=== PATIENT | female | born 1955 | race Caucasian/White ===

== ENCOUNTER 2019-10-07 15:41 | Observation (INO) | payer BC ==
[2019-10-07] MEDS ORDERED: BABY ASPIRIN 81 MG CHEW PO ONE ×2 (16:27→16:33)
[2019-10-07] MEDS ORDERED: BABY ASPIRIN 81 MG CHEW ONE (16:33)
--- NOTE | 2019-10-07 16:36 | ERPHSYRPT ---
- History of Present Illness Time Seen by Provider: 10/07/19 16:00 Source: patient Exam Limitations: no limitations Patient Subjective Stated Complaint: abnormal labs Triage Nursing Assessment: pt to ED sent over from PCP for abnormal labs. pt states she does not know what labs were off. pt states she had EKG, cxr, and labs drawn today. was ordered EKG and cxr for heart palp x 2 weeks ordered by PCP. pt states feels anxious. denies CP or SOB. denies pain today. also denies cardiac hx. heart sounds clear, lung sounds clear and equal bilaterally. Physician History: 63 years old female with history of hypertension presented in the ER with chief complaint of more than a month off and on palpitation especially at nighttime. She has cut down her caffeine but still having palpitations and during that time she feels very anxious. She also report 2 weeks ago she had some burning sensation in the right anterior chest while she was cutting her grass in the yard. She does not have any chest pain or palpitation at present. She was seen at primary care office with chest x-ray and EKG done and was called to return to ER because of abnormal EKG. She denies any history of coronary artery disease but does have a strong family history of CAD. Denies tobacco abuse, cough fever or shortness of breath. Denies any [id number]-flmcnio cough and cold medications intake. Denies any drug or alcohol use. Timing/Duration: week(s), intermittent, improved Severity: moderate Modifying Factors: Improves With: nothing Associated Symptoms: chest pain Allergies/Adverse Reactions: adhesive tape Allergy (Verified 10/07/19 16:04) Rash Home Medications: Aspirin EC 81 mg [Ecotrin 81 mg] 81 mg PO DAILY 10/07/19 [History] Levothyroxine Sodium [Euthyrox] 50 mcg PO DAILY 10/07/19 [History] clonazePAM [Clonazepam] 0.25 - 0.5 mg PO BIDPRN PRN 10/07/19 [History] lisinopriL [Lisinopril] 5 mg PO DAILY 10/07/19 [History] Travel Risk - International Travel Have you traveled outside of the country in past 3 weeks: No - Coronavirus Screening Are you exhibiting any of the following symptoms?: No Close contact with a COVID-19 positive Pt in past 14-21 Days: No - Review of Systems Constitutional: No Symptoms Eyes: No Symptoms Ears, Nose, & Throat: No Symptoms Respiratory: No Symptoms Cardiac: Chest Pain, Palpitations Abdominal/Gastrointestinal: No Symptoms Genitourinary Symptoms: No Symptoms Musculoskeletal: No Symptoms Psychological: Anxiety Endocrine: No Symptoms Hematologic/Lymphatic: No Symptoms Immunological/Allergic: No Symptoms - Past Medical History Pertinent Past Medical History: Yes Cardiac History: Hypertension Endocrine Medical History: Hypothyroidism - Past Surgical History Past Surgical History: Yes Female Surgical History: Hysterectomy, Tubal Ligation Other Surgical History: cyst removed from neck, heel supr, bladder extension, carpal tunnel - Social History Smoking Status: Never smoker Exposure to second hand smoke: No Drug Use: none Patient Lives Alone: No - Female History Hx Now: No - Nursing Vital Signs Nursing Vital Signs: Initial Vital Signs Temperature 99.0 F 10/07/19 15:54 Pulse Rate 83 10/07/19 15:54 Respiratory Rate 18 10/07/19 15:54 Blood Pressure 158/81 10/07/19 15:54 O2 Sat by Pulse Oximetry 95 10/07/19 15:54 Pain Scale Pain Intensity 0 - Physical Exam General Appearance: no apparent distress, alert Eye Exam: PERRL/EOMI, eyes nml inspection Ears, Nose, Throat Exam: normal ENT inspection, TMs normal, pharynx normal Neck Exam: normal inspection, non-tender, supple, full range of motion Respiratory Exam: normal breath sounds, lungs clear Cardiovascular Exam: regular rate/rhythm, normal heart sounds Gastrointestinal/Abdomen Exam: soft, normal bowel sounds, No tenderness Back Exam: normal inspection, normal range of motion, No CVA tenderness Neurologic Exam: alert, oriented x 3, cooperative, maintenance apprentice II-XII nml as tested Skin Exam: normal color SpO2 Interpretation: normal SpO2: 95 O2 Delivery: Room Air - Course Nursing assessment & vital signs reviewed: Yes EKG Interpreted by Me: RATE, Sinus Rhythm (76), NORMAL AXIS, NORMAL INTERVALS (Mild ST depression in V2 V3/V4) Ordered Tests: Active Orders 24 hr Category Date Time Status Bedrest with BRP/BSC ROUTINE Activity 10/07/19 18:15 Active Up With Assistance ROUTINE Activity 10/07/19 18:15 Active Mail Delivery Supervisor STAT Care 10/07/19 16:27 Completed Code Status Order ROUTINE Care 10/07/19 18:15 Active EKG-ER Only STAT Care 10/07/19 16:27 Completed IV Care Q6H Care 10/07/19 18:15 Active IV Insertion STAT Care 10/07/19 16:[address] in Observation ROUTINE Care 10/07/19 18:15 Active Weight,Daily 0600 Care 10/07/19 18:15 Active Heart-Healthy Diet Diet 10/07/19 Breakfast Active CBC W DIFF AM.LAB Lab 10/08/19 04:00 Ordered CBC W DIFF Stat Lab 10/07/19 16:30 Completed CMP AM.LAB Lab 10/08/19 04:00 Ordered CMP Stat Lab 10/07/19 16:30 Completed D-DIMER QUANTITATIVE Stat Lab 10/07/19 16:30 Completed NT PRO BNP Stat Lab 10/07/19 16:30 Completed TROPONIN Q3H Lab 10/07/19 16:30 Completed TROPONIN Q3H Lab 10/07/19 19:30 Ordered TROPONIN Q3H Lab 10/07/19 22:30 Ordered TROPONIN Q3H Lab 10/08/19 01:30 Ordered TROPONIN Q3H Lab 10/08/19 04:30 Ordered Transfer Order Routine Transfer 10/07/19 Completed Medication Summary Generic Name Dose Route Start Last Admin Trade Name Freq PRN Reason Stop Dose Admin Acetaminophen 650 mg 10/07/19 18:15 Tylenol 325 Mg PO 11/06/19 18:14 Q4H PRN PRN PAIN AND/OR FEVER Famotidine 20 mg 10/07/19 22:00 Pepcid 20 Mg Vial IV 11/06/19 21:59 Q12HT BLANCA Ondansetron HCl 4 mg 10/07/19 18:15 Zofran 4 Mg/2 Ml Vial IV 11/06/19 18:14 Q6H PRN PRN NAUSEA/VOMITING Discontinued Medications Generic Name Dose Route Start Last Admin Trade Name Freq PRN Reason Stop Dose Admin Aspirin 324 mg 10/07/19 16:27 10/07/19 16:33 Baby Aspirin 81 Mg Chew PO 10/07/19 16:28 Not Given STAT ONE Aspirin 243 mg 10/07/19 16:33 10/07/19 16:34 Baby Aspirin 81 Mg Chew PO 10/07/19 16:34 243 mg STAT ONE Administration Aspirin Confirm 10/07/19 16:33 Baby Aspirin 81 Mg Chew Administered 10/07/19 16:34 Dose 243 mg .ROUTE .STK-MED ONE Lab/Rad Data: Laboratory Result Diagrams 10/07/19 16:30 10/07/19 16:30 Laboratory Results 10/07/19 10/07/19 10/07/19 Range/Units 16:30 16:30 16:30 WBC (4.0-10.5) K/mm3 RBC (4.1-5.4) M/mm3 Hgb (12.0-16.0) gm/dl Hct (35-47) % MCV (78-100) fl MCH (26-32) pg MCHC (32-36) g/dl RDW (11.5-14.0) % Plt Count (150-450) K/mm3 MPV (7.5-11.0) fl Gran % (36.0-66.0) % Eos # (Auto) (0-0.5) Absolute Lymphs (auto) (1.0-4.6) Absolute Monos (auto) (0.0-1.3) Lymphocytes % (24.0-44.0) % Monocytes % (0.0-12.0) % Eosinophils % (0.00-5.0) % Basophils % (0.0-0.4) % Absolute Granulocytes (1.4-6.9) Basophils # (0-0.4) D-Dimer 264 (215-500) ng/mL Sodium 137 (137-145) mmol/L Potassium 3.8 (3.5-5.1) mmol/L Chloride 104 (98-107) mmol/L Carbon Dioxide 25 (22-30) mmol/L Anion Gap 12.8 (5-15) MEQ/L BUN 16 (7-17) mg/dL Creatinine 0.50 L (0.52-1.04) mg/dL Estimated GFR > 60.0 ML/MIN Glucose 107 H (74-106) mg/dL Calcium 10.6 H (8.4-10.2) mg/dL Total Bilirubin 0.80 (0.2-1.3) mg/dL AST 31 (14-36) U/L ALT 31 (0-35) U/L Alkaline Phosphatase 77 (38-126) U/L Troponin I < 0.012 (0.000-0.034) ng/mL NT-Pro-B Natriuret Pep 67.1 (0-900) pg/mL Serum Total Protein 7.8 (6.3-8.2) g/dL Albumin 4.8 (3.5-5.0) g/dL 10/07/19 Range/Units 16:30 WBC 4.9 (4.0-10.5) K/mm3 RBC 4.44 (4.1-5.4) M/mm3 Hgb 14.3 (12.0-16.0) gm/dl Hct 42.3 (35-47) % MCV 95.3 (78-100) fl MCH 32.2 H (26-32) pg MCHC 33.8 (32-36) g/dl RDW 13.4 (11.5-14.0) % Plt Count 226 (150-450) K/mm3 MPV 10.4 (7.5-11.0) fl Gran % 59.1 (36.0-66.0) % Eos # (Auto) 0.10 (0-0.5) Absolute Lymphs (auto) 1.46 (1.0-4.6) Absolute Monos (auto) 0.40 (0.0-1.3) Lymphocytes % 30.0 (24.0-44.0) % Monocytes % 8.2 (0.0-12.0) % Eosinophils % 2.1 (0.00-5.0) % Basophils % 0.6 (0.0-0.4) % Absolute Granulocytes 2.87 (1.4-6.9) Basophils # 0.03 (0-0.4) D-Dimer (215-500) ng/mL Sodium (137-145) mmol/L Potassium (3.5-5.1) mmol/L Chloride (98-107) mmol/L Carbon Dioxide (22-30) mmol/L Anion Gap (5-15) MEQ/L BUN (7-17) mg/dL Creatinine (0.52-1.04) mg/dL Estimated GFR ML/MIN Glucose (74-106) mg/dL Calcium (8.4-10.2) mg/dL Total Bilirubin (0.2-1.3) mg/dL AST (14-36) U/L ALT (0-35) U/L Alkaline Phosphatase (38-126) U/L Troponin I (0.000-0.034) ng/mL NT-Pro-B Natriuret Pep (0-900) pg/mL Serum Total Protein (6.3-8.2) g/dL Albumin (3.5-5.0) g/dL - Progress Progress: unchanged, re-examined Progress Note: 10/07/19 63 years old is evaluated for intermittent palpitations and occasional chest pain with abnormal EKG at primary care office. Patient denies any chest pain or palpitation today. She has a EKG showing some T wave inversion in inferior leads and minimal ST depression in anterior leads. Initial troponins are negative. Negative D-dimers. Chest x-ray negative for any acute findings. She is given aspirin. Patient remained asymptomatic. Discussed with her primary care doctor Marissa, recommended observation admission. Discussed with Dr. Salcedo and patient is being admitted. Discussed with : Jim Will see patient in: hospital (observation) Counseled pt/family regarding: lab results, diagnosis, rad results - Departure Departure Disposition: Observation Clinical Impression: Chest pain, rule out acute myocardial infarction, Intermittent palpitations Condition: Stable Critical Care Time: No
[2019-10-07 16:56] LABS: Absolute Neutrophil Ct (ANC) 2.87 (1.4-6.9); BASOPHIL % 0.6 % (0.0-0.4); Basophil (Absolute #) 0.03 (0-0.4); Eosinophil % 2.1 % (0.00-5.0); Hematocrit 42.3 % (35-47); Hemoglobin 14.3 gm/dl (12.0-16.0); Lymphocyte (Absolute #) 1.46 (1.0-4.6); Mean Cell Volume 95.3 fl (78-100); Mean Corpuscular Hemoglobin 32.2 pg (26-32); Mean Corpuscular Hgb Concent. 33.8 g/dl (32-36); Mean Platelet Volume 10.4 fl (7.5-11.0); Monocytes % 8.2 % (0.0-12.0); Neutrophil % 59.1 % (36.0-66.0); Platelet Count 226 K/mm3 (150-450); Red Blood Count 4.44 M/mm3 (4.1-5.4); Red Cell Distribution Width 13.4 % (11.5-14.0); White Blood Count 4.9 K/mm3 (4.0-10.5)
[2019-10-07 17:13] LABS: ALBUMIN 4.8 g/dL (3.5-5.0); ALKALINE PHOSPHATASE 77 U/L (38-126); ANION GAP 12.8 MEQ/L (5-15); BLOOD UREA NITROGEN 16 mg/dL (7-17); CHLORIDE 104 mmol/L (98-107); Calcium 10.6 mg/dL (8.4-10.2); Carbon Dioxide 25 mmol/L (22-30); Glucose 107 mg/dL (74-106); NT PRO BNP 67.1 pg/mL (0-900); Potassium 3.8 mmol/L (3.5-5.1); SGOT/AST 31 U/L (14-36); SGPT/ALT 31 U/L (0-35); SODIUM 137 mmol/L (137-145); Total Protein 7.8 g/dL (6.3-8.2)
[2019-10-07] MEDS ORDERED: Zofran 4 MG/2 ML VIAL IV PRN (18:15)
[2019-10-07] MEDS ORDERED: TYLENOL 325 MG PO PRN (18:15)
[2019-10-07 18:40] LABS: Appearance SLIGHTLY CLOUDY (CLEAR); Bilirubin NEGATIVE (NEGATIVE); Blood NEGATIVE Ery/ul (0-5); Glucose NEGATIVE (NEGATIVE); Ketones TRACE (NEGATIVE); Leukocyte Esterase MODERATE (NEGATIVE); Mucus SLIGHT /HPF (NEGATIVE); Nitrite NEGATIVE (NEGATIVE); Protein,Urine Dip NEGATIVE (Negative); Specific Gravity 1.011 (1.005-1.025); Urobilinogen NEGATIVE mg/dL (0-1)
[2019-10-07] MEDS ORDERED: Klonopin 0.5 MG PO PRN (19:58)
[2019-10-07] MEDS: Pepcid 20 MG VIAL IV SCH (22:23)
[2019-10-08 05:11] LABS: Absolute Neutrophil Ct (ANC) 2.71 (1.4-6.9); BASOPHIL % 0.4 % (0.0-0.4); Basophil (Absolute #) 0.02 (0-0.4); Eosinophil % 2.4 % (0.00-5.0); Eosinophil (Absolute #) 0.11 (0-0.5); Hematocrit 43.6 % (35-47); Hemoglobin 14.3 gm/dl (12.0-16.0); Lymphocytes % 30.2 % (24.0-44.0); Mean Cell Volume 96.7 fl (78-100); Mean Corpuscular Hemoglobin 31.7 pg (26-32); Mean Corpuscular Hgb Concent. 32.8 g/dl (32-36); Mean Platelet Volume 10.3 fl (7.5-11.0); Monocytes % 8.6 % (0.0-12.0); Neutrophil % 58.4 % (36.0-66.0); Platelet Count 199 K/mm3 (150-450); Red Blood Count 4.51 M/mm3 (4.1-5.4); Red Cell Distribution Width 13.5 % (11.5-14.0); White Blood Count 4.6 K/mm3 (4.0-10.5)
[2019-10-08 05:26] LABS: ALBUMIN 4.4 g/dL (3.5-5.0); ALKALINE PHOSPHATASE 70 U/L (38-126); ANION GAP 11.6 MEQ/L (5-15); BLOOD UREA NITROGEN 12 mg/dL (7-17); CHLORIDE 104 mmol/L (98-107); Calcium 9.6 mg/dL (8.4-10.2); Carbon Dioxide 25 mmol/L (22-30); Creatinine 1 0.49 mg/dL (0.52-1.04); Glucose 123 mg/dL (74-106); Potassium 3.8 mmol/L (3.5-5.1); SGOT/AST 32 U/L (14-36); SGPT/ALT 33 U/L (0-35); SODIUM 137 mmol/L (137-145); Total Protein 7.4 g/dL (6.3-8.2)
[2019-10-08] MEDS: Pepcid 20 MG VIAL IV SCH (09:10)
[2019-10-08] MEDS ORDERED: Zestril 5 MG PO SCH (10:00)
[2019-10-08] MEDS ORDERED: ECOTRIN 81 MG PO SCH (10:00)
[2019-10-08] MEDS ORDERED: SYNTHROID 50 MCG PO SCH (10:00)
[2019-10-08 11:24] VITALS: BP 112/75; PULSE 65; O2SAT 96
--- NOTE | 2019-10-08 12:52 | PCM.SSS ---
History of Present Illness - Chief Complaint Chief Complaint: c/o chest pain for 1-2 days History of Present Illness: is a 63 year old female with history of hypertension presented in the ER with chief complaint of more than a month off and on palpitation especially at nighttime. She has cut down her caffeine but still having palpitations and during that time she feels very anxious. She also report 2 weeks ago she had some burning sensation in the right anterior chest while she was cutting her grass in the yard. She does not have any chest pain or palpitation at present. She was seen at primary care office with chest x-ray and EKG done and was called to return to ER because of abnormal EKG. She denies any history of coronary artery disease but does have a strong family history of CAD. Denies tobacco abuse, cough fever or shortness of breath. Denies any [id number] cough and cold medications intake. Denies any drug or alcohol use. Timing/Duration: week(s), intermittent, improved - Review of Systems Constitutional: No Fever, No Chills Eyes: No Symptoms Ears, Nose, & Throat: No Symptoms Respiratory: No Cough, No Short Of Breath Cardiac: Chest Pain, No Edema, No Syncope Abdominal/Gastrointestinal: No Abdominal Pain, No Nausea, No Vomiting, No Diarrhea Genitourinary Symptoms: No Dysuria Musculoskeletal: No Back Pain, No Neck Pain Skin: No Rash Neurological: No Dizziness, No Focal Weakness, No Sensory Changes Psychological: No Symptoms Endocrine: No Symptoms Hematologic/Lymphatic: No Symptoms Immunological/Allergic: No Symptoms Medications & Allergies Home Medications: Home Medication List Aspirin EC 81 mg [Ecotrin 81 mg] 81 mg PO DAILY 10/07/19 [History Confirmed 10/07/19] Levothyroxine Sodium [Euthyrox] 50 mcg PO DAILY 10/07/19 [History Confirmed 10/07/19] clonazePAM [Clonazepam] 0.25 - 0.5 mg PO BIDPRN PRN 10/07/19 [History Confirmed 10/07/19] lisinopriL [Lisinopril] 5 mg PO DAILY 10/07/19 [History Confirmed 10/07/19] Allergies/Adverse Reactions: Allergies Allergy/AdvReac Type Severity Reaction Status Date / Time adhesive tape Allergy Rash Verified 10/07/19 16:04 - Past Medical History Past Medical History: Yes ENT History: Cataracts Cardiac History: Hypertension Respiratory History: Bronchitis, Pneumonia Endocrine Medical History: Hypothyroidism Musculoskelatal History: Fractures GI Medical History: No Pertinent History History: No Pertinent History Pyscho-Social History: Anxiety Reproductive Disorders: No Pertinent History - Female History Are you now?: No - Past Surgical History Past Surgical History: Yes Neuro Surgical History: No Pertinent History Cardiac History: No Pertinent History Respiratory Surgery: No Pertinent History GI Surgical History: No Pertinent History Genitourinary Surgical Hx: No Pertinent History Musculskeletal Surgical Hx: No Pertinent History Female Surgical History: Hysterectomy, Tubal Ligation Other Surgical History: cyst removed from neck, heel supr, bladder extension, carpal tunnel - Social History Smoking Status: Never smoker Exposure to second hand smoke: No Alcohol: None Drug Use: none - Physical Exam Vital Signs: Vital Signs - 24 hr Temp Pulse Resp BP Pulse Ox 10/08/19 11:22 99.0 F 65 15 112/75 96 10/08/19 07:19 97.8 F 59 L 18 137/77 95 10/08/19 04:00 98.3 F 64 17 133/78 94 L 10/07/19 23:52 97.7 F 57 L 15 108/62 94 L 10/07/19 20:00 98.1 F 64 16 145/76 96 10/07/19 18:45 98.1 F 64 16 145/76 96 10/07/19 18:43 95 10/07/19 17:22 69 15 140/81 96 10/07/19 16:44 70 15 124/85 94 L 10/07/19 15:54 99.0 F 83 18 158/81 95 General Appearance: no apparent distress, alert Neurologic Exam: alert, oriented x 3, cooperative, normal mood/affect, nml cerebellar function, nml station & gait, sensation nml, No motor deficits Eye Exam: PERRL/EOMI, eyes nml inspection Ears, Nose, Throat Exam: normal ENT inspection, TMs normal, pharynx normal, moist mucous membranes Neck Exam: normal inspection, non-tender, supple, full range of motion Respiratory Exam: normal breath sounds, lungs clear, No respiratory distress Cardiovascular Exam: regular rate/rhythm, normal heart sounds, normal peripheral pulses Gastrointestinal/Abdomen Exam: soft, normal bowel sounds, No tenderness, No mass Back Exam: normal inspection, normal range of motion, No CVA tenderness, No vertebral tenderness Extremity Exam: normal inspection, normal range of motion, pelvis stable Skin Exam: normal color, warm, dry, No rash Lymphatic Exam: No adenopathy Results - Labs Lab/Micro Results: Lab Results-Last 24 Hours 10/07/19 10/07/19 10/07/19 Range/Units 16:30 16:30 16:30 WBC 4.9 (4.0-10.5) K/mm3 RBC 4.44 (4.1-5.4) M/mm3 Hgb 14.3 (12.0-16.0) gm/dl Hct 42.3 (35-47) % MCV 95.3 (78-100) fl MCH 32.2 H (26-32) pg MCHC 33.8 (32-36) g/dl RDW 13.4 (11.5-14.0) % Plt Count 226 (150-450) K/mm3 MPV 10.4 (7.5-11.0) fl Gran % 59.1 (36.0-66.0) % Eos # (Auto) 0.10 (0-0.5) Absolute Lymphs (auto) 1.46 (1.0-4.6) Absolute Monos (auto) 0.40 (0.0-1.3) Lymphocytes % 30.0 (24.0-44.0) % Monocytes % 8.2 (0.0-12.0) % Eosinophils % 2.1 (0.00-5.0) % Basophils % 0.6 (0.0-0.4) % Absolute Granulocytes 2.87 (1.4-6.9) Basophils # 0.03 (0-0.4) D-Dimer 264 (215-500) ng/mL Sodium 137 (137-145) mmol/L Potassium 3.8 (3.5-5.1) mmol/L Chloride 104 (98-107) mmol/L Carbon Dioxide 25 (22-30) mmol/L Anion Gap 12.8 (5-15) MEQ/L BUN 16 (7-17) mg/dL Creatinine 0.50 L (0.52-1.04) mg/dL Estimated GFR > 60.0 ML/MIN Glucose 107 H (74-106) mg/dL Calcium 10.6 H (8.4-10.2) mg/dL Total Bilirubin 0.80 (0.2-1.3) mg/dL AST 31 (14-36) U/L ALT 31 (0-35) U/L Alkaline Phosphatase 77 (38-126) U/L Troponin I (0.000-0.034) ng/mL NT-Pro-B Natriuret Pep 67.1 (0-900) pg/mL Serum Total Protein 7.8 (6.3-8.2) g/dL Albumin 4.8 (3.5-5.0) g/dL Urine Color (YELLOW) Urine Appearance (CLEAR) Urine pH (5-6) Ur Specific Rowdy (1.005-1.025) Urine Protein (Negative) Urine Ketones (NEGATIVE) Urine Blood (0-5) Diogo/ul Urine Nitrite (NEGATIVE) Urine Bilirubin (NEGATIVE) Urine Urobilinogen (0-1) mg/dL Ur Leukocyte Esterase (NEGATIVE) Urine WBC (Auto) (0-5) /HPF Urine RBC (Auto) (0-2) /HPF U Epithel Cells (Auto) (FEW) /HPF Urine Bacteria (Auto) (NEGATIVE) /HPF Urine Mucus (Auto) (NEGATIVE) /HPF Urine Culture Reflexed (NO) Urine Glucose (NEGATIVE) mg/dL 10/07/19 10/07/19 10/07/19 Range/Units 16:30 18:09 19:25 WBC (4.0-10.5) K/mm3 RBC (4.1-5.4) M/mm3 Hgb (12.0-16.0) gm/dl Hct (35-47) % MCV (78-100) fl MCH (26-32) pg MCHC (32-36) g/dl RDW (11.5-14.0) % Plt Count (150-450) K/mm3 MPV (7.5-11.0) fl Gran % (36.0-66.0) % Eos # (Auto) (0-0.5) Absolute Lymphs (auto) (1.0-4.6) Absolute Monos (auto) (0.0-1.3) Lymphocytes % (24.0-44.0) % Monocytes % (0.0-12.0) % Eosinophils % (0.00-5.0) % Basophils % (0.0-0.4) % Absolute Granulocytes (1.4-6.9) Basophils # (0-0.4) D-Dimer (215-500) ng/mL Sodium (137-145) mmol/L Potassium (3.5-5.1) mmol/L Chloride (98-107) mmol/L Carbon Dioxide (22-30) mmol/L Anion Gap (5-15) MEQ/L BUN (7-17) mg/dL Creatinine (0.52-1.04) mg/dL Estimated GFR ML/MIN Glucose (74-106) mg/dL Calcium (8.4-10.2) mg/dL Total Bilirubin (0.2-1.3) mg/dL AST (14-36) U/L ALT (0-35) U/L Alkaline Phosphatase (38-126) U/L Troponin I < 0.012 < 0.012 (0.000-0.034) ng/mL NT-Pro-B Natriuret Pep (0-900) pg/mL Serum Total Protein (6.3-8.2) g/dL Albumin (3.5-5.0) g/dL Urine Color YELLOW (YELLOW) Urine Appearance SLIGHTLY CLOUDY (CLEAR) Urine pH 6.0 (5-6) Ur Specific Rowdy 1.011 (1.005-1.025) Urine Protein NEGATIVE (Negative) Urine Ketones TRACE (NEGATIVE) Urine Blood NEGATIVE (0-5) Diogo/ul Urine Nitrite NEGATIVE (NEGATIVE) Urine Bilirubin NEGATIVE (NEGATIVE) Urine Urobilinogen NEGATIVE (0-1) mg/dL Ur Leukocyte Esterase MODERATE (NEGATIVE) Urine WBC (Auto) 6-10 (0-5) /HPF Urine RBC (Auto) NONE (0-2) /HPF U Epithel Cells (Auto) NONE (FEW) /HPF Urine Bacteria (Auto) NONE (NEGATIVE) /HPF Urine Mucus (Auto) SLIGHT (NEGATIVE) /HPF Urine Culture Reflexed NO (NO) Urine Glucose NEGATIVE (NEGATIVE) mg/dL 10/07/19 10/08/19 10/08/19 Range/Units 23:00 01:30 04:38 WBC (4.0-10.5) K/mm3 RBC (4.1-5.4) M/mm3 Hgb (12.0-16.0) gm/dl Hct (35-47) % MCV (78-100) fl MCH (26-32) pg MCHC (32-36) g/dl RDW (11.5-14.0) % Plt Count (150-450) K/mm3 MPV (7.5-11.0) fl Gran % (36.0-66.0) % Eos # (Auto) (0-0.5) Absolute Lymphs (auto) (1.0-4.6) Absolute Monos (auto) (0.0-1.3) Lymphocytes % (24.0-44.0) % Monocytes % (0.0-12.0) % Eosinophils % (0.00-5.0) % Basophils % (0.0-0.4) % Absolute Granulocytes (1.4-6.9) Basophils # (0-0.4) D-Dimer (215-500) ng/mL Sodium (137-145) mmol/L Potassium (3.5-5.1) mmol/L Chloride (98-107) mmol/L Carbon Dioxide (22-30) mmol/L Anion Gap (5-15) MEQ/L BUN (7-17) mg/dL Creatinine (0.52-1.04) mg/dL Estimated GFR ML/MIN Glucose (74-106) mg/dL Calcium (8.4-10.2) mg/dL Total Bilirubin (0.2-1.3) mg/dL AST (14-36) U/L ALT (0-35) U/L Alkaline Phosphatase (38-126) U/L Troponin I < 0.012 < 0.012 < 0.012 (0.000-0.034) ng/mL NT-Pro-B Natriuret Pep (0-900) pg/mL Serum Total Protein (6.3-8.2) g/dL Albumin (3.5-5.0) g/dL Urine Color (YELLOW) Urine Appearance (CLEAR) Urine pH (5-6) Ur Specific Rowdy (1.005-1.025) Urine Protein (Negative) Urine Ketones (NEGATIVE) Urine Blood (0-5) Diogo/ul Urine Nitrite (NEGATIVE) Urine Bilirubin (NEGATIVE) Urine Urobilinogen (0-1) mg/dL Ur Leukocyte Esterase (NEGATIVE) Urine WBC (Auto) (0-5) /HPF Urine RBC (Auto) (0-2) /HPF U Epithel Cells (Auto) (FEW) /HPF Urine Bacteria (Auto) (NEGATIVE) /HPF Urine Mucus (Auto) (NEGATIVE) /HPF Urine Culture Reflexed (NO) Urine Glucose (NEGATIVE) mg/dL 10/08/19 10/08/19 Range/Units 04:38 04:38 WBC 4.6 (4.0-10.5) K/mm3 RBC 4.51 (4.1-5.4) M/mm3 Hgb 14.3 (12.0-16.0) gm/dl Hct 43.6 (35-47) % MCV 96.7 (78-100) fl MCH 31.7 (26-32) pg MCHC 32.8 (32-36) g/dl RDW 13.5 (11.5-14.0) % Plt Count 199 (150-450) K/mm3 MPV 10.3 (7.5-11.0) fl Gran % 58.4 (36.0-66.0) % Eos # (Auto) 0.11 (0-0.5) Absolute Lymphs (auto) 1.40 (1.0-4.6) Absolute Monos (auto) 0.40 (0.0-1.3) Lymphocytes % 30.2 (24.0-44.0) % Monocytes % 8.6 (0.0-12.0) % Eosinophils % 2.4 (0.00-5.0) % Basophils % 0.4 (0.0-0.4) % Absolute Granulocytes 2.71 (1.4-6.9) Basophils # 0.02 (0-0.4) D-Dimer (215-500) ng/mL Sodium 137 (137-145) mmol/L Potassium 3.8 (3.5-5.1) mmol/L Chloride 104 (98-107) mmol/L Carbon Dioxide 25 (22-30) mmol/L Anion Gap 11.6 (5-15) MEQ/L BUN 12 (7-17) mg/dL Creatinine 0.49 L (0.52-1.04) mg/dL Estimated GFR > 60.0 ML/MIN Glucose 123 H (74-106) mg/dL Calcium 9.6 (8.4-10.2) mg/dL Total Bilirubin 0.90 (0.2-1.3) mg/dL AST 32 (14-36) U/L ALT 33 (0-35) U/L Alkaline Phosphatase 70 (38-126) U/L Troponin I (0.000-0.034) ng/mL NT-Pro-B Natriuret Pep (0-900) pg/mL Serum Total Protein 7.4 (6.3-8.2) g/dL Albumin 4.4 (3.5-5.0) g/dL Urine Color (YELLOW) Urine Appearance (CLEAR) Urine pH (5-6) Ur Specific Rowdy (1.005-1.025) Urine Protein (Negative) Urine Ketones (NEGATIVE) Urine Blood (0-5) Diogo/ul Urine Nitrite (NEGATIVE) Urine Bilirubin (NEGATIVE) Urine Urobilinogen (0-1) mg/dL Ur Leukocyte Esterase (NEGATIVE) Urine WBC (Auto) (0-5) /HPF Urine RBC (Auto) (0-2) /HPF U Epithel Cells (Auto) (FEW) /HPF Urine Bacteria (Auto) (NEGATIVE) /HPF Urine Mucus (Auto) (NEGATIVE) /HPF Urine Culture Reflexed (NO) Urine Glucose (NEGATIVE) mg/dL Assessment/Plan (1) Chest pain, rule out acute myocardial infarction Current Visit: Yes Status: Resolved Assessment & Plan: Chief Complaint Diagnosis C/P r/o [place] Allergies Allergy/AdvReac Type Severity Reaction Status Date / Time adhesive tape Allergy Rash Verified 10/07/19 16:04 Vital Signs (Last 24 hours) Temp Pulse Resp BP Pulse Ox 10/08/19 11:22 99.0 F 65 15 112/75 96 10/08/19 07:19 97.8 F 59 L 18 137/77 95 10/08/19 04:00 98.3 F 64 17 133/78 94 L 10/07/19 23:52 97.7 F 57 L 15 108/62 94 L 10/07/19 20:00 98.1 F 64 16 145/76 96 10/07/19 18:45 98.1 F 64 16 145/76 96 10/07/19 18:43 95 10/07/19 17:22 69 15 140/81 96 10/07/19 16:44 70 15 124/85 94 L 10/07/19 15:54 99.0 F 83 18 158/81 95 Home Medications Medication Instructions Recorded Confirmed Last Taken Type Aspirin EC 81 mg [Ecotrin 81 81 mg PO DAILY 10/07/19 10/07/19 10/07/19 History mg] Levothyroxine Sodium [Euthyrox] 50 mcg PO DAILY 10/07/19 10/07/19 10/07/19 History clonazePAM [Clonazepam] 0.25 - 0.5 mg PO BIDPRN PRN 10/07/19 10/07/19 Unknown History lisinopriL [Lisinopril] 5 mg PO DAILY 10/07/19 10/07/19 10/07/19 History Current Medications Generic Name Dose Route Start Last Admin Trade Name Prism Digital PRN Reason Stop Dose Admin Acetaminophen 650 mg 10/07/19 18:15 Tylenol 325 Mg PO 11/06/19 18:14 Q4H PRN PRN PAIN AND/OR FEVER Aspirin 81 mg 10/08/19 10:00 10/08/19 09:10 Ecotrin 81 Mg PO 11/07/19 09:59 81 mg DAILY BLANCA Administration Clonazepam 0.25 - 0.5 mg 10/07/19 19:58 10/07/19 22:22 Klonopin 0.5 Mg PO 11/06/19 19:57 0.5 mg BIDPRN PRN Administration ANXIETY Famotidine 20 mg 10/07/19 22:00 10/08/19 09:10 Pepcid 20 Mg Vial IV 11/06/19 21:59 20 mg Q12HT BLANCA Administration Levothyroxine Sodium 50 mcg 10/08/19 10:00 10/08/19 09:10 Synthroid 50 Mcg PO 11/07/19 09:59 50 mcg DAILY@0600 BLANCA Administration Lisinopril 5 mg 10/08/19 10:00 10/08/19 09:11 Zestril 5 Mg PO 11/07/19 09:59 5 mg DAILY BLANCA Administration Ondansetron HCl 4 mg 10/07/19 18:15 Zofran 4 Mg/2 Ml Vial IV 11/06/19 18:14 Q6H PRN PRN NAUSEA/VOMITING Discontinued Medications Generic Name Dose Route Start Last Admin Trade Name FreEximia PRN Reason Stop Dose Admin Aspirin 324 mg 10/07/19 16:27 10/07/19 16:33 Baby Aspirin 81 Mg Chew PO 10/07/19 16:28 Not Given STAT ONE Aspirin 243 mg 10/07/19 16:33 10/07/19 16:34 Baby Aspirin 81 Mg Chew PO 10/07/19 16:34 243 mg STAT ONE Administration Aspirin Confirm 10/07/19 16:33 Baby Aspirin 81 Mg Chew Administered 10/07/19 16:34 Dose 243 mg .ROUTE .STK-MED ONE Intake & Output (Last 24 hours) 10/06/19 10/07/19 10/08/19 10/09/19 11:59 11:59 11:59 11:59 Intake Total 600 Balance 600 Weight 81.7 kg Laboratory Results (Last 24 hours) 10/08/19 10/08/19 10/08/19 04:38 04:38 04:38 WBC 4.6 RBC 4.51 Hgb 14.3 Hct 43.6 MCV 96.7 MCH 31.7 MCHC 32.8 RDW 13.5 Plt Count 199 MPV 10.3 Gran % 58.4 Eos # (Auto) 0.11 Absolute Lymphs (auto) 1.40 Absolute Monos (auto) 0.40 Lymphocytes % 30.2 Monocytes % 8.6 Eosinophils % 2.4 Basophils % 0.4 Absolute Granulocytes 2.71 Basophils # 0.02 D-Dimer Sodium 137 Potassium 3.8 Chloride 104 Carbon Dioxide 25 Anion Gap 11.6 BUN 12 Creatinine 0.49 L Estimated GFR > 60.0 Glucose 123 H Calcium 9.6 Total Bilirubin 0.90 AST 32 ALT 33 Alkaline Phosphatase 70 Troponin I < 0.012 NT-Pro-B Natriuret Pep Serum Total Protein 7.4 Albumin 4.4 Urine Color Urine Appearance Urine pH Ur Specific Rowdy Urine Protein Urine Ketones Urine Blood Urine Nitrite Urine Bilirubin Urine Urobilinogen Ur Leukocyte Esterase Urine WBC (Auto) Urine RBC (Auto) U Epithel Cells (Auto) Urine Bacteria (Auto) Urine Mucus (Auto) Urine Culture Reflexed Urine Glucose 10/08/19 10/07/19 10/07/19 01:30 23:00 19:25 WBC RBC Hgb Hct MCV MCH MCHC RDW Plt Count MPV Gran % Eos # (Auto) Absolute Lymphs (auto) Absolute Monos (auto) Lymphocytes % Monocytes % Eosinophils % Basophils % Absolute Granulocytes Basophils # D-Dimer Sodium Potassium Chloride Carbon Dioxide Anion Gap BUN Creatinine Estimated GFR Glucose Calcium Total Bilirubin AST ALT Alkaline Phosphatase Troponin I < 0.012 < 0.012 < 0.012 NT-Pro-B Natriuret Pep Serum Total Protein Albumin Urine Color Urine Appearance Urine pH Ur Specific Rowdy Urine Protein Urine Ketones Urine Blood Urine Nitrite Urine Bilirubin Urine Urobilinogen Ur Leukocyte Esterase Urine WBC (Auto) Urine RBC (Auto) U Epithel Cells (Auto) Urine Bacteria (Auto) Urine Mucus (Auto) Urine Culture Reflexed Urine Glucose 10/07/19 10/07/19 10/07/19 18:09 16:30 16:30 WBC RBC Hgb Hct MCV MCH MCHC RDW Plt Count MPV Gran % Eos # (Auto) Absolute Lymphs (auto) Absolute Monos (auto) Lymphocytes % Monocytes % Eosinophils % Basophils % Absolute Granulocytes Basophils # D-Dimer 264 Sodium Potassium Chloride Carbon Dioxide Anion Gap BUN Creatinine Estimated GFR Glucose Calcium Total Bilirubin AST ALT Alkaline Phosphatase Troponin I < 0.012 NT-Pro-B Natriuret Pep Serum Total Protein Albumin Urine Color YELLOW Urine Appearance SLIGHTLY CLOUDY Urine pH 6.0 Ur Specific Rowdy 1.011 Urine Protein NEGATIVE Urine Ketones TRACE Urine Blood NEGATIVE Urine Nitrite NEGATIVE Urine Bilirubin NEGATIVE Urine Urobilinogen NEGATIVE Ur Leukocyte Esterase MODERATE Urine WBC (Auto) 6-10 Urine RBC (Auto) NONE U Epithel Cells (Auto) NONE Urine Bacteria (Auto) NONE Urine Mucus (Auto) SLIGHT Urine Culture Reflexed NO Urine Glucose NEGATIVE 10/07/19 10/07/19 16:30 16:30 WBC 4.9 RBC 4.44 Hgb 14.3 Hct 42.3 MCV 95.3 MCH 32.2 H MCHC 33.8 RDW 13.4 Plt Count 226 MPV 10.4 Gran % 59.1 Eos # (Auto) 0.10 Absolute Lymphs (auto) 1.46 Absolute Monos (auto) 0.40 Lymphocytes % 30.0 Monocytes % 8.2 Eosinophils % 2.1 Basophils % 0.6 Absolute Granulocytes 2.87 Basophils # 0.03 D-Dimer Sodium 137 Potassium 3.8 Chloride 104 Carbon Dioxide 25 Anion Gap 12.8 BUN 16 Creatinine 0.50 L Estimated GFR > 60.0 Glucose 107 H Calcium 10.6 H Total Bilirubin 0.80 AST 31 ALT 31 Alkaline Phosphatase 77 Troponin I NT-Pro-B Natriuret Pep 67.1 Serum Total Protein 7.8 Albumin 4.8 Urine Color Urine Appearance Urine pH Ur Specific Rowdy Urine Protein Urine Ketones Urine Blood Urine Nitrite Urine Bilirubin Urine Urobilinogen Ur Leukocyte Esterase Urine WBC (Auto) Urine RBC (Auto) U Epithel Cells (Auto) Urine Bacteria (Auto) Urine Mucus (Auto) Urine Culture Reflexed Urine Glucose Orders (Last 24 hours) Category Date Time Status Bedrest with BRP/BSC ROUTINE Activity 10/07/19 18:15 Active Up With Assistance ROUTINE Activity 10/07/19 18:15 Active Trim And Burr Operator STAT Care 10/07/19 16:27 Completed Code Status Order ROUTINE Care 10/07/19 18:15 Active EKG-ER Only STAT Care 10/07/19 16:27 Completed IV Care Q6H Care 10/07/19 18:15 Active IV Insertion STAT Care 10/07/19 16:[address] in Observation ROUTINE Care 10/07/19 18:15 Active Weight,Daily 0600 Care 10/07/19 18:15 Active Nutritional Admission Screen ONCE Diet 10/07/19 19:27 Active CBC W DIFF AM.LAB Lab 10/08/19 04:38 Completed CBC W DIFF Stat Lab 10/07/19 16:30 Completed CMP AM.LAB Lab 10/08/19 04:38 Completed CMP Stat Lab 10/07/19 16:30 Completed D-DIMER QUANTITATIVE Stat Lab 10/07/19 16:30 Completed NT PRO BNP Stat Lab 10/07/19 16:30 Completed TROPONIN Q3H Lab 10/07/19 16:30 Completed TROPONIN Q3H Lab 10/07/19 19:25 Completed TROPONIN Q3H Lab 10/07/19 23:00 Completed TROPONIN Q3H Lab 10/08/19 01:30 Completed TROPONIN Q3H Lab 10/08/19 04:38 Completed UA W/RFX UR CULTURE Stat Lab 10/07/19 18:09 Completed Acetaminophen 325 mg [Tylenol 325 mg] Med 10/07/19 18:15 Active 650 mg PO Q4H PRN PRN Aspirin 81 gm Chew [Baby Aspirin 81 mg Chew] Med 10/07/19 16:33 Discontinued 243 mg .ROUTE .STK-MED ONE Aspirin 81 gm Chew [Baby Aspirin 81 mg Chew] Med 10/07/19 16:33 Discontinued 243 mg PO STAT ONE Aspirin 81 gm Chew [Baby Aspirin 81 mg Chew] Med 10/07/19 16:27 Discontinued 324 mg PO STAT ONE Aspirin EC 81 mg [Ecotrin 81 mg] Med 10/08/19 10:00 Active 81 mg PO DAILY Clonazepam 0.5 mg [Klonopin 0.5 MG] Med 10/07/19 19:58 Active 0.25 - 0.5 mg PO BIDPRN PRN Famotidine 20 mg Vial [Pepcid 20 MG VIAL] Med 10/07/19 22:00 Active 20 mg IV Q12HT Levothyroxine Sodium 50 Mcg [Synthroid 50 Mcg] Med 10/08/19 10:00 Active 50 mcg PO DAILY@0600 Lisinopril 5 mg [Zestril 5 MG] Med 10/08/19 10:00 Active 5 mg PO DAILY Ondansetron HCl 4 mg/2 ml [Zofran 4 MG/2 ML VIAL] Med 10/07/19 18:15 Active 4 mg IV Q6H PRN PRN Code(s): R07.9 - CHEST PAIN, UNSPECIFIED (2) Intermittent palpitations Current Visit: Yes Status: Resolved Code(s): R00.2 - PALPITATIONS Hospital Summary - Hospital Course Hospital Course: Last Vital Signs Temp 99.0 F 10/08/19 11:22 Pulse 65 10/08/19 11:22 Resp 15 10/08/19 11:22 BP 112/75 10/08/19 11:22 Pulse Ox 96 10/08/19 11:22 Allergies adhesive tape Allergy (Verified 10/07/19 16:04) Rash Active Medications Acetaminophen (Tylenol 325 Mg) 650 mg PO Q4H PRN PRN PRN Reason: PAIN AND/OR FEVER Stop: 11/06/19 18:14 Aspirin (Ecotrin 81 Mg) 81 mg PO DAILY [facility]ANCA Stop: 11/07/19 09:59 Last Admin: 10/08/19 09:10 Dose: 81 mg Documented by: Clonazepam (Klonopin 0.5 Mg) 0.25 - 0.5 mg PO BIDPRN PRN PRN Reason: ANXIETY Stop: 11/06/19 19:57 Last Admin: 10/07/19 22:22 Dose: 0.5 mg Documented by: Famotidine (Pepcid 20 Mg Vial) 20 mg IV Q12HT [facility] Stop: 11/06/19 21:59 Last Admin: 10/08/19 09:10 Dose: 20 mg Documented by: Levothyroxine Sodium (Synthroid 50 Mcg) 50 mcg PO DAILY@0600 [facility] Stop: 11/07/19 09:59 Last Admin: 10/08/19 09:10 Dose: 50 mcg Documented by: Lisinopril (Zestril 5 Mg) 5 mg PO DAILY [facility] Stop: 11/07/19 09:59 Last Admin: 10/08/19 09:11 Dose: 5 mg Documented by: Ondansetron HCl (Zofran 4 Mg/2 Ml Vial) 4 mg IV Q6H PRN PRN PRN Reason: NAUSEA/VOMITING Stop: 11/06/19 18:14 Intake & Output 10/08/19 10/09/19 11:59 11:59 Intake Total 600 Balance 600 Weight 81.7 kg Orders 10/07/19 19:27 Nutritional Admission Screen ONCE 10/07/19 19:58 Clonazepam 0.5 mg [Klonopin 0.5 MG] 0.25 - 0.5 mg PO BIDPRN PRN 10/08/19 10:00 Aspirin EC 81 mg [Ecotrin 81 mg] 81 mg PO DAILY Levothyroxine Sodium 50 Mcg [Synthroid 50 Mcg] 50 mcg PO DAILY@0600 Lisinopril 5 mg [Zestril 5 MG] 5 mg PO DAILY Lab Tests 10/07/19 10/07/19 10/07/19 16:30 16:30 16:30 WBC 4.9 RBC 4.44 Hgb 14.3 Hct 42.3 MCV 95.3 MCH 32.2 H MCHC 33.8 RDW 13.4 Plt Count 226 MPV 10.4 Gran % 59.1 Eos # (Auto) 0.10 Absolute Lymphs (auto) 1.46 Absolute Monos (auto) 0.40 Lymphocytes % 30.0 Monocytes % 8.2 Eosinophils % 2.1 Basophils % 0.6 Absolute Granulocytes 2.87 Basophils # 0.03 D-Dimer 264 Sodium 137 Potassium 3.8 Chloride 104 Carbon Dioxide 25 Anion Gap 12.8 BUN 16 Creatinine 0.50 L Estimated GFR > 60.0 Glucose 107 H Calcium 10.6 H Total Bilirubin 0.80 AST 31 ALT 31 Alkaline Phosphatase 77 Troponin I NT-Pro-B Natriuret Pep 67.1 Serum Total Protein 7.8 Albumin 4.8 Urine Color Urine Appearance Urine pH Ur Specific Rowdy Urine Protein Urine Ketones Urine Blood Urine Nitrite Urine Bilirubin Urine Urobilinogen Ur Leukocyte Esterase Urine WBC (Auto) Urine RBC (Auto) U Epithel Cells (Auto) Urine Bacteria (Auto) Urine Mucus (Auto) Urine Culture Reflexed Urine Glucose 10/07/19 10/07/19 10/07/19 16:30 18:09 19:25 WBC RBC Hgb Hct MCV MCH MCHC RDW Plt Count MPV Gran % Eos # (Auto) Absolute Lymphs (auto) Absolute Monos (auto) Lymphocytes % Monocytes % Eosinophils % Basophils % Absolute Granulocytes Basophils # D-Dimer Sodium Potassium Chloride Carbon Dioxide Anion Gap BUN Creatinine Estimated GFR Glucose Calcium Total Bilirubin AST ALT Alkaline Phosphatase Troponin I < 0.012 < 0.012 NT-Pro-B Natriuret Pep Serum Total Protein Albumin Urine Color YELLOW Urine Appearance SLIGHTLY CLOUDY Urine pH 6.0 Ur Specific Rowdy 1.011 Urine Protein NEGATIVE Urine Ketones TRACE Urine Blood NEGATIVE Urine Nitrite NEGATIVE Urine Bilirubin NEGATIVE Urine Urobilinogen NEGATIVE Ur Leukocyte Esterase MODERATE Urine WBC (Auto) 6-10 Urine RBC (Auto) NONE U Epithel Cells (Auto) NONE Urine Bacteria (Auto) NONE Urine Mucus (Auto) SLIGHT Urine Culture Reflexed NO Urine Glucose NEGATIVE 10/07/19 10/08/19 10/08/19 23:00 01:30 04:38 WBC RBC Hgb Hct MCV MCH MCHC RDW Plt Count MPV Gran % Eos # (Auto) Absolute Lymphs (auto) Absolute Monos (auto) Lymphocytes % Monocytes % Eosinophils % Basophils % Absolute Granulocytes Basophils # D-Dimer Sodium Potassium Chloride Carbon Dioxide Anion Gap BUN Creatinine Estimated GFR Glucose Calcium Total Bilirubin AST ALT Alkaline Phosphatase Troponin I < 0.012 < 0.012 < 0.012 NT-Pro-B Natriuret Pep Serum Total Protein Albumin Urine Color Urine Appearance Urine pH Ur Specific Rowdy Urine Protein Urine Ketones Urine Blood Urine Nitrite Urine Bilirubin Urine Urobilinogen Ur Leukocyte Esterase Urine WBC (Auto) Urine RBC (Auto) U Epithel Cells (Auto) Urine Bacteria (Auto) Urine Mucus (Auto) Urine Culture Reflexed Urine Glucose 10/08/19 10/08/19 04:38 04:38 WBC 4.6 RBC 4.51 Hgb 14.3 Hct 43.6 MCV 96.7 MCH 31.7 MCHC 32.8 RDW 13.5 Plt Count 199 MPV 10.3 Gran % 58.4 Eos # (Auto) 0.11 Absolute Lymphs (auto) 1.40 Absolute Monos (auto) 0.40 Lymphocytes % 30.2 Monocytes % 8.6 Eosinophils % 2.4 Basophils % 0.4 Absolute Granulocytes 2.71 Basophils # 0.02 D-Dimer Sodium 137 Potassium 3.8 Chloride 104 Carbon Dioxide 25 Anion Gap 11.6 BUN 12 Creatinine 0.49 L Estimated GFR > 60.0 Glucose 123 H Calcium 9.6 Total Bilirubin 0.90 AST 32 ALT 33 Alkaline Phosphatase 70 Troponin I NT-Pro-B Natriuret Pep Serum Total Protein 7.4 Albumin 4.4 Urine Color Urine Appearance Urine pH Ur Specific Rowdy Urine Protein Urine Ketones Urine Blood Urine Nitrite Urine Bilirubin Urine Urobilinogen Ur Leukocyte Esterase Urine WBC (Auto) Urine RBC (Auto) U Epithel Cells (Auto) Urine Bacteria (Auto) Urine Mucus (Auto) Urine Culture Reflexed Urine Glucose - Vitals & Intake/Output Vital Signs: Vital Signs Temperature 99.0 F 10/08/19 11:22 Pulse Rate 65 10/08/19 11:22 Respiratory Rate 15 10/08/19 11:22 Blood Pressure 112/75 10/08/19 11:22 O2 Sat by Pulse Oximetry 96 10/08/19 11:22 Intake & Output: Intake & Output 10/06/19 10/07/19 10/08/19 10/09/19 11:59 11:59 11:59 11:59 Intake Total 600 Balance 600 Weight 81.7 kg - Lab Result Diagrams: 10/08/19 04:38 10/08/19 04:38 Lab Results-Last 24 Hrs: Lab Results-Last 24 Hours 10/07/19 10/07/19 10/07/19 Range/Units 16:30 16:30 16:30 WBC 4.9 (4.0-10.5) K/mm3 RBC 4.44 (4.1-5.4) M/mm3 Hgb 14.3 (12.0-16.0) gm/dl Hct 42.3 (35-47) % MCV 95.3 (78-100) fl MCH 32.2 H (26-32) pg MCHC 33.8 (32-36) g/dl RDW 13.4 (11.5-14.0) % Plt Count 226 (150-450) K/mm3 MPV 10.4 (7.5-11.0) fl Gran % 59.1 (36.0-66.0) % Eos # (Auto) 0.10 (0-0.5) Absolute Lymphs (auto) 1.46 (1.0-4.6) Absolute Monos (auto) 0.40 (0.0-1.3) Lymphocytes % 30.0 (24.0-44.0) % Monocytes % 8.2 (0.0-12.0) % Eosinophils % 2.1 (0.00-5.0) % Basophils % 0.6 (0.0-0.4) % Absolute Granulocytes 2.87 (1.4-6.9) Basophils # 0.03 (0-0.4) D-Dimer 264 (215-500) ng/mL Sodium 137 (137-145) mmol/L Potassium 3.8 (3.5-5.1) mmol/L Chloride 104 (98-107) mmol/L Carbon Dioxide 25 (22-30) mmol/L Anion Gap 12.8 (5-15) MEQ/L BUN 16 (7-17) mg/dL Creatinine 0.50 L (0.52-1.04) mg/dL Estimated GFR > 60.0 ML/MIN Glucose 107 H (74-106) mg/dL Calcium 10.6 H (8.4-10.2) mg/dL Total Bilirubin 0.80 (0.2-1.3) mg/dL AST 31 (14-36) U/L ALT 31 (0-35) U/L Alkaline Phosphatase 77 (38-126) U/L Troponin I (0.000-0.034) ng/mL NT-Pro-B Natriuret Pep 67.1 (0-900) pg/mL Serum Total Protein 7.8 (6.3-8.2) g/dL Albumin 4.8 (3.5-5.0) g/dL Urine Color (YELLOW) Urine Appearance (CLEAR) Urine pH (5-6) Ur Specific Rowdy (1.005-1.025) Urine Protein (Negative) Urine Ketones (NEGATIVE) Urine Blood (0-5) Diogo/ul Urine Nitrite (NEGATIVE) Urine Bilirubin (NEGATIVE) Urine Urobilinogen (0-1) mg/dL Ur Leukocyte Esterase (NEGATIVE) Urine WBC (Auto) (0-5) /HPF Urine RBC (Auto) (0-2) /HPF U Epithel Cells (Auto) (FEW) /HPF Urine Bacteria (Auto) (NEGATIVE) /HPF Urine Mucus (Auto) (NEGATIVE) /HPF Urine Culture Reflexed (NO) Urine Glucose (NEGATIVE) mg/dL 10/07/19 10/07/19 10/07/19 Range/Units 16:30 18:09 19:25 WBC (4.0-10.5) K/mm3 RBC (4.1-5.4) M/mm3 Hgb (12.0-16.0) gm/dl Hct (35-47) % MCV (78-100) fl MCH (26-32) pg MCHC (32-36) g/dl RDW (11.5-14.0) % Plt Count (150-450) K/mm3 MPV (7.5-11.0) fl Gran % (36.0-66.0) % Eos # (Auto) (0-0.5) Absolute Lymphs (auto) (1.0-4.6) Absolute Monos (auto) (0.0-1.3) Lymphocytes % (24.0-44.0) % Monocytes % (0.0-12.0) % Eosinophils % (0.00-5.0) % Basophils % (0.0-0.4) % Absolute Granulocytes (1.4-6.9) Basophils # (0-0.4) D-Dimer (215-500) ng/mL Sodium (137-145) mmol/L Potassium (3.5-5.1) mmol/L Chloride (98-107) mmol/L Carbon Dioxide (22-30) mmol/L Anion Gap (5-15) MEQ/L BUN (7-17) mg/dL Creatinine (0.52-1.04) mg/dL Estimated GFR ML/MIN Glucose (74-106) mg/dL Calcium (8.4-10.2) mg/dL Total Bilirubin (0.2-1.3) mg/dL AST (14-36) U/L ALT (0-35) U/L Alkaline Phosphatase (38-126) U/L Troponin I < 0.012 < 0.012 (0.000-0.034) ng/mL NT-Pro-B Natriuret Pep (0-900) pg/mL Serum Total Protein (6.3-8.2) g/dL Albumin (3.5-5.0) g/dL Urine Color YELLOW (YELLOW) Urine Appearance SLIGHTLY CLOUDY (CLEAR) Urine pH 6.0 (5-6) Ur Specific Rowdy 1.011 (1.005-1.025) Urine Protein NEGATIVE (Negative) Urine Ketones TRACE (NEGATIVE) Urine Blood NEGATIVE (0-5) Diogo/ul Urine Nitrite NEGATIVE (NEGATIVE) Urine Bilirubin NEGATIVE (NEGATIVE) Urine Urobilinogen NEGATIVE (0-1) mg/dL Ur Leukocyte Esterase MODERATE (NEGATIVE) Urine WBC (Auto) 6-10 (0-5) /HPF Urine RBC (Auto) NONE (0-2) /HPF U Epithel Cells (Auto) NONE (FEW) /HPF Urine Bacteria (Auto) NONE (NEGATIVE) /HPF Urine Mucus (Auto) SLIGHT (NEGATIVE) /HPF Urine Culture Reflexed NO (NO) Urine Glucose NEGATIVE (NEGATIVE) mg/dL 10/07/19 10/08/19 10/08/19 Range/Units 23:00 01:30 04:38 WBC (4.0-10.5) K/mm3 RBC (4.1-5.4) M/mm3 Hgb (12.0-16.0) gm/dl Hct (35-47) % MCV (78-100) fl MCH (26-32) pg MCHC (32-36) g/dl RDW (11.5-14.0) % Plt Count (150-450) K/mm3 MPV (7.5-11.0) fl Gran % (36.0-66.0) % Eos # (Auto) (0-0.5) Absolute Lymphs (auto) (1.0-4.6) Absolute Monos (auto) (0.0-1.3) Lymphocytes % (24.0-44.0) % Monocytes % (0.0-12.0) % Eosinophils % (0.00-5.0) % Basophils % (0.0-0.4) % Absolute Granulocytes (1.4-6.9) Basophils # (0-0.4) D-Dimer (215-500) ng/mL Sodium (137-145) mmol/L Potassium (3.5-5.1) mmol/L Chloride (98-107) mmol/L Carbon Dioxide (22-30) mmol/L Anion Gap (5-15) MEQ/L BUN (7-17) mg/dL Creatinine (0.52-1.04) mg/dL Estimated GFR ML/MIN Glucose (74-106) mg/dL Calcium (8.4-10.2) mg/dL Total Bilirubin (0.2-1.3) mg/dL AST (14-36) U/L ALT (0-35) U/L Alkaline Phosphatase (38-126) U/L Troponin I < 0.012 < 0.012 < 0.012 (0.000-0.034) ng/mL NT-Pro-B Natriuret Pep (0-900) pg/mL Serum Total Protein (6.3-8.2) g/dL Albumin (3.5-5.0) g/dL Urine Color (YELLOW) Urine Appearance (CLEAR) Urine pH (5-6) Ur Specific [place]dy (1.005-1.025) Urine Protein (Negative) Urine Ketones (NEGATIVE) Urine Blood (0-5) Diogo/ul Urine Nitrite (NEGATIVE) Urine Bilirubin (NEGATIVE) Urine Urobilinogen (0-1) mg/dL Ur Leukocyte Esterase (NEGATIVE) Urine WBC (Auto) (0-5) /HPF Urine RBC (Auto) (0-2) /HPF U Epithel Cells (Auto) (FEW) /HPF Urine Bacteria (Auto) (NEGATIVE) /HPF Urine Mucus (Auto) (NEGATIVE) /HPF Urine Culture Reflexed (NO) Urine Glucose (NEGATIVE) mg/dL 10/08/19 10/08/19 Range/Units 04:38 04:38 WBC 4.6 (4.0-10.5) K/mm3 RBC 4.51 (4.1-5.4) M/mm3 Hgb 14.3 (12.0-16.0) gm/dl Hct 43.6 (35-47) % MCV 96.7 (78-100) fl MCH 31.7 (26-32) pg MCHC 32.8 (32-36) g/dl RDW 13.5 (11.5-14.0) % Plt Count 199 (150-450) K/mm3 MPV 10.3 (7.5-11.0) fl Gran % 58.4 (36.0-66.0) % Eos # (Auto) 0.11 (0-0.5) Absolute Lymphs (auto) 1.40 (1.0-4.6) Absolute Monos (auto) 0.40 (0.0-1.3) Lymphocytes % 30.2 (24.0-44.0) % Monocytes % 8.6 (0.0-12.0) % Eosinophils % 2.4 (0.00-5.0) % Basophils % 0.4 (0.0-0.4) % Absolute Granulocytes 2.71 (1.4-6.9) Basophils # 0.02 (0-0.4) D-Dimer (215-500) ng/mL Sodium 137 (137-145) mmol/L Potassium 3.8 (3.5-5.1) mmol/L Chloride 104 (98-107) mmol/L Carbon Dioxide 25 (22-30) mmol/L Anion Gap 11.6 (5-15) MEQ/L BUN 12 (7-17) mg/dL Creatinine 0.49 L (0.52-1.04) mg/dL Estimated GFR > 60.0 ML/MIN Glucose 123 H (74-106) mg/dL Calcium 9.6 (8.4-10.2) mg/dL Total Bilirubin 0.90 (0.2-1.3) mg/dL AST 32 (14-36) U/L ALT 33 (0-35) U/L Alkaline Phosphatase 70 (38-126) U/L Troponin I (0.000-0.034) ng/mL NT-Pro-B Natriuret Pep (0-900) pg/mL Serum Total Protein 7.4 (6.3-8.2) g/dL Albumin 4.4 (3.5-5.0) g/dL Urine Color (YELLOW) Urine Appearance (CLEAR) Urine pH (5-6) Ur Specific Rowdy (1.005-1.025) Urine Protein (Negative) Urine Ketones (NEGATIVE) Urine Blood (0-5) Diogo/ul Urine Nitrite (NEGATIVE) Urine Bilirubin (NEGATIVE) Urine Urobilinogen (0-1) mg/dL Ur Leukocyte Esterase (NEGATIVE) Urine WBC (Auto) (0-5) /HPF Urine RBC (Auto) (0-2) /HPF U Epithel Cells (Auto) (FEW) /HPF Urine Bacteria (Auto) (NEGATIVE) /HPF Urine Mucus (Auto) (NEGATIVE) /HPF Urine Culture Reflexed (NO) Urine Glucose (NEGATIVE) mg/dL - Discharge Discharge Date: 10/08/19 Disposition: Home, Self-Care Condition: Stable Prescriptions: Continue lisinopriL [Lisinopril] 5 mg PO DAILY clonazePAM [Clonazepam] 0.25 - 0.5 mg PO BIDPRN PRN PRN Reason: Anxiety Levothyroxine Sodium [Euthyrox] 50 mcg PO DAILY Aspirin EC 81 mg [Ecotrin 81 mg] 81 mg PO DAILY Follow up with: ZAYNAB SANCHEZ [Primary Care Provider] - 1 Week
== END 2019-10-08 13:22 | disposition home or self-care (01) ==
LOC: ED 15:41 → MED SURG 18:08 → UNDOADMOB 18:08 → UNDODISOB 10-08 13:22
PROVIDERS: ADMIT General Practice; ATTEND General Practice
DX: R07.9 Chest pain, unspecified (principal); I10 Essential (primary) hypertension; R00.2 Palpitations; E03.9 Hypothyroidism, unspecified; Z82.49 Family history of ischemic heart disease and other diseases of the circulatory system; Z79.899 Other long term (current) drug therapy
CPT/HCPCS: 36000; 36415; 71046; 80053; 81001; 83880; 84484; 85025; 85379; 93005; 93041; 93268; 99285; G0378; A9270-GY

== ENCOUNTER 2020-03-15 17:01 | Emergency (ER) | payer BC, SELFPAY ==
[2020-03-15] MEDS ORDERED: Norco 10/325 MG Tablet PO ONE (17:37)
[2020-03-15] MEDS ORDERED: Norco 10/325 MG Tablet ONE (17:44)
--- NOTE | 2020-03-15 18:05 | ERPHSYRPT ---
- History of Present Illness Time Seen by Provider: 03/15/20 17:17 Patient Subjective Stated Complaint: Pt was outside with the dogs and a 125 lb rottweiler ran into her left hip causing her left knee to buckle and injure it and then she fell on the ground on her right side, pt had already pulled a muscle in her right thigh 2 days prior and was unable to stand up, pt crawled through the yard and up the deck and into the house to call for help, pt is sore on inderjit hips and the left knee, pt also had a triple bypass done 3 months ago and is scared that she may have injured something in her chest although she didn't feel anything at the time Triage Nursing Assessment: Pt brought to the ER by her friend, hypertensive, rates pain as 5/10 as long as she isn't moving, left knee swollen and warm to touch, pulses normal, no other visible markings or bruising, denies hitting head, denies losing consiousness Physician History: 64 years old female presented in the ER with a chief complaint of left knee pain and swelling sudden onset prior to arrival. Patient reports 125 pounds dog ran into her left knee causing it buckle and leading to fall on the right hip. She heard a popping sound while going down in the left knee. She was unable to get up and put any weight on it. She is complaining of severe sharp shooting pain with minimal movements and palpation of left knee and associated swelling which is gradually worsening since it started. She also report having some soreness in the right eye for the last few days and after this fall she is having a little more but does not have any difficulty movements of both hips and right knee. No injury anywhere else. Method of Injury: direct blow Occurred: just prior to arrival Quality: sharpness Severity of Pain-Max: severe Severity of Pain-Current: severe Lower Extremities Pain: hip: right, knee: left Modifying Factors: Improves With: rest. Worsens With: immobilization, movement Associated Symptoms: popping sensation Allergies/Adverse Reactions: adhesive tape Allergy (Verified 03/15/20 17:37) Rash Home Medications: Levothyroxine Sodium [Euthyrox] 50 mcg PO DAILY 10/07/19 [History] clonazePAM [Clonazepam] 0.5 mg PO BIDPRN PRN 10/07/19 [History] Atorvastatin Calcium [Lipitor 40Mg] 40 mg PO DAILY 03/15/20 [History] Clopidogrel Bisulfate 75 mg [PLAVIX 75 MG Tablet] 75 mg PO DAILY 03/15/20 [History] Furosemide 20 mg [Lasix 20 mg] 20 mg PO BID 03/15/20 [History] Metformin HCl 500 mg [Glucophage 500 MG] 500 mg PO BIDWM 03/15/20 [History] Metoprolol Tartrate 25 mg [Lopressor 25MG Tab] 25 mg PO BID 03/15/20 [History] Potassium Chloride 10 Meq Tab* [Klor Con 10 MEQ] 10 meq PO BID 03/15/20 [History] Travel Risk - International Travel Have you traveled outside of the country in past 3 weeks: No - Coronavirus Screening Are you exhibiting any of the following symptoms?: No Close contact with a COVID-19 positive Pt in past 14-21 Days: No - Review of Systems Constitutional: No Symptoms Eyes: No Symptoms Ears, Nose, & Throat: No Symptoms Respiratory: No Symptoms Cardiac: No Symptoms Abdominal/Gastrointestinal: No Symptoms Genitourinary Symptoms: No Symptoms Musculoskeletal: Fall, Injury, Joint Redness, Joint Pain, Joint Swelling, Myalgias Skin: No Symptoms Neurological: No Symptoms Psychological: No Symptoms Endocrine: No Symptoms Hematologic/Lymphatic: No Symptoms - Past Medical History Pertinent Past Medical History: Yes ENT History: Cataracts Cardiac History: Coronary Artery Disease, Hypertension Respiratory History: Bronchitis, Pneumonia Endocrine Medical History: Hypothyroidism Musculoskeletal History: Fractures GI Medical History: No Pertinent History History: No Pertinent History Psycho-Social History: Anxiety Female Reproductive Disorders: No Pertinent History - Past Surgical History Past Surgical History: Yes Neuro Surgical History: No Pertinent History Cardiac: CABG Respiratory: No Pertinent History Gastrointestinal: No Pertinent History Genitourinary: No Pertinent History Musculoskeletal: No Pertinent History Female Surgical History: Hysterectomy, Tubal Ligation Other Surgical History: cyst removed from neck, heel supr, bladder extension, carpal tunnel - Social History Smoking Status: Never smoker Exposure to second hand smoke: Yes Drug Use: none Patient Lives Alone: No - Female History Hx Now: No - Nursing Vital Signs Nursing Vital Signs: Initial Vital Signs Temperature 96.6 F 03/15/20 17:19 Pulse Rate 93 H 12/29/20 17:19 Blood Pressure 152/77 12/29/20 17:19 O2 Sat by Pulse Oximetry 96 03/15/20 17:19 Pain Scale Pain Intensity 5 - Physical Exam General Appearance: mild distress, alert Eyes, Ears, Nose, Throat Exam: normal ENT inspection, pharynx normal Neck Exam: normal inspection, non-tender, supple, full range of motion Cardiovascular/Respiratory Exam: chest non-tender, normal breath sounds, regular rate/rhythm Gastrointestinal/Abdominal Exam: non-tender, soft Back Exam: normal inspection, normal range of motion Hips Exam: bilateral: non-tender, normal inspection, normal range of motion, no evidence of injury Legs Exam: right leg: soft tissue tenderness (Right eye), left leg: non-tender, bilateral leg: normal inspection, normal range of motion Knees Exam: right knee: non-tender, normal inspection, normal range of motion, no evidence of injury, left knee: bone tenderness, joint effusion, pain, soft tissue tenderness, swelling (Positive ballottement above knee) Ankle Exam: bilateral ankle: non-tender, normal inspection, normal range of motion, no evidence of injury Foot Exam: bilateral foot: non-tender, normal inspection, normal range of motion Neuro/Tendon Exam: normal sensation Mental Status Exam: alert, oriented x 3 Skin Exam: normal color SpO2 Interpretation: normal SpO2: 96 O2 Delivery: Room Air Ordered Tests: Medication Summary Discontinued Medications Generic Name Dose Route Start Last Admin Trade Name Chad PRN Reason Stop Dose Admin Hydrocodone Bitart/Acetaminophen 1 tab 03/15/20 17:37 03/15/20 17:45 [place] 10/325 Mg Tablet PO 03/15/20 17:38 1 tab STAT ONE Administration Hydrocodone Bitart/Acetaminophen Confirm 03/15/20 17:44 [place] 10/325 Mg Tablet Administered 03/15/20 17:45 Dose 1 tab .ROUTE .STK-MED ONE - Progress Progress: improved, pain not gone completely, re-examined Progress Note: 03/15/20 18:38 She is offered parenteral pain medication which she refused. Given oral [place], on reevaluation her pain is better. I have obtained x-rays left knee which did not show obvious fracture dislocation reviewed by me, official report is pending. Patient does have some effusion. Placed in knee immobilizer, pain medication and outpatient Ortho follow-up. Does not have any tenderness in both hips or left knee. Do not think needs any other imaging. Discussed signs symptoms of worsening needing return to ER which she seems understanding. Counseled pt/family regarding: diagnosis, need for follow-up, rad results - Departure Departure Disposition: Home Clinical Impression: Left knee sprain Qualifiers: Encounter type: initial encounter Involved ligament of knee: unspecified ligament Qualified Code(s): S83.92XA - Sprain of unspecified site of left knee, initial encounter Condition: Stable Critical Care Time: No Referrals: ZAYNAB SANCHEZ [Primary Care Provider] - Follow Up with PCP/3 days DELORES TAMAYO NP [NON-STAFF PHY W/O PRIVILEGES] - (Tomorrow for reevaluation) Instructions: Contusion (DC) Additional Instructions: No weightbearing until evaluated by orthopedic and follow their instructions. Take pain medications as needed. Return to ER for worsening pain/swelling etc. Use crutches for ambulation Prescriptions: Hydrocodone/Acetaminophen [[place] 7.5-325 Tablet] 1 each PO Q4-6HPRN PRN 3 Days #12 tablet MDD 4 PRN Reason: Pain
[2020-03-15 18:45] VITALS: BP 145/75; PULSE 84
--- NOTE | 2020-03-16 08:48 | XRAY ---
Indication: Pain and swelling following fall. Comparison: None 4 view left knee demonstrates nondepressed lateral tibial plateau fracture with hemarthrosis. Elsewhere minimal medial joint space narrowing, mild lateral patella tilting, scattered vascular calcifications, and medial vascular clips. Comment: Interpreting ER clinician does not report fracture. Telephone report given to Dr. Mejia in the ER at 0841 hrs. on March 16, 2020.
[2020-03-17 16:40] VITALS: O2SAT 96
== END 2020-03-15 18:58 | disposition home or self-care (01) ==
LOC: ED 17:01
DX: M25.562 Pain in left knee (principal); S83.92XA Sprain of unspecified site of left knee, initial encounter; I10 Essential (primary) hypertension; Z79.899 Other long term (current) drug therapy; W18.31XA Fall on same level due to stepping on an object, initial encounter
CPT/HCPCS: 73564; 99284; L1830; A9270-GY

== ENCOUNTER 2021-03-20 02:30 | Emergency (ER) | payer MEDICARE, OTHER ==
--- NOTE | 2021-03-20 03:25 | ERPHSYRPT ---
- History of Present Illness Time Seen by Provider: 03/20/21 02:50 Source: patient Exam Limitations: no limitations Patient Subjective Stated Complaint: "My blood pressure is running high." Triage Nursing Assessment: Patient that she felt her blood pressure was high. Denied having any headache, dizziness, visual/auditory disturbances. reported an isolated episode of dyspnea that self resolved. Denied chest pain yet reported left shoulder pain last roughly 2 - 3 min. Pain was described as a discomfort and non-radiating. She denied any palpitations. Reported that she "feels" her BP increasing by feeling more anxious. Has Hx of HTN, triple bypass, DM type II. Pupils 3mm bilateral. Neck supple without JVD, bruits/thrills. Symmetrical chest expanion. heart tones S1/S2 RRR without extra sounds. lungs vesicular with adequate airflow and not adventitious sounds. Peripheral pulses +3 bilateral. No noted dependent edema. Pt has a well healed surgical scar over the sternum. Physician History: The patient is a 65-year-old female with a past medical significant for hypertension, anxiety and reported angina presents with a chief complaint of hypertension. Of note, the patient states that she has felt like her blood pressure has been going up since [place] . She reportedly fell asleep in a recliner and woke up and felt that her blood pressure was "high" and got a reading of 160 systolic. She then continued to check her blood pressure repeatedly every 10 minutes and she reported that her readings became higher and higher to the point where was 170 systolic over 100 diastolic. She stated that she took an extra metoprolol for her blood pressure tonight before falling asleep in her recliner. She states she was normally on metoprolol twice a day with 1 pill in the morning and 2 at night and this recently was cut down to 1 pill in the morning and 1 at night. She then decided to take a nitroglycerin because she figured it would make her vessels "dilated" although she did not have chest pain or any shortness of breath at that time. She also took 2 baby aspirin's. She did not decided to come to the emergency department to be evaluated and upon being triaged she often mentioned pain in her left shoulder that lasted briefly before it resolved spontaneously. She does have a history of anxiety and takes Klonopin as needed. She states that when she takes Klonopin this will usually lower her blood pressu re but she did not take any tonight. Her manager financial systems manages her blood pressure and she has a follow-up appointment on April 06, 2021. Allergies/Adverse Reactions: adhesive tape Allergy (Verified 03/20/21 02:42) Rash Home Medications: Levothyroxine Sodium [Euthyrox] 50 mcg PO DAILY 10/07/19 [History] clonazePAM [Clonazepam] 0.5 mg PO BIDPRN PRN 10/07/19 [History] Atorvastatin Calcium [Lipitor 40Mg] 40 mg PO DAILY 03/15/20 [History] Clopidogrel Bisulfate 75 mg [PLAVIX 75 MG Tablet] 75 mg PO DAILY 03/15/20 [History] Furosemide 20 mg [Lasix 20 mg] 20 mg PO BID 03/15/20 [History] Metoprolol Tartrate 25 mg [Lopressor 25MG Tab] 25 mg PO BID 03/15/20 [History] Potassium Chloride 10 Meq Tab* [Klor Con 10 MEQ] 10 meq PO BID 03/15/20 [History] Budesonide/Formoterol Fumarate [Budesonide-Formoterol 160-4.5] 1 puff IH DAILY 03/20/21 [History] Nitroglycerin 1 tab SL DAILY PRN 03/20/21 [History] glyBURIDE [Glyburide] 7.5 mg PO DAILY 03/20/21 [History] Hx Tetanus, Diphtheria Vaccination/Date Given: No Hx Influenza Vaccination/Date Given: Yes Travel Risk - International Travel Have you traveled outside of the country in past 3 weeks: No - Coronavirus Screening Are you exhibiting any of the following symptoms?: No Close contact with a COVID-19 positive Pt in past 14-21 Days: No - Vaccine Status Have you recieved a Covid-19 vaccination: No - Review of Systems Constitutional: No Fever, No Chills Cardiac: Chest Pain, Other (HTN) Abdominal/Gastrointestinal: No Abdominal Pain, No Nausea, No Vomiting Skin: No Symptoms Psychological: No Symptoms All Other Systems: Reviewed and Negative - Past Medical History Pertinent Past Medical History: Yes ENT History: Cataracts Cardiac History: Angina, Coronary Artery Disease, Hypertension Respiratory History: Bronchitis, Pneumonia Endocrine Medical History: Diabetes Type II, Hypothyroidism Musculoskeletal History: Fractures GI Medical History: No Pertinent History History: No Pertinent History Psycho-Social History: Anxiety Female Reproductive Disorders: No Pertinent History - Past Surgical History Past Surgical History: Yes Neuro Surgical History: No Pertinent History Cardiac: CABG Respiratory: No Pertinent History Gastrointestinal: No Pertinent History Genitourinary: No Pertinent History Musculoskeletal: No Pertinent History Female Surgical History: Hysterectomy, Tubal Ligation Other Surgical History: cyst removed from neck, heel supr, bladder extension, carpal tunnel - Social History Smoking Status: Never smoker Exposure to second hand smoke: Yes Drug Use: none Patient Lives Alone: No - Female History Hx Now: No - Nursing Vital Signs Nursing Vital Signs: Initial Vital Signs Temperature 97.2 F 03/20/21 02:30 Pulse Rate 77 03/20/21 02:30 Respiratory Rate 18 03/20/21 02:30 Blood Pressure 172/95 03/20/21 02:30 O2 Sat by Pulse Oximetry 96 03/20/21 02:30 Pain Scale Pain Intensity 0 - Physical Exam General Appearance: no apparent distress, alert Eye Exam: PERRL/EOMI, No scleral icterus Neck Exam: normal inspection Respiratory Exam: normal breath sounds, lungs clear, No chest tenderness, No respiratory distress Cardiovascular Exam: regular rate/rhythm, normal heart sounds, No murmur, No friction rub, No gallop, No capillary refill <2 sec, No edema Gastrointestinal/Abdomen Exam: soft, other (No pulsating mass palpated), No tenderness Extremity Exam: normal inspection, other (No asymmetric lower extremity swelling, calf tenderness or erythema to suggest DVT.), No pedal edema, No tenderness Neurologic Exam: alert, oriented x 3, cooperative Skin Exam: normal color, warm, dry, No rash SpO2 Interpretation: normal SpO2: 96 O2 Delivery: Room Air - Course Nursing assessment & vital signs reviewed: Yes EKG Interpreted by Me: RATE, NORMAL AXIS, NORMAL INTERVALS, NORMAL QRS, Non- specific ST Changes, Other (Nonspecific T wave abnormalities noted in V2 V3. Her EKG appears similar to an EKG dated September 2019.) - Radiology Exams Chest X-ray Interpretation: Interpreted by me, Reviewed by me, Other (No acute cardiopulmonary process. Chest x-ray appears similar to a chest x-ray obtained in December 2020. Sternotomy wires are intact there may be some scarring or atelectasis noted to the left lower lobe.) Ordered Tests: Active Orders 24 hr Category Date Time Status Horseradish Maker STAT Care 03/20/21 03:13 Active EKG-ER Only STAT Care 03/20/21 03:12 Active Pulse Oximetry (ED) STAT Care 03/20/21 03:12 Active CHEST 2 VIEWS (PA AND LAT) Stat Exams 03/20/21 03:13 Ordered BMP Stat Lab 03/20/21 03:12 Ordered CBC W DIFF Stat Lab 03/20/21 03:12 Ordered TROPONIN Stat Lab 03/20/21 03:12 Ordered Lab/Rad Data: Laboratory Result Diagrams 03/20/21 03:16 03/20/21 03:16 Laboratory Results 03/20/21 03/20/21 Range/Units 03:16 03:16 WBC 4.7 (4.0-10.5) K/mm3 RBC 4.67 (4.1-5.4) M/mm3 Hgb 14.6 (12.0-16.0) gm/dl Hct 44.5 (35-47) % MCV 95.3 (78-100) fl MCH 31.3 (26-32) pg MCHC 32.8 (32-36) g/dl RDW 13.3 (11.5-14.0) % Plt Count 200 (150-450) K/mm3 MPV 10.3 (7.5-11.0) fl Gran % 57.2 (36.0-66.0) % Eos # (Auto) 0.24 (0-0.5) Absolute Lymphs (auto) 1.28 (1.0-4.6) Absolute Monos (auto) 0.46 (0.0-1.3) Lymphocytes % 27.4 (24.0-44.0) % Monocytes % 9.9 (0.0-12.0) % Eosinophils % 5.1 H (0.00-5.0) % Basophils % 0.4 (0.0-0.4) % Absolute Granulocytes 2.67 (1.4-6.9) Basophils # 0.02 (0-0.4) Sodium 134 L (137-145) mmol/L Potassium 4.1 (3.5-5.1) mmol/L Chloride 100 (98-107) mmol/L Carbon Dioxide 25 (22-30) mmol/L Anion Gap 13.0 (5-15) MEQ/L BUN 14 (7-17) mg/dL Creatinine 0.42 L (0.52-1.04) mg/dL Estimated GFR > 60.0 ML/MIN Glucose 357 H (74-106) mg/dL Calcium 10.0 (8.4-10.2) mg/dL Troponin I < 0.012 (0.000-0.034) ng/mL - Progress Progress: unchanged Progress Note: 03/20/21 03:51 Nontoxic appearance. The patient presents with hypertension but seems to be relatively asymptomatic from that standpoint. I do believe the patient is somewhat anxious and a likely escalation in her blood pressure was due to her multiple blood pressure checks further increase in her anxiety causing her blood pressure to increase. Her blood pressure is in the 150s systolic here in the emergency department and she is currently asymptomatic from that at this standpoint. There is a brief episode of left shoulder pain or chest pressure does not seem to be ACS in origin. Her EKG appears to be unchanged from an EKG obtained in September 2019 and her cardiac markers are negative. Chest x-ray showed no evidence of pneumonia, pneumothorax and no new pleural effusion and seems to be unchanged from an x-ray obtained in December 2020. She was noted to have hyperglycemia on her work-up and was noted to be hyperglycemic during her last ED visit in the specifically. This is likely secondary to medication noncompliance and or dietary indiscretion. There is no evidence of metabolic acidosis and I believe this can be followed up and treated as an outpatient by her PCP. In terms of her blood pressure, she does not seem to be suffering from an acute hypertensive emergency. She has no headache or any neuro deficits and therefore neurocranial imaging was deferred. It also appears she had an abdominal ultrasound performed roughly 2 years ago that was negative for AAA and there is no pulsating mass noted on her exam tonight. Ultimately, I believe the patient can be discharged home and is safe to be discharged home to follow- up with her manager financial systems and/or PCP for further evaluation and management of her blood pressure. 03/20/21 03:53 The patient's blood pressure at the time of discharge was 142/91 mmHg without any intervention provided here in the emergency department. Counseled pt/family regarding: lab results, diagnosis, need for follow-up, rad results - Departure Departure Disposition: Home Clinical Impression: Hypertension, Atypical chest pain, Anxiety, Hyperglycemia Condition: Stable Critical Care Time: No Referrals: ZAYNAB SANCHEZ [Primary Care Provider] - Follow up/PCP as directed Instructions: High Blood Pressure (DC), Hyperglycemia, Adult (DC), Chest Pain That Is Not Caused by the Heart (DC) Additional Instructions: Please call your manager financial systems to arrange follow-up sooner if able to do so to have your blood pressure rechecked and managed as an outpatient. Please check your glucose daily and take your medications pertaining to your hyperglycemia and diabetes as prescribed and maintain a diet low in fat and carbohydrates.
[2021-03-20 03:37] LABS: Absolute Neutrophil Ct (ANC) 2.67 (1.4-6.9); Basophil (Absolute #) 0.02 (0-0.4); Eosinophil % 5.1 % (0.00-5.0); Eosinophil (Absolute #) 0.24 (0-0.5); Hematocrit 44.5 % (35-47); Hemoglobin 14.6 gm/dl (12.0-16.0); Lymphocyte (Absolute #) 1.28 (1.0-4.6); Lymphocytes % 27.4 % (24.0-44.0); Mean Cell Volume 95.3 fl (78-100); Mean Corpuscular Hemoglobin 31.3 pg (26-32); Mean Corpuscular Hgb Concent. 32.8 g/dl (32-36); Mean Platelet Volume 10.3 fl (7.5-11.0); Monocyte (Absolute #) 0.46 (0.0-1.3); Monocytes % 9.9 % (0.0-12.0); Neutrophil % 57.2 % (36.0-66.0); Platelet Count 200 K/mm3 (150-450); Red Blood Count 4.67 M/mm3 (4.1-5.4); Red Cell Distribution Width 13.3 % (11.5-14.0); White Blood Count 4.7 K/mm3 (4.0-10.5)
[2021-03-20 03:38] LABS: BLOOD UREA NITROGEN 14 mg/dL (7-17); CHLORIDE 100 mmol/L (98-107); Carbon Dioxide 25 mmol/L (22-30); Creatinine 1 0.42 mg/dL (0.52-1.04); EST GLOMERULAR FILTRATION RATE > 60.0 ML/MIN; Glucose 357 mg/dL (74-106); Potassium 4.1 mmol/L (3.5-5.1); SODIUM 134 mmol/L (137-145); TROPONIN < 0.012 ng/mL (0.000-0.034)
[2021-03-20 03:54] VITALS: PULSE 75
[2021-03-20 04:17] VITALS: BP 131/79; O2SAT 95
--- NOTE | 2021-03-20 08:37 | XRAY ---
Indication: Chest pain. Elevated blood pressure. Comparison: January 02, 2021. PA/lateral chest unchanged again demonstrating left lung subsegmental atelectasis/scarring and CABG surgery. Remaining heart and lungs unremarkable. Bony thorax intact again with mild osteopenia and degenerative changes. No new/acute findings.
== END 2021-03-20 04:16 | disposition home or self-care (01) ==
LOC: ED 02:30
DX: I10 Essential (primary) hypertension (principal); R07.89 Other chest pain; F41.9 Anxiety disorder, unspecified; E11.65 Type 2 diabetes mellitus with hyperglycemia; Z79.84 Long term (current) use of oral hypoglycemic drugs; I25.119 Atherosclerotic heart disease of native coronary artery with unspecified angina pectoris; Z95.1 Presence of aortocoronary bypass graft; Z79.01 Long term (current) use of anticoagulants; Z79.899 Other long term (current) drug therapy
CPT/HCPCS: 36415; 71046; 80048; 84484; 85025; 93005; 93041; 94760; 99284

== ENCOUNTER 2021-07-27 22:00 | Emergency (ER) | payer MEDICARE ==
[2021-07-27] MEDS ORDERED: Sodium Chloride 0.9% 1000 ML 1,000 ML IV STA (22:49)
[2021-07-27] MEDS ORDERED: Pepcid 20 MG VIAL IV ONE ×2 (22:49→23:03)
[2021-07-27] MEDS ORDERED: Zofran 4 MG/2 ML VIAL IV ONE (22:49)
[2021-07-27] MEDS ORDERED: Sodium Chloride 0.9% 1000 ML 1,000 ML ONE (23:03)
[2021-07-27] MEDS ORDERED: Zofran 4 MG/2 ML VIAL ONE (23:03)
[2021-07-27 23:06] LABS: Absolute Neutrophil Ct (ANC) 8.08 (1.4-6.9); Basophil (Absolute #) 0.01 (0-0.4); Eosinophil % 1.9 % (0.00-5.0); Eosinophil (Absolute #) 0.19 (0-0.5); Hematocrit 45.6 % (35-47); Hemoglobin 15.1 gm/dl (12.0-16.0); Lymphocyte (Absolute #) 0.95 (1.0-4.6); Lymphocytes % 9.6 % (24.0-44.0); Mean Cell Volume 94.2 fl (78-100); Mean Corpuscular Hemoglobin 31.2 pg (26-32); Mean Corpuscular Hgb Concent. 33.1 g/dl (32-36); Mean Platelet Volume 10.3 fl (7.5-11.0); Monocyte (Absolute #) 0.65 (0.0-1.3); Monocytes % 6.6 % (0.0-12.0); Neutrophil % 81.8 % (36.0-66.0); Platelet Count 222 K/mm3 (150-450); Red Blood Count 4.84 M/mm3 (4.1-5.4); Red Cell Distribution Width 13.7 % (11.5-14.0); White Blood Count 9.9 K/mm3 (4.0-10.5)
[2021-07-27 23:19] LABS: ALBUMIN 4.6 g/dL (3.5-5.0); ALKALINE PHOSPHATASE 88 U/L (38-126); ANION GAP 17.2 MEQ/L (5-15); BLOOD UREA NITROGEN 18 mg/dL (7-17); CHLORIDE 104 mmol/L (98-107); Calcium 9.6 mg/dL (8.4-10.2); Carbon Dioxide 22 mmol/L (22-30); Creatinine 1 0.42 mg/dL (0.52-1.04); EST GLOMERULAR FILTRATION RATE > 60.0 ML/MIN; Glucose 181 mg/dL (74-106); LIPASE 196 U/L (23-300); Potassium 3.9 mmol/L (3.5-5.1); SGOT/AST 32 U/L (14-36); SGPT/ALT 28 U/L (0-35); SODIUM 139 mmol/L (137-145); Total Protein 7.1 g/dL (6.3-8.2)
[2021-07-27 23:28] LABS: Appearance CLEAR (CLEAR); Bilirubin NEGATIVE (NEGATIVE); Dipstick done @ ? MAIN LAB; Glucose NEGATIVE (NEGATIVE); Ketones NEGATIVE (NEGATIVE); Nitrite NEGATIVE (NEGATIVE); Ph 5.5 (5-6); Protein,Urine Dip TRACE (Negative); RBC NEGATIVE Ery/ul (0-5); Specific Gravity 1.025 (1.005-1.025); Urobilinogen 0.2 mg/dL (0-1)
--- NOTE | 2021-07-27 23:32 | ERPHSYRPT ---
- History of Present Illness Time Seen by Provider: 07/27/21 22:17 Historian: patient Exam Limitations: no limitations Patient Subjective Stated Complaint: pt state "My stomach started to feel upset. 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 After I vomited my stomach began to bloat." Triage Nursing Assessment: pt ambulated into the er; pt is axo x4; c/o one episode of emesis; pt c/o bloating to abd; pt denies diarrhea; pt states discomfort to epigastric region; hyperactive bowel sounds in all quads; mucus membrane pink and moist; abd is distended, soft, nontender; vitals wnl Physician History: 65-year-old female with history of hypertension, hyperlipidemia, anxiety, hypothyroidism presented in the ER with chief complaint of sudden onset upper abdominal bloating sensation/discomfort with associated nausea and an episode of nonprojectile, nonbilious vomiting without hematemesis. Denies any chest pain palpitations or shortness of breath. Also complaining of some generalized abdominal cramping 2. No diarrhea. Timing/Duration: hour(s) (1), sudden, improved Activities at Onset: rest Quality: dullness, fullness Abdominal Pain Onset Location: epigastric Pain Radiation: no radiation Severity of Pain-Max: moderate Severity of Pain-Current: mild Modifying Factors: Improves With: vomiting Associated Symptoms: nausea, vomiting Previous symptoms: no prior history Allergies/Adverse Reactions: adhesive tape Allergy (Verified 07/27/21 22:21) Rash Home Medications: Levothyroxine Sodium [Euthyrox] 50 mcg PO DAILY 10/07/19 [History] clonazePAM [Clonazepam] 0.5 mg PO BIDPRN PRN 10/07/19 [History] Atorvastatin Calcium [Lipitor 40Mg] 40 mg PO DAILY 03/15/20 [History] Clopidogrel Bisulfate 75 mg [PLAVIX 75 MG Tablet] 75 mg PO DAILY 03/15/20 [History] Furosemide 20 mg [Lasix 20 mg] 20 mg PO BID 03/15/20 [History] Metoprolol Tartrate 25 mg [Lopressor 25MG Tab] 25 mg PO BID 03/15/20 [History] Potassium Chloride 10 Meq Tab* [Klor Con 10 MEQ] 10 meq PO BID 03/15/20 [History] Budesonide/Formoterol Fumarate [Budesonide-Formoterol 160-4.5] 1 puff IH DAILY 03/20/21 [History] Nitroglycerin 1 tab SL DAILY PRN 03/20/21 [History] glyBURIDE [Glyburide] 7.5 mg PO DAILY 03/20/21 [History] Hx Tetanus, Diphtheria Vaccination/Date Given: No (unknown) Hx Influenza Vaccination/Date Given: Yes Hx Pneumococcal Vaccination/Date Given: Yes Travel Risk - International Travel Have you traveled outside of the country in past 3 weeks: No - Coronavirus Screening Are you exhibiting any of the following symptoms?: Yes Symptoms: Vomiting/Diarrhea Close contact with a COVID-19 positive Pt in past 14-21 Days: No - Vaccine Status Have you recieved a Covid-19 vaccination: No - Review of Systems Constitutional: No Symptoms Eyes: No Symptoms Ears, Nose, & Throat: No Symptoms Respiratory: No Symptoms Cardiac: No Symptoms Abdominal/Gastrointestinal: Abdominal Pain, Nausea, Vomiting Genitourinary Symptoms: No Symptoms Musculoskeletal: No Symptoms Skin: No Symptoms Neurological: No Symptoms Psychological: No Symptoms Endocrine: No Symptoms Hematologic/Lymphatic: No Symptoms Immunological/Allergic: No Symptoms - Past Medical History Pertinent Past Medical History: Yes ENT History: Cataracts Cardiac History: Angina, Coronary Artery Disease, Hypertension Respiratory History: Bronchitis, Pneumonia Endocrine Medical History: Diabetes Type II, Hypothyroidism Musculoskeletal History: Fractures GI Medical History: No Pertinent History History: No Pertinent History Psycho-Social History: Anxiety Female Reproductive Disorders: No Pertinent History - Past Surgical History Past Surgical History: Yes Neuro Surgical History: No Pertinent History Cardiac: CABG Respiratory: No Pertinent History Gastrointestinal: No Pertinent History Genitourinary: No Pertinent History Musculoskeletal: No Pertinent History Female Surgical History: Hysterectomy, Tubal Ligation Other Surgical History: cyst removed from neck, heel supr, bladder extension, c arpal tunnel - Social History Smoking Status: Never smoker Exposure to second hand smoke: Yes Drug Use: none Patient Lives Alone: No - Nursing Vital Signs Nursing Vital Signs: Initial Vital Signs Temperature 98.2 F 07/27/21 22:22 Pulse Rate 95 H 07/27/21 22:22 Respiratory Rate 22 07/27/21 22:22 Blood Pressure 137/69 07/27/21 22:22 O2 Sat by Pulse Oximetry 95 07/27/21 22:22 Pain Scale Pain Intensity 2 - Physical Exam General Appearance: no apparent distress, alert Eye Exam: PERRL/EOMI, eyes nml inspection Ears, Nose, Throat Exam: normal ENT inspection, pharynx normal Neck Exam: normal inspection, non-tender, supple, full range of motion Respiratory Exam: normal breath sounds, lungs clear Cardiovascular Exam: regular rate/rhythm, normal heart sounds Gastrointestinal/Abdomen Exam: soft, normal bowel sounds, tenderness (Upper abdomen) Back Exam: normal inspection, normal range of motion Extremity Exam: normal inspection, normal range of motion Neurologic Exam: alert, oriented x 3, cooperative Skin Exam: normal color, warm SpO2 Interpretation: normal SpO2: 95 O2 Delivery: Room Air - Course EKG Interpreted by Me: RATE (93), Sinus Rhythm, NORMAL AXIS, NORMAL INTERVALS, Non-specific ST Changes Ordered Tests: Active Orders 24 hr Category Date Time Status EKG-ER Only STAT Care 07/27/21 22:49 Active IV Insertion STAT Care 07/27/21 22:49 Active ABDOMEN AND PELVIS W/0 CONTRAS [CT] Stat Exams 07/27/21 23:04 Taken CBC W DIFF Stat Lab 07/27/21 23:00 Completed CMP Stat Lab 07/27/21 23:00 Completed LIPASE Stat Lab 07/27/21 23:00 Completed TROPONIN Q3H Lab 07/27/21 23:00 Completed TROPONIN Q3H Lab 07/28/21 02:00 Ordered TROPONIN Q3H Lab 07/28/21 05:00 Ordered TROPONIN Q3H Lab 07/28/21 08:00 Ordered TROPONIN Q3H Lab 07/28/21 11:00 Ordered UA W/RFX CULTURE Stat Lab 07/27/21 22:54 Completed Medication Summary Discontinued Medications Generic Name Dose Route Start Last Admin Trade Name Freq PRN Reason Stop Dose Admin Famotidine 20 mg 07/27/21 22:49 07/27/21 23:04 Famotidine 20 Mg/1 Vial IV 07/27/21 22:50 20 mg STAT ONE Administration Famotidine Confirm 07/27/21 23:03 Famotidine 20 Mg/1 Vial Administered 07/27/21 23:04 Dose 20 mg IV .STK-MED ONE Sodium Chloride 1,000 mls @ 999 mls/hr 07/27/21 22:49 07/28/21 00:19 Sodium Chloride 0.9% 1000 Ml IV 07/27/21 23:49 Infused .Q1H1M STA Infusion Sodium Chloride Confirm 07/27/21 23:03 Sodium Chloride 0.9% 1000 Ml Administered 07/27/21 23:04 Dose 1,000 mls @ ud .ROUTE .STK-MED ONE Ondansetron HCl 4 mg 07/27/21 22:49 07/27/21 23:03 Ondansetron Hcl 4 Mg/2 Ml Vial IV 07/27/21 22:50 4 mg STAT ONE Administration Ondansetron HCl Confirm 07/27/21 23:03 Ondansetron Hcl 4 Mg/2 Ml Vial Administered 07/27/21 23:04 Dose 4 mg .ROUTE .STK-MED ONE Lab/Rad Data: Laboratory Result Diagrams 07/27/21 23:00 07/27/21 23:00 Laboratory Results 07/27/21 07/27/21 07/27/21 Range/Units 23:00 23:00 23:00 WBC 9.9 (4.0-10.5) K/mm3 RBC 4.84 (4.1-5.4) M/mm3 Hgb 15.1 (12.0-16.0) gm/dl Hct 45.6 (35-47) % MCV 94.2 (78-100) fl MCH 31.2 (26-32) pg MCHC 33.1 (32-36) g/dl RDW 13.7 (11.5-14.0) % Plt Count 222 (150-450) K/mm3 MPV 10.3 (7.5-11.0) fl Gran % 81.8 H (36.0-66.0) % Eos # (Auto) 0.19 (0-0.5) Absolute Lymphs (auto) 0.95 L (1.0-4.6) Absolute Monos (auto) 0.65 (0.0-1.3) Lymphocytes % 9.6 L (24.0-44.0) % Monocytes % 6.6 (0.0-12.0) % Eosinophils % 1.9 (0.00-5.0) % Basophils % 0.1 (0.0-0.4) % Absolute Granulocytes 8.08 H (1.4-6.9) Basophils # 0.01 (0-0.4) Sodium 139 (137-145) mmol/L Potassium 3.9 (3.5-5.1) mmol/L Chloride 104 (98-107) mmol/L Carbon Dioxide 22 (22-30) mmol/L Anion Gap 17.2 H (5-15) MEQ/L BUN 18 H (7-17) mg/dL Creatinine 0.42 L (0.52-1.04) mg/dL Estimated GFR > 60.0 ML/MIN Glucose 181 H (74-106) mg/dL Calcium 9.6 (8.4-10.2) mg/dL Total Bilirubin 0.70 (0.2-1.3) mg/dL AST 32 (14-36) U/L ALT 28 (0-35) U/L Alkaline Phosphatase 88 (38-126) U/L Troponin I < 0.012 (0.000-0.034) ng/mL Serum Total Protein 7.1 (6.3-8.2) g/dL Albumin 4.6 (3.5-5.0) g/dL Lipase 196 (23-300) U/L Urinalys Dipstick Clnc Urine Color (YELLOW) Urine Appearance (CLEAR) Urine pH (5-6) Ur Specific [place] (1.005-1.025) POC Urine Protein Conf (Negative) Urine Ketones (NEGATIVE) Urine Nitrite (NEGATIVE) Urine Bilirubin (NEGATIVE) Urine Urobilinogen (0-1) mg/dL Urine Leukocytes (NEGATIVE) Urine WBC (Auto) (0-5) /HPF Urine RBC (Auto) (0-2) /HPF U Epithel Cells (Auto) (FEW) /HPF Urine Bacteria (Auto) (NEGATIVE) /HPF Urine RBC (0-5) Diogo/ul Urine Mucus (Auto) (NEGATIVE) /HPF Ur Culture Indicated? Urine Glucose (NEGATIVE) mg/dL 07/27/21 Range/Units 22:54 WBC (4.0-10.5) K/mm3 RBC (4.1-5.4) M/mm3 Hgb (12.0-16.0) gm/dl Hct (35-47) % MCV (78-100) fl MCH (26-32) pg MCHC (32-36) g/dl RDW (11.5-14.0) % Plt Count (150-450) K/mm3 MPV (7.5-11.0) fl Gran % (36.0-66.0) % Eos # (Auto) (0-0.5) Absolute Lymphs (auto) (1.0-4.6) Absolute Monos (auto) (0.0-1.3) Lymphocytes % (24.0-44.0) % Monocytes % (0.0-12.0) % Eosinophils % (0.00-5.0) % Basophils % (0.0-0.4) % Absolute Granulocytes (1.4-6.9) Basophils # (0-0.4) Sodium (137-145) mmol/L Potassium (3.5-5.1) mmol/L Chloride (98-107) mmol/L Carbon Dioxide (22-30) mmol/L Anion Gap (5-15) MEQ/L BUN (7-17) mg/dL Creatinine (0.52-1.04) mg/dL Estimated GFR ML/MIN Glucose (74-106) mg/dL Calcium (8.4-10.2) mg/dL Total Bilirubin (0.2-1.3) mg/dL AST (14-36) U/L ALT (0-35) U/L Alkaline Phosphatase (38-126) U/L Troponin I (0.000-0.034) ng/mL Serum Total Protein (6.3-8.2) g/dL Albumin (3.5-5.0) g/dL Lipase (23-300) U/L Urinalys Dipstick Clnc MAIN LAB Urine Color YELLOW (YELLOW) Urine Appearance CLEAR (CLEAR) Urine pH 5.5 (5-6) Ur Specific [place] 1.025 (1.005-1.025) POC Urine Protein Conf TRACE (Negative) Urine Ketones NEGATIVE (NEGATIVE) Urine Nitrite NEGATIVE (NEGATIVE) Urine Bilirubin NEGATIVE (NEGATIVE) Urine Urobilinogen 0.2 (0-1) mg/dL Urine Leukocytes NEGATIVE (NEGATIVE) Urine WBC (Auto) 0-2 (0-5) /HPF Urine RBC (Auto) NONE (0-2) /HPF U Epithel Cells (Auto) RARE (FEW) /HPF Urine Bacteria (Auto) NONE (NEGATIVE) /HPF Urine RBC NEGATIVE (0-5) Diogo/ul Urine Mucus (Auto) SLIGHT (NEGATIVE) /HPF Ur Culture Indicated? NO Urine Glucose NEGATIVE (NEGATIVE) mg/dL - Progress Progress: improved Progress Note: 07/28/21 00:26 65-year-old is evaluated for nausea vomiting with abdominal pain. Given fluids and Zofran, feeling improved on reevaluation with minimal nausea but no abdominal pain. Normal white count, chemistry showed some element of dehydration, no UTI. CT abdomen pelvis without contrast is negative. symptoms seems to be viral etiology, discussed signs symptoms of worsening needing return to ER which she seems understanding. Counseled pt/family regarding: lab results, diagnosis, need for follow-up, rad results - Departure Departure Disposition: Home Clinical Impression: Upper abdominal pain, Nausea and vomiting Condition: Stable Critical Care Time: No Referrals: ZAYNAB SANCHEZ [Primary Care Provider] - Follow up/PCP as directed (1-2 days for reevaluation) Instructions: Nausea and Vomiting, Adult (DC), Acute Abdomen (Belly Pain), Adult (DC) Additional Instructions: Drink plenty of fluids. Take Tylenol/Zofran as needed. Follow-up with primary care for reevaluation. Return to ER for worsening abdominal pain, nausea vomiting etc. Prescriptions: Ondansetron ODT 4 MG [Zofran Odt 4 mg] 1 ea PO QIDPRN PRN #7 tablet PRN Reason: n/v
[2021-07-27 23:35] LABS: Epithelial Cells RARE /HPF (FEW); Mucus SLIGHT /HPF (NEGATIVE); WBC 0-2 /HPF (0-5)
[2021-07-27 23:37] LABS: Urine Cultured Indicated? NO
[2021-07-28 00:29] VITALS: O2SAT 95
[2021-07-28 00:38] VITALS: BP 125/61; PULSE 94
[2021-07-28] MEDS ORDERED: ZOFRAN ODT 4 MG PO ONE (00:45)
[2021-07-28] MEDS ORDERED: ZOFRAN ODT 4 MG ONE (00:46)
--- NOTE | 2021-07-28 09:24 | XRAY ---
Indication: Upper abdomen pain. Nausea and vomiting. Multiple contiguous axial images obtained through the abdomen and pelvis without contrast. Comparison: None Lung bases demonstrates mild bibasilar subsegmental atelectasis/scarring. No infiltrate or effusion. Heart not enlarged. Small hiatal hernia. Stomach is distended with food/fluid. Noncontrasted stomach and bowel loops appear nonobstructed with normal appendix. Scattered colonic diverticulosis without diverticulitis greatest in descending colon. Mildly distended gallbladder without gallstones or biliary distention. No free fluid/air. Nonobstructing right renal punctate calculus. Previous hysterectomy. Remaining liver, gallbladder, pancreas, spleen, adrenal glands, kidneys, ureters, and bladder are unremarkable for noncontrast exam. Mild scattered aortoiliac calcifications without AAA. Osseous structures intact with minimal/mild degenerative changes throughout the thoracolumbar spine and both hips. Small fatty umbilical hernia. Impression: 1. Mild distended gallbladder without gallstones. Sonogram may yield further information if clinically warranted. 2. Incidental small hiatal hernia, colonic diverticulosis, nonobstructing right renal micro-calculi, arteriosclerotic disease, fatty umbilical hernia, and chronic bony findings. 3. Remaining CT abdomen/pelvis without contrast exam is negative. Comment: Preliminary interpretation made by [facility]. No critical discrepancy.
== END 2021-07-28 00:47 | disposition home or self-care (01) ==
LOC: ED 22:00
DX: R10.13 Epigastric pain (principal); R11.2 Nausea with vomiting, unspecified; I10 Essential (primary) hypertension; E78.5 Hyperlipidemia, unspecified; E11.9 Type 2 diabetes mellitus without complications; Z79.01 Long term (current) use of anticoagulants; Z79.899 Other long term (current) drug therapy
CPT/HCPCS: 36000; 36415; 74176; 80053; 81015; 83690; 84484; 85025; 93005; 96360; 96374; 96375; 99284; J2405; Q0162

== ENCOUNTER 2023-07-15 21:50 | Emergency (ER) | payer MEDICARE ==
[2023-07-15 22:00] VITALS: TEMP 97.6; O2SAT 93
--- NOTE | 2023-07-15 22:07 | ERPHSYRPT ---
- History of Present Illness Time Seen by Provider: 07/15/23 22:07 Source: patient Exam Limitations: no limitations Patient Subjective Stated Complaint: pt states she started feeling anxious and getting a heaviness sensation on the back of her neck. pt took her blood press ure at home at was 160 systolic Triage Nursing Assessment: pt ambulatory to bed by self with steady gait, pt alert and oriented x3, skin pwd, pt c/o htn at home, current bp during triage was 155/72, pt took 2 nitros and clonezapam before arrival, pt c/o /10 discomfort on the back of her neck, pt denies any chest pain, pt saw Dr. Abbasi on and sceduled a nuclear stress test for august Physician History: This is a 67-year-old obese white female patient who has a history of hypertension, diabetes, anxiety, coronary artery disease having had a CABG in the past, hypothyroidism, hyperlipidemia and is on Plavix and presents to the emergency department because of concern of high blood pressure. The patient's systolic blood pressure at home was 160 mmHg. She then took 0.5 mg of clonazepam followed by a single nitroglycerin sublingual tablet. She states that she has the same sensation when her blood pressure has been elevated in the past. That is, achiness in the posterior aspect of her neck. She waited 5 minutes, did not take her blood pressure again but did take a second nitroglycerin sublingually. She arrives to the emergency department with blood pressure reading of 155/72. The second reading shows a systolic blood pressure of 117. Patient denies chest pain. She has not had any visual changes and does not have a headache. Patient was seen by her family day care worker 4 days ago and she has a nuclear medicine stress test scheduled for August 2023. Timing/Duration: today Severity: mild Associated Symptoms: denies symptoms Allergies/Adverse Reactions: adhesive tape Allergy (Verified 07/15/23 21:52) Rash Home Medications: Levothyroxine Sodium [Euthyrox] 50 mcg PO DAILY 10/07/19 [History] clonazePAM [Clonazepam] 0.5 mg PO BIDPRN PRN 10/07/19 [History] Furosemide 20 mg [Lasix 20 mg] 20 mg PO UD 03/15/20 [History] Metoprolol Tartrate 25 mg [Lopressor 25MG Tab] 25 mg PO BID 03/15/20 [History] Potassium Chloride Tab* [Klor Con] 10 meq PO BID 03/15/20 [History] Budesonide/Formoterol Fumarate [Budesonide-Formoterol 160-4.5] 1 puff IH DAILY 03/20/21 [History] Ezetimibe 10 mg [Zetia 10 MG] 10 mg PO DAILY 08/28/22 [History] Atorvastatin Calcium [Lipitor 40Mg] 40 mg PO DAILY 10/04/22 [History] Glimepiride 4 mg PO DAILY 10/04/22 [History] Metformin HCl 850 mg [Glucophage 850 MG] 850 mg PO BID 10/04/22 [History] Hx Tetanus, Diphtheria Vaccination/Date Given: No (unknown) Hx Influenza Vaccination/Date Given: Yes Hx Pneumococcal Vaccination/Date Given: Yes Travel Risk - International Travel Have you traveled outside of the country in past 3 weeks: No - Emerging Infectious Disease Are you exhibiting symptoms associated with any current EIDs: No - Review of Systems Constitutional: No Symptoms Eyes: No Symptoms Ears, Nose, & Throat: No Symptoms Respiratory: No Symptoms Cardiac: No Symptoms Abdominal/Gastrointestinal: No Symptoms Genitourinary Symptoms: No Symptoms Musculoskeletal: No Symptoms Skin: No Symptoms Neurological: No Symptoms Psychological: No Symptoms Endocrine: No Symptoms Hematologic/Lymphatic: No Symptoms Immunological/Allergic: No Symptoms All Other Systems: Reviewed and Negative - Past Medical History Pertinent Past Medical History: Yes Neurological History: No Pertinent History ENT History: Cataracts Cardiac History: Angina, Coronary Artery Disease, Hypertension, Myocardial Infarction ([place]) Respiratory History: Bronchitis, Pneumonia Endocrine Medical History: Diabetes Type II, Hypothyroidism Musculoskeletal History: Fractures GI Medical History: No Pertinent History History: No Pertinent History Psycho-Social History: Anxiety Female Reproductive Disorders: No Pertinent History Other Medical History: hx of polyps,gerd - Past Surgical History Past Surgical History: Yes Neuro Surgical History: No Pertinent History Cardiac: CABG Respiratory: No Pertinent History Gastrointestinal: No Pertinent History Genitourinary: No Pertinent History Musculoskeletal: No Pertinent History Female Surgical History: Hysterectomy, Tubal Ligation Other Surgical History: cyst removed from neck, heel supr, bladder extension, carpal tunnel,EGD and colonoscopy - Social History Smoking Status: Never smoker Exposure to second hand smoke: Yes Drug Use: none Patient Lives Alone: No - Nursing Vital Signs Nursing Vital Signs: Initial Vital Signs Temperature 97.6 F 07/15/23 21:51 Pulse Rate 73 07/15/23 21:51 Respiratory Rate 18 07/15/23 21:51 Blood Pressure 155/72 07/15/23 21:51 O2 Sat by Pulse Oximetry 93 L 07/15/23 21:51 Pain Scale Pain Intensity 1 - Physical Exam General Appearance: no apparent distress, alert, anxiety, obese Eye Exam: PERRL/EOMI, eyes nml inspection Ears, Nose, Throat Exam: normal ENT inspection, moist mucous membranes Neck Exam: normal inspection, non-tender, supple, full range of motion Respiratory Exam: normal breath sounds, lungs clear, airway intact, No chest tenderness, No respiratory distress Cardiovascular Exam: regular rate/rhythm, normal heart sounds, normal peripheral pulses Gastrointestinal/Abdomen Exam: soft, normal bowel sounds, No tenderness Pelvic Exam: not done Rectal Exam: not done Back Exam: normal inspection, normal range of motion, No CVA tenderness, No v ertebral tenderness Extremity Exam: normal inspection, normal range of motion, pelvis stable Neurologic Exam: alert, oriented x 3, cooperative, saw feeder II-XII nml as tested, normal mood/affect, nml cerebellar function, nml station & gait, sensation nml Skin Exam: normal color, warm, dry Lymphatic Exam: adenopathy SpO2 Interpretation: borderline oxygenation SpO2: 93 O2 Delivery: Room Air - Course Nursing assessment & vital signs reviewed: Yes EKG Interpreted by Me: RATE (73), Sinus Rhythm, NORMAL AXIS, NORMAL INTERVALS, NORMAL QRS, NORMAL ST-T, Other (Acute ischemic changes on today's twelve-lead EKG.) Ordered Tests: Active Orders 24 hr Category Date Time Status EKG-ER Only STAT Care 07/15/23 22:31 Active Pulse Oximetry (ED) STAT Care 07/15/23 22:31 Active CBC W DIFF Stat Lab 07/15/23 22:35 Completed CMP Stat Lab 07/15/23 22:35 Completed CULTURE,URINE Stat Lab 07/15/23 22:45 Received MAGNESIUM Stat Lab 07/15/23 22:35 Completed TROPONIN Q4H Lab 07/15/23 22:35 Completed TROPONIN Q4H Lab 07/16/23 02:45 Ordered TROPONIN Q4H Lab 07/16/23 06:45 Ordered UA W/RFX UR CULTURE Stat Lab 07/15/23 22:45 Completed Lab/Rad Data: Laboratory Result Diagrams 07/15/23 22:35 07/15/23 22:35 Laboratory Results 07/15/23 07/15/23 07/15/23 Range/Units 22:45 22:35 22:35 WBC (4.0-10.5) x10^3/uL RBC (4.1-5.4) x10^6/uL Hgb (12.0-16.0) g/dL Hct (35-47) % MCV (78-100) fL MCH (26-32) pg MCHC (32-36) g/dL RDW (11.5-14.0) % Plt Count (150-450) x10^3/uL MPV (7.5-11.0) fL Gran % (36.0-66.0) % Immature Gran % (Auto) (0.00-0.4) % Nucleat RBC Rel Count (0.00-0.1) % Eos # (Auto) (0-0.5) x10^3/uL Immature Gran # (Auto) (0.00-0.03) x10^3u/L Absolute Lymphs (auto) (1.0-4.6) x10^3/uL Absolute Monos (auto) (0.0-1.3) x10^3/uL Absolute Nucleated RBC (0.00-0.01) x10^3u/L Lymphocytes % (24.0-44.0) % Monocytes % (0.0-12.0) % Eosinophils % (0.00-5.0) % Basophils % (0.0-0.4) % Absolute Granulocytes (1.4-6.9) x10^3/uL Basophils # (0-0.4) x10^3/uL Sodium 141 (135-145) mmol/L Potassium 3.9 (3.5-5.1) mmol/L Chloride 107 (98-107) mmol/L Carbon Dioxide 22 (22-30) mmol/L Anion Gap 16.1 H (5-15) MEQ/L BUN 20 H (7-17) mg/dL Creatinine 0.52 (0.52-1.04) mg/dL Estimated GFR 101.8 ML/MIN Glucose 134 H (74-106) mg/dL Calcium 9.8 (8.4-10.2) mg/dL Magnesium 1.8 (1.6-2.3) mg/dL Total Bilirubin 0.50 (0.2-1.3) mg/dL AST 30 (14-36) U/L ALT 29 (0-35) U/L Alkaline Phosphatase 81 (38-126) U/L Troponin I < 0.012 (0.000-0.033) ng/mL Serum Total Protein 7.3 (6.3-8.2) g/dL Albumin 4.3 (3.5-5.0) g/dL Urine Color Yellow (Yellow) Urine Appearance Clear (Clear) Urine pH 6.0 (4.6-8.0) Ur Specific [place] 1.020 (1.005-1.030) Urine Protein Negative (Negative) Urine Glucose (UA) Negative (Negative) mg/dL Urine Ketones Trace A (Negative) Urine Blood Negative (Negative) Urine Nitrite Negative (Negative) Urine Bilirubin Negative (Negative) Urine Urobilinogen 1.0 A (0.2) mg/dL Ur Leukocyte Esterase Moderate A (Negative) U Hyaline Cast (Auto) NONE SEEN (0-2) /LPF Urine Microscopic RBC 3-5 (0-5) /HPF Urine Microscopic WBC >100 A (0-5) /HPF Ur Epithelial Cells None Seen (None Seen) /HPF Urine Bacteria None Seen (None Seen) /HPF Urine Culture Reflexed YES (NO) 07/15/23 Range/Units 22:35 WBC 5.0 (4.0-10.5) x10^3/uL RBC 4.43 (4.1-5.4) x10^6/uL Hgb 13.9 (12.0-16.0) g/dL Hct 41.0 (35-47) % MCV 92.6 (78-100) fL MCH 31.4 (26-32) pg MCHC 33.9 (32-36) g/dL RDW 12.5 (11.5-14.0) % Plt Count 247 (150-450) x10^3/uL MPV 9.4 (7.5-11.0) fL Gran % 50.0 (36.0-66.0) % Immature Gran % (Auto) 0.2 (0.00-0.4) % Nucleat RBC Rel Count 0.0 (0.00-0.1) % Eos # (Auto) 0.16 (0-0.5) x10^3/uL Immature Gran # (Auto) 0.01 (0.00-0.03) x10^3u/L Absolute Lymphs (auto) 1.93 (1.0-4.6) x10^3/uL Absolute Monos (auto) 0.38 (0.0-1.3) x10^3/uL Absolute Nucleated RBC 0.00 (0.00-0.01) x10^3u/L Lymphocytes % 38.4 (24.0-44.0) % Monocytes % 7.6 (0.0-12.0) % Eosinophils % 3.2 (0.00-5.0) % Basophils % 0.6 (0.0-0.4) % Absolute Granulocytes 2.52 (1.4-6.9) x10^3/uL Basophils # 0.03 (0-0.4) x10^3/uL Sodium (135-145) mmol/L Potassium (3.5-5.1) mmol/L Chloride (98-107) mmol/L Carbon Dioxide (22-30) mmol/L Anion Gap (5-15) MEQ/L BUN (7-17) mg/dL Creatinine (0.52-1.04) mg/dL Estimated GFR ML/MIN Glucose (74-106) mg/dL Calcium (8.4-10.2) mg/dL Magnesium (1.6-2.3) mg/dL Total Bilirubin (0.2-1.3) mg/dL AST (14-36) U/L ALT (0-35) U/L Alkaline Phosphatase (38-126) U/L Troponin I (0.000-0.033) ng/mL Serum Total Protein (6.3-8.2) g/dL Albumin (3.5-5.0) g/dL Urine Color (Yellow) Urine Appearance (Clear) Urine pH (4.6-8.0) Ur Specific [place] (1.005-1.030) Urine Protein (Negative) Urine Glucose (UA) (Negative) mg/dL Urine Ketones (Negative) Urine Blood (Negative) Urine Nitrite (Negative) Urine Bilirubin (Negative) Urine Urobilinogen (0.2) mg/dL Ur Leukocyte Esterase (Negative) U Hyaline Cast (Auto) (0-2) /LPF Urine Microscopic RBC (0-5) /HPF Urine Microscopic WBC (0-5) /HPF Ur Epithelial Cells (None Seen) /HPF Urine Bacteria (None Seen) /HPF Urine Culture Reflexed (NO) - Progress Progress: improved, re-examined Progress Note: 07/15/23 22:38 My medical decision making and the assignment of moderate complexity to this patient's medical issue is based on review of the patient's past medical history, review of the patient's medication list, review the patient drug allergy list, history present illness and physical findings on examination. The workup in this patient includes CBC, CMP, magnesium level, troponin level, twelve-lead EKG and urinalysis. Differential diagnosis includes anxiety about health, electrolyte abnormalities, high blood pressure, urinary tract infection 07/15/23 23:19 I interpreted the patient's laboratory data results. The patient has a urinary tract infection. No other abnormal lab results to suggest any other acute or emergent medical issue. Counseled pt/family regarding: lab results, diagnosis, need for follow-up Medical Desision Making - Independent Historian Additional History obtained from: Family - Diagnostic Testing Diagnostic test were ordered, analyzed, and reviewed by me: Yes - Risk of complications The pt has a mod risk of morbidity or mortality based on: Need for prescription drug management - Departure Departure Disposition: Home Clinical Impression: Urinary tract infection Condition: Stable Critical Care Time: No Referrals: ZAYNAB SANCHEZ [Primary Care Provider] - Follow up/PCP as directed Additional Instructions: Drink plenty of fluids. Take your medications as prescribed. Call your primary care provider and family day care worker tomorrow, 07/16/2023, to make arrangements for follow-up appointment to be seen in the next 5 to 7 days. Prescriptions: Cefdinir 300 mg PO BID #14 cap
[2023-07-15 22:35] LABS: Absolute Neutrophil Ct (ANC) 2.52 x10^3/uL (1.4-6.9); BASOPHIL % 0.6 % (0.0-0.4); Basophil (Absolute #) 0.03 x10^3/uL (0-0.4); Eosinophil % 3.2 % (0.00-5.0); Eosinophil (Absolute #) 0.16 x10^3/uL (0-0.5); Hemoglobin 13.9 g/dL (12.0-16.0); IMMATURE GRAN # 0.01 x10^3u/L (0.00-0.03); IMMATURE GRAN % 0.2 % (0.00-0.4); Lymphocyte (Absolute #) 1.93 x10^3/uL (1.0-4.6); Lymphocytes % 38.4 % (24.0-44.0); Mean Cell Volume 92.6 fL (78-100); Mean Corpuscular Hemoglobin 31.4 pg (26-32); Mean Corpuscular Hgb Concent. 33.9 g/dL (32-36); Mean Platelet Volume 9.4 fL (7.5-11.0); Monocyte (Absolute #) 0.38 x10^3/uL (0.0-1.3); Monocytes % 7.6 % (0.0-12.0); Platelet Count 247 x10^3/uL (150-450); Red Blood Count 4.43 x10^6/uL (4.1-5.4); Red Cell Distribution Width 12.5 % (11.5-14.0)
[2023-07-15 22:42] LABS: ALBUMIN 4.3 g/dL (3.5-5.0); ANION GAP 16.1 MEQ/L (5-15); BILIRUBIN,TOTAL 0.5 mg/dL (0.2-1.3); Calcium 9.8 mg/dL (8.4-10.2); Creatinine 1 0.52 mg/dL (0.52-1.04); EST GLOMERULAR FILTRATION RATE 101.8 ML/MIN; MAGNESIUM 1.8 mg/dL (1.6-2.3); Potassium 3.9 mmol/L (3.5-5.1); Total Protein 7.3 g/dL (6.3-8.2)
[2023-07-15 22:55] LABS: Appearance Clear (Clear); Bacteria None Seen /HPF (None Seen); Bilirubin Negative (Negative); Blood Negative (Negative); Epithelial Cells None Seen /HPF (None Seen); Glucose, Urine Negative (Negative); Hyaline Casts NONE SEEN /LPF (0-2); Ketones Trace (Negative); Leukocyte Esterase Moderate (Negative); Nitrite Negative (Negative); Protein,Urine Dip Negative (Negative); WBC >100 /HPF (0-5)
[2023-07-15 22:56] LABS: ADD URINE CULTURE? YES (NO)
[2023-07-15] MEDS ORDERED: ROCEPHIN 1 GM / 100 ML NaCl 1 GM/100 ML IVPB IV ONE (23:24)
[2023-07-15] MEDS: ROCEPHIN 1 GM / 100 ML NaCl 1 GM/100 ML IVPB IV ONE (23:25)
[2023-07-16 00:07] VITALS: BP 120/67; PULSE 71; RESP 25
== END 2023-07-16 00:17 | disposition home or self-care (01) ==
LOC: ED 21:50
DX: N39.0 Urinary tract infection, site not specified (principal); M54.2 Cervicalgia; I10 Essential (primary) hypertension; E11.9 Type 2 diabetes mellitus without complications; E78.5 Hyperlipidemia, unspecified; Z79.84 Long term (current) use of oral hypoglycemic drugs; Z79.899 Other long term (current) drug therapy
CPT/HCPCS: 36000; 36415; 80053; 81001; 83735; 84484; 85025; 87077; 87086; 87186; 93005; 94760; 96365; 99284; J0696

== ENCOUNTER 2024-01-27 11:26 | Emergency (ER) | payer MEDICARE, OTHER ==
--- NOTE | 2024-01-27 11:28 | ERPHSYRPT ---
- History of Present Illness Time Seen by Provider: 01/27/24 11:27 Source: patient, family Exam Limitations: no limitations Physician History: This is a 68-year-old white female patient who arrives by private vehicle for evaluation of relatively sudden onset of bilateral flank pain which has now more localized in the left flank and left lower quadrant. The pain level is measured at 8 out of 10 and is described as sharp. She had 1 episode of emesis and associated 3 episodes of diarrhea. She does have a history of diverticulosis that was diagnosed on her most recent colonoscopy. She does not recall specifically if she has ever had diverticulitis. Patient has a history of hypothyroidism, anxiety, hypertension, hyperlipidemia, diabetes, bronchitis, coronary artery disease (CABG) and is taking Plavix.. Patient denies shortness of breath and she denies chest pain. Timing/Duration: today, other (No injury) Method of Injury: other (No injury) Quality: sharp Severity of Pain-Max: moderate Severity of Pain-Current: moderate Modifying Factors: Improves With: nothing Associated Symptoms: nausea, vomiting, No urinary incontinence, No problems urinating, No light-headedness, No dizziness, No numbness in legs/feet, No weakness Previous symptoms: no prior history Allergies/Adverse Reactions: adhesive tape Allergy (Verified 01/27/24 11:48) Rash Home Medications: Levothyroxine Sodium [Euthyrox] 50 mcg PO DAILY 10/07/19 [History] clonazePAM [Clonazepam] 0.5 mg PO BIDPRN PRN 10/07/19 [History] Furosemide 20 mg [Lasix 20 mg] 20 mg PO BID 03/15/20 [History] Metoprolol Tartrate 25 mg [Lopressor 25MG Tab] 25 mg PO BID 03/15/20 [History] Potassium Chloride Tab* [Klor Con] 10 meq PO BID 03/15/20 [History] Budesonide/Formoterol Fumarate [Budesonide-Formoterol 160-4.5] 1 puff IH DAILY 03/20/21 [History] Ezetimibe 10 mg [Zetia 10 MG] 10 mg PO DAILY 08/28/22 [History] Atorvastatin Calcium [Lipitor 40Mg] 40 mg PO DAILY 10/04/22 [History] Glimepiride 4 mg PO DAILY 10/04/22 [History] Metformin HCl 850 mg [Glucophage 850 MG] 850 mg PO BID 10/04/22 [History] Hx Tetanus, Diphtheria Vaccination/Date Given: No (unknown) Hx Influenza Vaccination/Date Given: Yes Hx Pneumococcal Vaccination/Date Given: Yes Travel Risk - International Travel Have you traveled outside of the country in past 3 weeks: No - Emerging Infectious Disease Are you exhibiting symptoms associated with any current EIDs: No - Review of Systems Constitutional: No Symptoms Eyes: No Symptoms Ears, Nose, & Throat: No Symptoms Respiratory: No Symptoms Cardiac: No Symptoms Abdominal/Gastrointestinal: Abdominal Pain (LLQ), Nausea, Vomiting, Diarrhea Genitourinary Symptoms: Flank Pain (Left) Musculoskeletal: No Symptoms Skin: No Symptoms Neurological: No Symptoms Psychological: No Symptoms Endocrine: No Symptoms Hematologic/Lymphatic: No Symptoms Immunological/Allergic: No Symptoms - Past Medical History Pertinent Past Medical History: Yes Neurological History: No Pertinent History ENT History: Cataracts Cardiac History: Angina, Coronary Artery Disease, Hypertension, Myocardial Infarction ([place]) Respiratory History: Bronchitis, Pneumonia Endocrine Medical History: Diabetes Type II, Hypothyroidism Musculoskeletal History: Fractures GI Medical History: No Pertinent History History: No Pertinent History Psycho-Social History: Anxiety Female Reproductive Disorders: No Pertinent History Other Medical History: hx of polyps,gerd - Past Surgical History Past Surgical History: Yes Neuro Surgical History: No Pertinent History Cardiac: CABG Respiratory: No Pertinent History Gastrointestinal: No Pertinent History Genitourinary: No Pertinent History Musculoskeletal: No Pertinent History Female Surgical History: Hysterectomy, Tubal Ligation Other Surgical History: cyst removed from neck, heel supr, bladder extension, carpal tunnel,EGD and colonoscopy - Social History Smoking Status: Never smoker Exposure to second hand smoke: Yes Drug Use: none Patient Lives Alone: No - Social Determinants of Health Will the patient participate in the screening: Yes Do you worry about a steady place to live?: No In the past 12 months,have you had to go without utilities?: No Transportation Issues: No Has anyone in your support network made you feel unsafe?: No Have you or anyone in your house had to go without enough: No - Nursing Vital Signs Nursing Vital Signs: Initial Vital Signs Temperature 97.4 F 01/27/24 11:40 Pulse Rate 60 01/27/24 11:40 Respiratory Rate 16 01/27/24 11:40 Blood Pressure 151/88 11/11/24 11:40 O2 Sat by Pulse Oximetry 97 01/27/24 11:40 Pain Scale Pain Intensity 8 - Physical Exam General Appearance: no apparent distress, alert, anxiety Eye Exam: PERRL/EOMI, eyes nml inspection Ears, Nose, Throat Exam: normal ENT inspection, moist mucous membranes Neck Exam: normal inspection, non-tender, supple, full range of motion Respiratory Exam: normal breath sounds, lungs clear, airway intact, No chest tenderness, No respiratory distress Cardiovascular Exam: regular rate/rhythm, normal heart sounds, normal peripheral pulses Gastrointestinal Exam: soft, normal bowel sounds, tenderness (LLQ ABD) Pelvic Exam: not done Rectal Exam: not done Back Exam: normal inspection, normal range of motion, CVA tenderness (Left side), No vertebral tenderness Extremity Exam: normal inspection, normal range of motion, pelvis stable Neurologic Exam: alert, oriented x 3, cooperative, test borer helper II-XII nml as tested, normal mood/affect, nml cerebellar function, nml station & gait, sensation nml Skin Exam: normal color, warm, dry Lymphatic Exam: No adenopathy SpO2 Interpretation: normal O2 Delivery: Room Air - Course Nursing assessment & vital signs reviewed: Yes Ordered Tests: Active Orders 24 hr Category Date Time Status IV Insertion STAT Care 01/27/24 11:58 Active ABDOMEN AND PELVIS W/0 CONTRAS [CT] Stat Exams 01/27/24 12:55 Completed AMYLASE Stat Lab 01/27/24 12:10 Completed CBC W DIFF Stat Lab 01/27/24 12:10 Completed CMP Stat Lab 01/27/24 12:10 Completed LIPASE Stat Lab 01/27/24 12:10 Completed UA W/RFX UR CULTURE Stat Lab 01/27/24 12:02 Completed Medication Summary Generic Name Dose Route Start Last Admin Trade Name Freq PRN Reason Stop Dose Admin Sodium Chloride 500 mls @ 500 mls/hr 01/27/24 14:16 01/27/24 14:24 Sodium Chloride 0.9% 500 Ml IV 01/27/24 15:15 Not Given .Q1H ONE Sodium Chloride 1,000 mls @ 500 mls/hr 01/27/24 14:30 01/27/24 14:29 Sodium Chloride 0.9% 1000 Ml IV 02/26/24 14:29 500 mls/hr .Q2H BLANCA Administration Discontinued Medications Generic Name Dose Route Start Last Admin Trade Name Chad PRN Reason Stop Dose Admin Hydromorphone HCl 0.5 mg 01/27/24 13:08 01/27/24 13:14 Hydromorphone 1 Mg/1ml Inj IV 01/27/24 13:09 0.5 mg STAT ONE Administration Hydromorphone HCl Confirm 01/27/24 13:12 Hydromorphone 1 Mg/1ml Inj Administered 01/27/24 13:13 Dose 1 mg .ROUTE .STK-MED ONE Sodium Chloride 500 mls @ 500 mls/hr 01/27/24 11:58 01/27/24 13:18 Sodium Chloride 0.9% 500 Ml IV 01/27/24 12:57 Infused .Q1H ONE Infusion Sodium Chloride Confirm 01/27/24 12:02 Sodium Chloride 0.9% 500 Ml Administered 01/27/24 12:03 Dose 500 mls @ ud IV .STK-MED ONE Sodium Chloride 500 mls @ 500 mls/hr 01/27/24 12:50 01/27/24 14:07 Sodium Chloride 0.9% 500 Ml IV 01/27/24 13:49 Infused .Q1H ONE Infusion Sodium Chloride Confirm 01/27/24 13:03 Sodium Chloride 0.9% 500 Ml Administered 01/27/24 13:04 Dose 500 mls @ ud IV .STK-MED ONE Morphine Sulfate 4 mg 01/27/24 11:58 01/27/24 12:04 Morphine Sulfate 4 Mg/Ml Injection IV 01/27/24 11:59 4 mg STAT ONE Administration Morphine Sulfate Confirm 01/27/24 12:02 Morphine Sulfate 4 Mg/Ml Injection Administered 01/27/24 12:03 Dose 4 mg .ROUTE .STK-MED ONE Ondansetron HCl 4 mg 01/27/24 11:58 01/27/24 12:04 Ondansetron Hcl 4 Mg/2 Ml Vial IV 01/27/24 11:59 4 mg STAT ONE Administration Ondansetron HCl Confirm 01/27/24 12:02 Ondansetron Hcl 4 Mg/2 Ml Vial Administered 01/27/24 12:03 Dose 4 mg .ROUTE .STK-MED ONE Prochlorperazine Edisylate 5 mg 01/27/24 14:17 01/27/24 14:29 Prochlorperazine Edisylate 10 Mg/2 Ml Vial IV 01/27/24 14:18 5 mg STAT ONE Administration Prochlorperazine Edisylate Confirm 01/27/24 14:26 Prochlorperazine Edisylate 10 Mg/2 Ml Vial Administered 01/27/24 14:27 Dose 10 mg .ROUTE .STK-MED ONE Tamsulosin HCl 0.4 mg 01/27/24 14:17 Tamsulosin Hcl 0.4 Mg Cap PO 01/27/24 14:18 STAT ONE Lab/Rad Data: Laboratory Result Diagrams 01/27/24 12:10 01/27/24 12:10 Laboratory Results 01/27/24 01/27/24 01/27/24 Range/Units 12:10 12:10 12:02 WBC 5.2 (3.98-10.04) x10^3/uL RBC 4.46 (3.93-5.22) x10^6/uL Hgb 14.2 (11.2-15.7) g/dL Hct 40.8 (34.1-44.9) % MCV 91.5 (79.4-94.8) fL MCH 31.8 (25.6-32.2) pg MCHC 34.8 (32.2-35.5) g/dL RDW 12.5 (11.7-14.4) % Plt Count 214 (182-369) x10^3/uL MPV 9.2 L (9.4-12.3) fL Gran % 75.7 H (34.0-71.1) % Immature Gran % (Auto) 0.4 (0.001-0.429) % Nucleat RBC Rel Count 0.0 (0.00-0.2) % Eos # (Auto) 0.06 (0.04-0.36) x10^3/uL Immature Gran # (Auto) 0.02 (0.001-0.031) x10^3u/L Absolute Lymphs (auto) 0.68 L (1.18-3.74) x10^3/uL Absolute Monos (auto) 0.46 (0.24-0.86) x10^3/uL Absolute Nucleated RBC 0.00 (0.00-0.012) x10^3u/L Lymphocytes % 13.0 L (19.3-51.7) % Monocytes % 8.8 (4.7-12.5) % Eosinophils % 1.1 (0.7-5.8) % Basophils % 1.0 (0.1-1.2) % Absolute Granulocytes 3.96 (1.56-6.13) x10^3/uL Basophils # 0.05 (0.01-0.08) x10^3/uL Sodium 137 (135-145) mmol/L Potassium 4.4 (3.5-5.1) mmol/L Chloride 105 (98-107) mmol/L Carbon Dioxide 18 L (22-30) mmol/L Anion Gap 18.3 H (5-15) MEQ/L BUN 19 H (7-17) mg/dL Creatinine 0.54 (0.52-1.04) mg/dL Estimated GFR 100.2 ML/MIN Glucose 197 H (74-106) mg/dL Calcium 9.6 (8.4-10.2) mg/dL Total Bilirubin 0.70 (0.2-1.3) mg/dL AST 45 H (14-36) U/L ALT 37 H (0-35) U/L Alkaline Phosphatase 71 (38-126) U/L Serum Total Protein 7.4 (6.3-8.2) g/dL Albumin 4.5 (3.5-5.0) g/dL Amylase 41 (30-110) U/L Lipase 139 (23-300) U/L Urine Color Yellow (Yellow) Urine Appearance Clear (Clear) Urine pH 5.0 (4.6-8.0) Ur Specific [place] 1.020 (1.005-1.030) Urine Protein Negative (Negative) Urine Glucose (UA) Negative (Negative) mg/dL Urine Ketones 15 A (Negative) Urine Blood Negative (Negative) Urine Nitrite Negative (Negative) Urine Bilirubin Negative (Negative) Urine Urobilinogen 0.2 (0.2) mg/dL Ur Leukocyte Esterase Small A (Negative) U Hyaline Cast (Auto) NONE SEEN (0-2) /LPF Urine Microscopic RBC 0-2 (0-5) /HPF Urine Microscopic WBC 0-2 (0-5) /HPF Ur Epithelial Cells Rare (None Seen) /HPF Calcium Oxalate Crystal 26-50 A (None Seen) /HPF Urine Bacteria Rare A (None Seen) /HPF Urine Culture Reflexed NO (NO) - Progress Progress: improved, pain not gone completely, re-examined Progress Note: 01/27/24 13:04 My medical decision making and the assignment of moderate complexity to this patient's medical issue today is based on review of the patient's past medical history, review the patient's medication list, review the patient drug allergy list, history present illness and physical findings on examination. The workup in this patient includes placement of intravenous line, infusion of crystalloid solution, CBC, CMP, urinalysis, CT scan of the abdomen pelvis without contrast as well as infusion of morphine 4 mg and 4 mg of intravenous Zofran. Differential diagnosis includes but is not limited to pancreatitis, diverticulitis, pyelonephritis, ureterolithiasis, muscle skeletal pain 01/27/24 14:17 Interpreted the patient's laboratory data results. Based on the laboratory data results, there are no acute, emergent medical issues. The CT scan of the abdomen and pelvis was interpreted by the radiologist. The impression states new left proximal left ureteral calculus with high-grade obstructive uropathy. The stone measures 1 cm x 0.5 cm x 1.5 cm 01/27/24 14:19 01/27/24 14:40 I spoke with [facility] hospitalist Dr. Almazan and urologist Dr. Betancur on a three-way phone call. I reviewed the patient's past medical history, presenting complaint and the workup results with them. They accept the patient in transfer. The patient is still uncomfortable and my preference is to have the patient be transported by the paramedics. The patient is concerned that her insurance company will not pay for an ambulance drive. She is hemodynamically stable but her pain has been intermittently controlled here in the emergency department. Counseled pt/family regarding: lab results, diagnosis, rad results Medical Desision Making - Diagnostic Testing Diagnostic test were ordered, analyzed, and reviewed by me: Yes Radiological Interpretation: Reviewed by me, Teleradiologist Report - Risk of complications The pt has a high risk of morbidity or mortality based on: Decision regarding hospitilization or escalation of hosp level of care - Departure Departure Disposition: Transfer Clinical Impression: Left ureteral calculus, Obstructive uropathy Condition: Stable Critical Care Time: No Referrals: ZAYNAB SANCHEZ [Primary Care Provider] - Follow up/PCP as directed
[2024-01-27 11:48] VITALS: TEMP 97.4
[2024-01-27] MEDS ORDERED: MORPHINE SULFATE 4 MG INJ ONE (12:02)
[2024-01-27] MEDS ORDERED: Zofran 4 MG/2 ML VIAL ONE (12:02)
[2024-01-27] MEDS ORDERED: Sodium Chloride 0.9% 500 ML 500 ML IV ONE ×2 (12:02→13:03)
[2024-01-27] MEDS: Zofran 4 MG/2 ML VIAL IV ONE (12:04)
[2024-01-27] MEDS: MORPHINE SULFATE 4 MG INJ IV ONE (12:04)
[2024-01-27 12:16] LABS: Absolute Neutrophil Ct (ANC) 3.96 x10^3/uL (1.56-6.13); Basophil (Absolute #) 0.05 x10^3/uL (0.01-0.08); Eosinophil % 1.1 % (0.7-5.8); Eosinophil (Absolute #) 0.06 x10^3/uL (0.04-0.36); Hematocrit 40.8 % (34.1-44.9); Hemoglobin 14.2 g/dL (11.2-15.7); IMMATURE GRAN # 0.02 x10^3u/L (0.001-0.031); IMMATURE GRAN % 0.4 % (0.001-0.429); Lymphocyte (Absolute #) 0.68 x10^3/uL (1.18-3.74); Mean Cell Volume 91.5 fL (79.4-94.8); Mean Corpuscular Hemoglobin 31.8 pg (25.6-32.2); Mean Corpuscular Hgb Concent. 34.8 g/dL (32.2-35.5); Mean Platelet Volume 9.2 fL (9.4-12.3); Monocyte (Absolute #) 0.46 x10^3/uL (0.24-0.86); Monocytes % 8.8 % (4.7-12.5); Neutrophil % 75.7 % (34.0-71.1); Platelet Count 214 x10^3/uL (182-369); Red Blood Count 4.46 x10^6/uL (3.93-5.22); Red Cell Distribution Width 12.5 % (11.7-14.4); White Blood Count 5.2 x10^3/uL (3.98-10.04)
[2024-01-27] MEDS: Sodium Chloride 0.9% 500 ML 500 ML IV ONE ×3 (12:18→14:24)
[2024-01-27 12:39] LABS: Appearance Clear (Clear); Bacteria Rare /HPF (None Seen); Bilirubin Negative (Negative); Blood Negative (Negative); Calcium Oxalate Crystals 26-50 /HPF (None Seen); Epithelial Cells Rare /HPF (None Seen); Glucose, Urine Negative (Negative); Hyaline Casts NONE SEEN /LPF (0-2); Ketones 15 (Negative); Leukocyte Esterase Small (Negative); Nitrite Negative (Negative); Protein,Urine Dip Negative (Negative); RBC 0-2 /HPF (0-5); Urobilinogen 0.2 mg/dL (0.2); WBC 0-2 /HPF (0-5)
[2024-01-27 12:43] LABS: ALBUMIN 4.5 g/dL (3.5-5.0); ANION GAP 18.3 MEQ/L (5-15); BILIRUBIN,TOTAL 0.7 mg/dL (0.2-1.3); Calcium 9.6 mg/dL (8.4-10.2); Creatinine 1 0.54 mg/dL (0.52-1.04); EST GLOMERULAR FILTRATION RATE 100.2 ML/MIN; Potassium 4.4 mmol/L (3.5-5.1); Total Protein 7.4 g/dL (6.3-8.2)
[2024-01-27] MEDS ORDERED: Hydromorphone 1 mg/ml Injection ONE (13:12)
[2024-01-27] MEDS: Hydromorphone 1 mg/ml Injection IV ONE (13:14)
[2024-01-27 13:15] VITALS: PULSE 72; RESP 18
--- NOTE | 2024-01-27 14:08 | XRAY ---
Indication: Left flank pain. Diverticulitis. Multiple contiguous axial images obtained through the abdomen and pelvis without contrast using renal stone protocol. Comparison: July 27, 2021 Lung bases clear. Heart borderline enlarged. Stable small hiatal hernia. Proximal left ureter demonstrates new 1.0 x 0.5 x 1.5 cm calculus, approximately L3-L4 interspace level. Left kidney is moderately hydronephrotic and edematous with perinephric stranding/fluid favoring high-grade obstructive uropathy. Additional punctate calculus in each kidney. Noncontrasted stomach and bowel loops appear nonobstructed with normal appendix. Again scattered colonic diverticulosis and hysterectomy. Remaining liver, gallbladder, pancreas, spleen, adrenal glands, kidneys, ureters, and bladder are unremarkable for noncontrast exam. Again mild scattered aortoiliac calcifications without AAA. Osseous structures intact again with minimal generative changes throughout spine. Impression: 1. New proximal left ureteral calculus producing high-grade obstruction as detailed. Additional bilateral renal punctate calculi. 2. Again chronic findings including colonic diverticulosis, arteriosclerotic disease, and chronic bony findings.
[2024-01-27] MEDS ORDERED: Compazine 10 MG/2 ML ONE (14:26)
[2024-01-27] MEDS ORDERED: Sodium Chloride 0.9% 1000 ML 1,000 ML ONE (14:26)
[2024-01-27] MEDS: Compazine 10 MG/2 ML IV ONE (14:29)
[2024-01-27] MEDS: Sodium Chloride 0.9% 1000 ML 1,000 ML IV SCH (14:29)
[2024-01-27] MEDS ORDERED: Flomax 0.4 MG ONE (14:56)
[2024-01-27] MEDS: Flomax 0.4 MG PO ONE (14:57)
[2024-01-27 15:31] VITALS: O2SAT 91
[2024-01-27 16:09] VITALS: BP 164/83
== END 2024-01-27 15:57 ==
LOC: ED 11:26
DX: N20.1 Calculus of ureter (principal); N13.9 Obstructive and reflux uropathy, unspecified; R19.7 Diarrhea, unspecified; Z79.899 Other long term (current) drug therapy; Z79.01 Long term (current) use of anticoagulants; Z87.19 Personal history of other diseases of the digestive system
CPT/HCPCS: 36000; 36415; 74176; 80053; 81001; 82150; 83690; 85025; 96374; 96375; 99284; 99285; J1171; J2270; J2405; A9270-GY

== ENCOUNTER 2024-05-04 11:05 | Inpatient (IN) | payer MEDICARE, SELFPAY ==
--- NOTE | 2024-05-04 11:38 | ERPHSYRPT ---
- History of Present Illness Time Seen by Provider: 05/04/24 11:20 Source: patient, EMS Exam Limitations: no limitations Patient Subjective Stated Complaint: pt here for a fall today outside, she states she slipped on ice, and was unable to get up. co pain to right hip Triage Nursing Assessment: pt alert, arrived per ambulance laying on left side, has brown bruising to right side of abd. she states she is unalbe to move it, skin w/d/p, chest clear, abd soft Physician History: This is a 68-year-old white female patient who was brought to the emergency department by the paramedics. Paramedics were contacted because the patient felt on her right hip and is having pain. She is unable to get up on her own and ambulate. Patient was outside trying to remove the snow and ice from her car window. She was in boots and slipped and fell. She did not hit her head. She has no headache. She did not injure her neck and she has no neck pain. Her pain is localized to the right hip. Patient has a history of diverticulosis, hypothyroidism, anxiety, hypertension, hyperlipidemia, diabetes, bronchitis, coronary artery disease (CABG) and is on Plavix. Occurred: just prior to arrival Reason for Fall: slipped (Patient slipped on ice when trying to clean her car windows) Injuries/Pain Location: lower extremity (Right hip) Loss of Consciousness: no loss of consciousness Quality: aching Severity of Pain-Max: moderate Severity of Pain-Current: moderate Modifying Factors: Improves With: movement (Worsens) Associated Symptoms (Fall): denies symptoms Allergies/Adverse Reactions: adhesive tape Allergy (Verified 05/04/24 11:12) Rash Home Medications: Levothyroxine Sodium [Euthyrox] 50 mcg PO DAILY 10/07/19 [History] clonazePAM [Clonazepam] 0.5 mg PO BIDPRN PRN 10/07/19 [History] Furosemide 20 mg [Lasix 20 mg] 20 mg PO DAILY 03/15/20 [History] Metoprolol Tartrate 25 mg [Lopressor 25MG Tab] 25 mg PO DAILY 03/15/20 [History] Potassium Chloride Tab* [Klor Con] 10 meq PO BID 03/15/20 [History] Budesonide/Formoterol Fumarate [Budesonide-Formoterol 160-4.5] 1 puff IH DAILY 03/20/21 [History] Ezetimibe 10 mg [Zetia 10 MG] 10 mg PO DAILY 08/28/22 [History] Atorvastatin Calcium [Lipitor 40Mg] 40 mg PO DAILY 10/04/22 [History] Glimepiride 4 mg PO DAILY 10/04/22 [History] Metformin HCl 850 mg [Glucophage 850 MG] 850 mg PO BID 10/04/22 [History] Hx Tetanus, Diphtheria Vaccination/Date Given: No (unknown) Hx Influenza Vaccination/Date Given: Yes Hx Pneumococcal Vaccination/Date Given: Yes Immunizations Up to Date: Yes Travel Risk - International Travel Have you traveled outside of the country in past 3 weeks: No - Emerging Infectious Disease Are you exhibiting symptoms associated with any current EIDs: No Symptoms: Abdominal Pain, Diarrhea, Vomitting - Review of Systems Constitutional: No Symptoms Eyes: No Symptoms Ears, Nose, & Throat: No Symptoms Respiratory: No Symptoms Cardiac: No Symptoms Abdominal/Gastrointestinal: No Symptoms Genitourinary Symptoms: No Symptoms Musculoskeletal: Fall, Injury (Right hip) Skin: No Symptoms Neurological: No Symptoms Psychological: No Symptoms Endocrine: No Symptoms Hematologic/Lymphatic: No Symptoms Immunological/Allergic: No Symptoms All Other Systems: Reviewed and Negative - Past Medical History Pertinent Past Medical History: Yes Neurological History: No Pertinent History ENT History: Cataracts Cardiac History: Angina, Coronary Artery Disease, Hypertension, Myocardial Infarction (PA) Respiratory History: Bronchitis, Pneumonia Endocrine Medical History: Diabetes Type II, Hypothyroidism Musculoskeletal History: Fractures GI Medical History: No Pertinent History History: No Pertinent History Psycho-Social History: Anxiety Female Reproductive Disorders: No Pertinent History Other Medical History: hx of polyps,gerd - Past Surgical History Past Surgical History: Yes Neuro Surgical History: No Pertinent History Cardiac: CABG Respiratory: No Pertinent History Gastrointestinal: No Pertinent History Genitourinary: No Pertinent History Musculoskeletal: No Pertinent History Female Surgical History: Hysterectomy, Tubal Ligation Other Surgical History: cyst removed from neck, heel supr, bladder extension, carpal tunnel,EGD and colonoscopy - Social History Smoking Status: Never smoker Exposure to second hand smoke: Yes Drug Use: none - Social Determinants of Health Will the patient participate in the screening: Yes Do you worry about a steady place to live?: No Do you have any problems with any of the following?: No known problems In the past 12 months,have you had to go without utilities?: No Transportation Issues: No Has anyone in your support network made you feel unsafe?: No Have you or anyone in your house had to go w/o enough food: No - Nursing Vital Signs Nursing Vital Signs: Initial Vital Signs Blood Pressure 131/69 05/04/24 11:10 O2 Sat by Pulse Oximetry 91 L 05/04/24 11:10 Pain Scale Pain Intensity [Right Hip] 9 Pain Intensity 9 - Paulo Coma Score Best Eye Response (Pinson): (4) open spontaneously Best Verbal Response (Pinson): (5) oriented Best Motor Response (Pinson): (6) obeys commands Pinson Total: 15 - Physical Exam General Appearance: no apparent distress, alert, anxiety Head Injury: no evidence of injury Eye Exam: PERRL/EOMI, eyes nml inspection ENT Exam: airway nml, nml ext.inspection, No evidence of ENT injury Neck Exam: supple, trachea midline, full range of motion, normal alignment Respiratory/Chest Exam: normal breath sounds, No chest tenderness, No respiratory distress, No ecchymosis, No crepitus Cardiovascular Exam: normal heart sounds, regular rate/rhythm Gastrointestinal Exam: soft, normal bowel sounds, No tenderness Rectal Exam: not done Back Exam: normal inspection, normal range of motion, No CVA tenderness, No vertebral tenderness Extremity Exam: normal inspection, pelvis stable, hip tenderness (Right hip to palpation), tenderness (To palpation right hip), other (No obvious external rotation of her right lower extremity), No deformities Neurologic Exam: alert, oriented x 3, cooperative, furnace tapper II-XII nml as tested, sensation nml Skin Exam: normal color, warm, dry SpO2 Interpretation: normal SpO2: 95 O2 Delivery: Room Air - Course Nursing assessment & vital signs reviewed: Yes Ordered Tests: Active Orders 24 hr Category Date Time Status EKG-ER Only STAT Care 05/04/24 12:42 Active Brantley [Catheter-Anderson Brantley] STAT Care 05/04/24 12:38 Active IV Insertion STAT Care 05/04/24 12:42 Active CHEST 1 VIEW (PORTABLE) Stat Exams 05/04/24 13:23 Taken FEMUR Stat Exams 05/04/24 11:38 Completed HIP UNI (2V) INCL PEL IF DONE Stat Exams 05/04/24 11:38 Completed CBC W DIFF Stat Lab 05/04/24 12:57 Completed CMP Stat Lab 05/04/24 12:57 Completed PROTIME WITH INR Stat Lab 05/04/24 12:57 Completed Medication Summary Discontinued Medications Generic Name Dose Route Start Last Admin Trade Name Freq PRN Reason Stop Dose Admin Droperidol 0.625 mg 05/04/24 12:44 05/04/24 12:52 Droperidol 5 Mg/2 Ml Vial IV 05/04/24 12:45 0.625 mg STAT ONE Administration Droperidol Confirm 05/04/24 12:49 Droperidol 5 Mg/2 Ml Vial Administered 05/04/24 12:50 Dose 5 mg .ROUTE .STK-MED ONE Lorazepam 1 mg 05/04/24 12:43 05/04/24 12:52 Lorazepam 2 Mg/1 Ml 2 Mg Vial IV 05/04/24 12:44 1 mg STAT ONE Administration Lorazepam Confirm 05/04/24 12:49 Lorazepam 2 Mg/1 Ml 2 Mg Vial Administered 05/04/24 12:50 Dose 2 mg .ROUTE .STK-MED ONE Meperidine HCl 25 mg 05/04/24 13:37 Meperidine Hcl 50 Mg/Ml Carp IV 05/04/24 13:38 STAT ONE Lab/Rad Data: Laboratory Result Diagrams 05/04/24 12:57 05/04/24 12:57 Laboratory Results 05/04/24 05/04/24 05/04/24 Range/Units 12:57 12:57 12:57 WBC 7.3 (3.98-10.04) x10^3/uL RBC 4.55 (3.93-5.22) x10^6/uL Hgb 14.3 (11.2-15.7) g/dL Hct 41.1 (34.1-44.9) % MCV 90.3 (79.4-94.8) fL MCH 31.4 (25.6-32.2) pg MCHC 34.8 (32.2-35.5) g/dL RDW 12.2 (11.7-14.4) % Plt Count 209 (182-369) x10^3/uL MPV 9.2 L (9.4-12.3) fL Gran % 81.6 H (34.0-71.1) % Immature Gran % (Auto) 0.7 H (0.001-0.429) % Nucleat RBC Rel Count 0.0 (0.00-0.2) % Eos # (Auto) 0.04 (0.04-0.36) x10^3/uL Immature Gran # (Auto) 0.05 H (0.001-0.031) x10^3u/L Absolute Lymphs (auto) 0.80 L (1.18-3.74) x10^3/uL Absolute Monos (auto) 0.43 (0.24-0.86) x10^3/uL Absolute Nucleated RBC 0.00 (0.00-0.012) x10^3u/L Lymphocytes % 10.9 L (19.3-51.7) % Monocytes % 5.9 (4.7-12.5) % Eosinophils % 0.5 L (0.7-5.8) % Basophils % 0.4 (0.1-1.2) % Absolute Granulocytes 5.99 (1.56-6.13) x10^3/uL Basophils # 0.03 (0.01-0.08) x10^3/uL PT 10.7 (9.4-12.5) SECONDS INR 0.98 (0.8-3.0) Sodium 135 (135-145) mmol/L Potassium 4.2 (3.5-5.1) mmol/L Chloride 98 (98-107) mmol/L Carbon Dioxide 23 (22-30) mmol/L Anion Gap 18.2 H (5-15) MEQ/L BUN 15 (7-17) mg/dL Creatinine 0.45 L (0.52-1.04) mg/dL Estimated GFR 104.7 ML/MIN Glucose 331 H (74-106) mg/dL Calcium 9.6 (8.4-10.2) mg/dL Total Bilirubin 0.80 (0.2-1.3) mg/dL AST 37 H (14-36) U/L ALT 38 H (0-35) U/L Alkaline Phosphatase 102 (38-126) U/L Serum Total Protein 7.5 (6.3-8.2) g/dL Albumin 4.7 (3.5-5.0) g/dL - Progress Progress: improved, pain not gone completely Progress Note: 05/04/24 11:54 My medical decision making and the assignment of low to moderate complexity is based on review of the patient's past medical history, review of the patient's medication list, reviewed patient drug allergy list, history present illness and physical findings on examination. The workup in this patient includes x-ray of the patient's right hip and pelvis as well as x-ray of the patient's right femur. Differential diagnosis includes but is not limited to contusion, fracture dislocation of right hip/femur 05/04/24 12:45 The right hip/pelvis x-ray final report was interpreted by the radiologist and I reviewed the impression. The impression states comminuted right intertrochanteric acute fracture with displaced lesser trochanter fracture fr agment. The right femur, 2 view, x-ray was interpreted by the radiologist and I reviewed the impression. The impression states comminuted right intertrochanteric acute fracture with displaced lesser trochanter fracture fragment. No other abnormalities seen. I consulted Dr. Sosa, our orthopedic surgeon on-call at this time. I reviewed the patient history with him. He will review the films to determine what surgical plan will be recommended. 05/04/24 13:[address] Sosa after he reviewed the x-ray of the patient's right hip. He agrees to surgically intervene. He obtained a operative time tomorrow, 05/05/2024. I am placing a call to the telehospitalist on-call at this time. I reviewed the patient's laboratory data results. Based on the laboratory data results there are no acute, emergent findings. 05/04/24 13:[address] Gaxiola, our hospitalist on-call at this time and I reviewed the patient history, presenting complaint, physical findings on examination and results of the emergency room workup. She agrees to admit this patient. 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 Gaxiola disease hospitalist) and Ian (orthopedic surgery)) Reviewed:: Test results, Need for additional workup - Diagnostic Testing Diagnostic test were ordered, analyzed, and reviewed by me: Yes Radiological Interpretation: Reviewed by me, Teleradiologist Report - Risk of complications The pt has a high risk of morbidity or mortality based on: Decision regarding hospitilization or escalation of hosp level of care - Departure Departure Disposition: In-patient Admission Clinical Impression: Closed right hip fracture Condition: Stable Critical Care Time: No Referrals: ZAYNAB SANCHEZ [Primary Care Provider] - Follow up/PCP as directed
--- NOTE | 2024-05-04 12:33 | XRAY ---
Indication: Pain following fall. Comparison: None AP pelvis and 2-view right hip demonstrates comminuted right intertrochanteric acute fracture with displaced lesser trochanter fracture fragment. Elsewhere osteopenia and left inguinal surgical clips. No other bony, articular, or soft tissue abnormalities.
--- NOTE | 2024-05-04 12:33 | XRAY ---
Indication: Pain following fall. Comparison: None 2-view right femur demonstrates comminuted intertrochanteric acute fracture with displaced lesser trochanter fracture fragment. Elsewhere osteopenia and mild scattered vascular calcifications. No other bony, articular, or soft tissue abnormalities.
[2024-05-04] MEDS ORDERED: Inapsine 5 MG/2 ML ONE (12:49)
[2024-05-04] MEDS ORDERED: Ativan 2 MG/1 ML VIAL ONE (12:49)
[2024-05-04] MEDS: Inapsine 5 MG/2 ML IV ONE (12:52)
[2024-05-04] MEDS: Ativan 2 MG/1 ML VIAL IV ONE (12:52)
[2024-05-04 12:57] LABS: Absolute Neutrophil Ct (ANC) 5.99 x10^3/uL (1.56-6.13); BASOPHIL % 0.4 % (0.1-1.2); Basophil (Absolute #) 0.03 x10^3/uL (0.01-0.08); Eosinophil % 0.5 % (0.7-5.8); Eosinophil (Absolute #) 0.04 x10^3/uL (0.04-0.36); Hematocrit 41.1 % (34.1-44.9); Hemoglobin 14.3 g/dL (11.2-15.7); IMMATURE GRAN # 0.05 x10^3u/L (0.001-0.031); IMMATURE GRAN % 0.7 % (0.001-0.429); Lymphocytes % 10.9 % (19.3-51.7); Mean Cell Volume 90.3 fL (79.4-94.8); Mean Corpuscular Hemoglobin 31.4 pg (25.6-32.2); Mean Corpuscular Hgb Concent. 34.8 g/dL (32.2-35.5); Mean Platelet Volume 9.2 fL (9.4-12.3); Monocyte (Absolute #) 0.43 x10^3/uL (0.24-0.86); Monocytes % 5.9 % (4.7-12.5); Neutrophil % 81.6 % (34.0-71.1); Platelet Count 209 x10^3/uL (182-369); Red Blood Count 4.55 x10^6/uL (3.93-5.22); Red Cell Distribution Width 12.2 % (11.7-14.4); White Blood Count 7.3 x10^3/uL (3.98-10.04)
[2024-05-04 13:10] LABS: INR 0.98 (0.8-3.0); PROTIME 10.7 SECONDS (9.4-12.5)
[2024-05-04 13:11] LABS: ALBUMIN 4.7 g/dL (3.5-5.0); ANION GAP 18.2 MEQ/L (5-15); BILIRUBIN,TOTAL 0.8 mg/dL (0.2-1.3); Calcium 9.6 mg/dL (8.4-10.2); Creatinine 1 0.45 mg/dL (0.52-1.04); EST GLOMERULAR FILTRATION RATE 104.7 ML/MIN; Potassium 4.2 mmol/L (3.5-5.1); Total Protein 7.5 g/dL (6.3-8.2)
[2024-05-04] MEDS ORDERED: DEMEROL 50 MG ONE (13:44)
[2024-05-04] MEDS: DEMEROL 50 MG IV ONE (13:45)
--- NOTE | 2024-05-04 13:58 | XRAY ---
Indication: Preop exam. Comparison: March 20, 2021 Portable chest less inflated, accentuating cardiopulmonary structures. Grossly stable left mid to lower lung subsegmental atelectasis/scarring. Remaining lungs clear. Heart borderline enlarged again with CABG. Bony thorax intact again with osteopenia and degenerative changes. Impression: Nonacute underinflated chest again with chronic features.
[2024-05-04] MEDS ORDERED: Zofran 4 MG/2 ML VIAL IV PRN ×2 (15:08→15:52)
[2024-05-04] MEDS ORDERED: HUMULIN R SQ PRN (15:08)
--- NOTE | 2024-05-04 15:46 | PCM.HP ---
<KOMAL PAYTON - Last Filed: 05/04/24 15:40> History of Present Illness - Chief Complaint Chief Complaint: Right hip fracture Date: 05/04/24 History of Present Illness: is a 68 year old female with a pmhx of HTN, HLD, CAD (s/p bypass 5 years ago), DMII, and hypothyroid who presented to ED 05/04/24 for evaluation of hip pain after a fall at home. Patient states she was scraping ice off of her car when she slipped on ice and fell to her right side. No LOC. No trauma to her head. She describes her right hip pain as shooting/stabbing and rates the pain 5/10 on numerical pain scale. Pain is localized to the right hip. Denies fever,c ough, sob, cp, abdominal pain, MERRITT, dizziness, N/V/D. Upon arrival to ED, vitals stable. HIP and femur xray showing demonstrates comminuted right intertrochanteric acute fracture with displaced lesser trochanter fracture fragment. CXR with no acute findings. Labs remarkable for hyperglycemia and mildly elevated LFTs. Patient was given ativan and demoral in ED. Dr. Sosa consulted in ED - plans for surgical intervention 05/05/24. - Review of Systems Constitutional: No Symptoms Eyes: No Symptoms Ears, Nose, & Throat: No Symptoms Respiratory: No Symptoms Cardiac: No Symptoms Abdominal/Gastrointestinal: No Symptoms Genitourinary Symptoms: No Symptoms Musculoskeletal: Joint Pain (right hip) Skin: No Symptoms Neurological: No Symptoms Psychological: No Symptoms Endocrine: No Symptoms Hematologic/Lymphatic: No Symptoms Immunological/Allergic: No Symptoms Medications & Allergies Home Medications: Home Medication List Levothyroxine Sodium [Euthyrox] 50 mcg PO DAILY 10/07/19 [History Confirmed 05/04/24] clonazePAM [Clonazepam] 0.5 mg PO BIDPRN PRN 10/07/19 [History Confirmed 05/04/24] Furosemide 20 mg [Lasix 20 mg] 20 mg PO DAILY 03/15/20 [History Confirmed 05/04/24] Metoprolol Tartrate 25 mg [Lopressor 25MG Tab] 25 mg PO DAILY 03/15/20 [History Confirmed 05/04/24] Potassium Chloride Tab* [Klor Con] 10 meq PO BID 03/15/20 [History Confirmed 05/04/24] Budesonide/Formoterol Fumarate [Budesonide-Formoterol 160-4.5] 1 puff IH DAILY 03/20/21 [History Confirmed 05/04/24] Ezetimibe 10 mg [Zetia 10 MG] 10 mg PO DAILY 08/28/22 [History Confirmed 05/04/24] Atorvastatin Calcium [Lipitor 40Mg] 40 mg PO DAILY 10/04/22 [History Confirmed 05/04/24] Clopidogrel Bisulfate [PLAVIX Tablet] 75 mg PO DAILY #0 10/04/22 [Rx Confirmed 05/04/24] Glimepiride 4 mg PO DAILY 10/04/22 [History Confirmed 05/04/24] Metformin HCl 850 mg [Glucophage 850 MG] 850 mg PO BID 10/04/22 [History Confirmed 05/04/24] Allergies/Adverse Reactions: Allergies Allergy/AdvReac Type Severity Reaction Status Date / Time adhesive tape Allergy Rash Verified 05/04/24 11:12 - Past Medical History Past Medical History: Yes Neurological History: No Pertinent History ENT History: Cataracts Cardiac History: Angina, Coronary Artery Disease, Hypertension, Myocardial Infarction ([place]) Respiratory History: Bronchitis, Pneumonia Endocrine Medical History: Diabetes Type II, Hypothyroidism Musculoskelatal History: Fractures GI Medical History: No Pertinent History History: No Pertinent History Pyscho-Social History: Anxiety Reproductive Disorders: No Pertinent History Comment: hx of polyps,gerd - Past Surgical History Past Surgical History: Yes Neuro Surgical History: No Pertinent History Cardiac History: CABG Respiratory Surgery: No Pertinent History GI Surgical History: No Pertinent History Genitourinary Surgical Hx: No Pertinent History Musculskeletal Surgical Hx: No Pertinent History Female Surgical History: Hysterectomy, Tubal Ligation Other Surgical History: cyst removed from neck, heel supr, bladder extension, carpal tunnel,EGD and colonoscopy Significant Family History: heart disease, diabetes, hypertension - Social History Smoking Status: Never smoker Exposure to second hand smoke: No Alcohol: None Drug Use: none - Social Determinants of Health Will the patient participate in the screening: Yes Do you worry about a steady place to live?: Yes Do you have any problems with any of the following?: No known problems In the past 12 months,have you had to go without utilities?: No Have you or anyone in your house had to go without enough: No Transportation Issues: No Has anyone in your support network made you feel unsafe?: No Does the patient want assistance with any of the above?: No - Physical Exam Vital Signs: Vital Signs - 24 hr Temp Pulse Resp BP BP Pulse Ox 05/04/24 14:00 78 18 119/72 95 05/04/24 13:45 95 05/04/24 13:30 113/59 95 05/04/24 13:20 89 L 05/04/24 13:10 91 L 05/04/24 13:03 93 L 05/04/24 12:31 142/57 97 05/04/24 12:30 97 05/04/24 12:20 94 L 05/04/24 12:19 96 05/04/24 11:30 136/60 05/04/24 11:11 96.7 F 72 18 131/69 95 05/04/24 11:10 131/69 91 L General Appearance: no apparent distress Neurologic Exam: alert, oriented x 3, cooperative Eye Exam: PERRL/EOMI Ears, Nose, Throat Exam: normal ENT inspection Neck Exam: normal inspection Respiratory Exam: normal breath sounds, lungs clear Cardiovascular Exam: regular rate/rhythm, normal heart sounds Gastrointestinal/Abdomen Exam: soft, normal bowel sounds Pelvic Exam: not done Rectal Exam: deferred Back Exam: normal inspection Extremity Exam: limited range of motion (right hip) Skin Exam: normal color Results - Labs Lab/Micro Results: Lab Results-Last 24 Hours 05/04/24 05/04/24 05/04/24 Range/Units 12:57 12:57 12:57 WBC 7.3 (3.98-10.04) x10^3/uL RBC 4.55 (3.93-5.22) x10^6/uL Hgb 14.3 (11.2-15.7) g/dL Hct 41.1 (34.1-44.9) % MCV 90.3 (79.4-94.8) fL MCH 31.4 (25.6-32.2) pg MCHC 34.8 (32.2-35.5) g/dL RDW 12.2 (11.7-14.4) % Plt Count 209 (182-369) x10^3/uL MPV 9.2 L (9.4-12.3) fL Gran % 81.6 H (34.0-71.1) % Immature Gran % (Auto) 0.7 H (0.001-0.429) % Nucleat RBC Rel Count 0.0 (0.00-0.2) % Eos # (Auto) 0.04 (0.04-0.36) x10^3/uL Immature Gran # (Auto) 0.05 H (0.001-0.031) x10^3u/L Absolute Lymphs (auto) 0.80 L (1.18-3.74) x10^3/uL Absolute Monos (auto) 0.43 (0.24-0.86) x10^3/uL Absolute Nucleated RBC 0.00 (0.00-0.012) x10^3u/L Lymphocytes % 10.9 L (19.3-51.7) % Monocytes % 5.9 (4.7-12.5) % Eosinophils % 0.5 L (0.7-5.8) % Basophils % 0.4 (0.1-1.2) % Absolute Granulocytes 5.99 (1.56-6.13) x10^3/uL Basophils # 0.03 (0.01-0.08) x10^3/uL PT 10.7 (9.4-12.5) SECONDS INR 0.98 (0.8-3.0) Sodium 135 (135-145) mmol/L Potassium 4.2 (3.5-5.1) mmol/L Chloride 98 (98-107) mmol/L Carbon Dioxide 23 (22-30) mmol/L Anion Gap 18.2 H (5-15) MEQ/L BUN 15 (7-17) mg/dL Creatinine 0.45 L (0.52-1.04) mg/dL Estimated GFR 104.7 ML/MIN Glucose 331 H (74-106) mg/dL Calcium 9.6 (8.4-10.2) mg/dL Total Bilirubin 0.80 (0.2-1.3) mg/dL AST 37 H (14-36) U/L ALT 38 H (0-35) U/L Alkaline Phosphatase 102 (38-126) U/L Serum Total Protein 7.5 (6.3-8.2) g/dL Albumin 4.7 (3.5-5.0) g/dL - Radiology Impressions Radiology Exams & Impressions: Radiology Procedures Category Date Time Status CHEST 1 VIEW (PORTABLE) Stat Exams 05/04/24 13:23 Completed FEMUR Stat Exams 05/04/24 11:38 Completed HIP UNI (2V) INCL PEL IF DONE Stat Exams 05/04/24 11:38 Completed Assessment/Plan (1) Closed right hip fracture Current Visit: Yes Status: Acute Assessment & Plan: -Hip and femur xray reviewed demonstrating comminuted right intertrochanteric acute fracture with displaced lesser trochanter fracture fragment -Dr. Sosa - ortho consulted - plans for surgery 05/05/24 -NPO after midnight -Pain control -PT after surgery Code(s): S72.001A - FRACTURE OF UNSP PART OF NECK OF RIGHT FEMUR, INIT (2) Type 2 diabetes mellitus Current Visit: Yes Status: Acute Assessment & Plan: -Patient currently on CLD - ADA when able -SSI -A1C (3) HLD (hyperlipidemia) Current Visit: Yes Status: Acute Assessment & Plan: -continue home statin Code(s): E78.5 - HYPERLIPIDEMIA, UNSPECIFIED (4) Hypertension Current Visit: No Status: Acute Assessment & Plan: -BP stable - continue home meds VTE: hold for surgery PPI: protonix Dispo 1-2 days Code(s): I10 - ESSENTIAL (PRIMARY) HYPERTENSION <HAFSA KEN - Last Filed: 05/04/24 18:52> History of Present Illness - Chief Complaint History of Present Illness: is a 68 year old female. - Physical Exam Vital Signs: Vital Signs - 24 hr Temp Pulse Resp BP BP Pulse Ox 05/04/24 14:00 78 18 119/72 95 05/04/24 13:45 95 05/04/24 13:30 113/59 95 05/04/24 13:20 89 L 05/04/24 13:10 91 L 05/04/24 13:03 93 L 05/04/24 12:31 142/57 97 05/04/24 12:30 97 05/04/24 12:20 94 L 05/04/24 12:19 96 05/04/24 11:30 136/60 05/04/24 11:11 96.7 F 72 18 131/69 95 05/04/24 11:10 131/69 91 L Results - Labs Lab/Micro Results: Lab Results-Last 24 Hours 05/04/24 05/04/24 05/04/24 Range/Units 12:57 12:57 12:57 WBC 7.3 (3.98-10.04) x10^3/uL RBC 4.55 (3.93-5.22) x10^6/uL Hgb 14.3 (11.2-15.7) g/dL Hct 41.1 (34.1-44.9) % MCV 90.3 (79.4-94.8) fL MCH 31.4 (25.6-32.2) pg MCHC 34.8 (32.2-35.5) g/dL RDW 12.2 (11.7-14.4) % Plt Count 209 (182-369) x10^3/uL MPV 9.2 L (9.4-12.3) fL Gran % 81.6 H (34.0-71.1) % Immature Gran % (Auto) 0.7 H (0.001-0.429) % Nucleat RBC Rel Count 0.0 (0.00-0.2) % Eos # (Auto) 0.04 (0.04-0.36) x10^3/uL Immature Gran # (Auto) 0.05 H (0.001-0.031) x10^3u/L Absolute Lymphs (auto) 0.80 L (1.18-3.74) x10^3/uL Absolute Monos (auto) 0.43 (0.24-0.86) x10^3/uL Absolute Nucleated RBC 0.00 (0.00-0.012) x10^3u/L Lymphocytes % 10.9 L (19.3-51.7) % Monocytes % 5.9 (4.7-12.5) % Eosinophils % 0.5 L (0.7-5.8) % Basophils % 0.4 (0.1-1.2) % Absolute Granulocytes 5.99 (1.56-6.13) x10^3/uL Basophils # 0.03 (0.01-0.08) x10^3/uL PT 10.7 (9.4-12.5) SECONDS INR 0.98 (0.8-3.0) Sodium 135 (135-145) mmol/L Potassium 4.2 (3.5-5.1) mmol/L Chloride 98 (98-107) mmol/L Carbon Dioxide 23 (22-30) mmol/L Anion Gap 18.2 H (5-15) MEQ/L BUN 15 (7-17) mg/dL Creatinine 0.45 L (0.52-1.04) mg/dL Estimated GFR 104.7 ML/MIN Glucose 331 H (74-106) mg/dL POC Glucometer (74 to 106) mg/dL Calcium 9.6 (8.4-10.2) mg/dL Total Bilirubin 0.80 (0.2-1.3) mg/dL AST 37 H (14-36) U/L ALT 38 H (0-35) U/L Alkaline Phosphatase 102 (38-126) U/L Serum Total Protein 7.5 (6.3-8.2) g/dL Albumin 4.7 (3.5-5.0) g/dL Prealbumin (17.6-36.0) mg/dL 05/04/24 05/04/24 Range/Units 12:57 16:45 WBC (3.98-10.04) x10^3/uL RBC (3.93-5.22) x10^6/uL Hgb (11.2-15.7) g/dL Hct (34.1-44.9) % MCV (79.4-94.8) fL MCH (25.6-32.2) pg MCHC (32.2-35.5) g/dL RDW (11.7-14.4) % Plt Count (182-369) x10^3/uL MPV (9.4-12.3) fL Gran % (34.0-71.1) % Immature Gran % (Auto) (0.001-0.429) % Nucleat RBC Rel Count (0.00-0.2) % Eos # (Auto) (0.04-0.36) x10^3/uL Immature Gran # (Auto) (0.001-0.031) x10^3u/L Absolute Lymphs (auto) (1.18-3.74) x10^3/uL Absolute Monos (auto) (0.24-0.86) x10^3/uL Absolute Nucleated RBC (0.00-0.012) x10^3u/L Lymphocytes % (19.3-51.7) % Monocytes % (4.7-12.5) % Eosinophils % (0.7-5.8) % Basophils % (0.1-1.2) % Absolute Granulocytes (1.56-6.13) x10^3/uL Basophils # (0.01-0.08) x10^3/uL PT (9.4-12.5) SECONDS INR (0.8-3.0) Sodium (135-145) mmol/L Potassium (3.5-5.1) mmol/L Chloride (98-107) mmol/L Carbon Dioxide (22-30) mmol/L Anion Gap (5-15) MEQ/L BUN (7-17) mg/dL Creatinine (0.52-1.04) mg/dL Estimated GFR ML/MIN Glucose (74-106) mg/dL POC Glucometer 328 H (74 to 106) mg/dL Calcium (8.4-10.2) mg/dL Total Bilirubin (0.2-1.3) mg/dL AST (14-36) U/L ALT (0-35) U/L Alkaline Phosphatase (38-126) U/L Serum Total Protein (6.3-8.2) g/dL Albumin (3.5-5.0) g/dL Prealbumin 25.69 (17.6-36.0) mg/dL Accuchecks Date 05/04/24 Time 17:14 - Radiology Impressions Radiology Exams & Impressions: Radiology Procedures Category Date Time Status CHEST 1 VIEW (PORTABLE) Stat Exams 05/04/24 13:23 Completed FEMUR Stat Exams 05/04/24 11:38 Completed HIP UNI (2V) INCL PEL IF DONE Stat Exams 05/04/24 11:38 Completed GINNY Encounter - GINNY Encounter Attestation GINNY Encounter Attestation: "IhavepersonallyseenandexamineCOLE Campoverde andhavediscussed pertinent aspects of their care with Komal Mendoza agree with the history, physical exam (any modifications based on my personal exam will be noted below), assessment, and plan as outlined in original note. Please see immediately below for my summary of findings and additional assessment and plan along with any meaningful corrections/explanations to the Subjective/Objective portions of the GINNY note will be noted." My portion of the encounter took place via telemedicine. -Fall with right IT femur fracture, surgery planned for tomorrow. Pain control, hold oral hypoglycemics. Will follow post op.
[2024-05-04] MEDS ORDERED: HUMALOG SQ PRN (15:52)
[2024-05-04] MEDS ORDERED: Narcan 0.4 MG/ML IV PRN (15:52)
[2024-05-04] MEDS: Sodium Chloride 0.9% 1000 ML 1,000 ML IV SCH ×2 (16:25→16:35)
[2024-05-04] MEDS: NORCO 5/325 MG PO PRN (16:25)
[2024-05-04] MEDS ORDERED: Hydromorphone 1 mg/ml Injection IV PRN (16:57)
[2024-05-04] MEDS ORDERED: CEFAZOLIN 2 GM/100 ML NaCl 2 GM/100 ML IVPB IV SCH (17:00)
[2024-05-04] MEDS ORDERED: TRANEXAMIC 1,000 MG/100ML-NACL 1,000 MG/100 ML PIGGYBACK IV SCH (17:00)
[2024-05-04] MEDS: HUMALOG SQ PRN (18:15)
[2024-05-04] MEDS: Klor Con PO SCH (21:05)
[2024-05-04] MEDS: NORCO 7.5/325 MG TAB PO PRN (21:05)
[2024-05-04] MEDS ORDERED: KLONOPIN ONE (23:23)
[2024-05-04] MEDS: clonazePAM PO PRN (23:24)
[2024-05-05] MEDS: Hydromorphone 1 mg/ml Injection IV PRN ×3 (01:54→16:24)
--- NOTE | 2024-05-05 05:12 | PCM.NOTE ---
Date and Time: 05/05/24 0511 Subjective Assessment: is a 68 year old female with a pmhx of HTN, HLD, CAD (s/p bypass 5 years ago), DMII, and hypothyroid who presented to ED 05/04/24 for evaluation of hip pain after a fall at home. Patient states she was scraping ice off of her car when she slipped on ice and fell to her right side. No LOC. No trauma to her head. She describes her right hip pain as shooting/stabbing and rates the pain 5/10 on numerical pain scale. Pain is localized to the right hip. Denies fever,cough, sob, cp, abdominal pain, MERRITT, dizziness, N/V/D. Upon arrival to ED, vitals stable. HIP and femur xray showing demonstrates comminuted right intertrochanteric acute fracture with displaced lesser trochanter fracture fragment. CXR with no acute findings. Labs remarkable for hyperglycemia and mildly elevated LFTs. Patient was given ativan and demoral in ED. Dr. Sosa consulted in ED - plans for surgical intervention 05/05/24. 05/05/24: Met with patient bedside. Surgery planned today. Pain is controlled on current pain regimen. Would like OP PT on discharge. No other complaints this morning. - Review of Systems Constitutional: No Symptoms Eyes: No Symptoms Ears, Nose, & Throat: No Symptoms Respiratory: No Symptoms Cardiac: No Symptoms Abdominal/Gastrointestinal: No Symptoms Genitourinary Symptoms: No Symptoms Musculoskeletal: Joint Pain (right hip) Skin: No Symptoms Neurological: No Symptoms Psychological: No Symptoms Endocrine: No Symptoms Hematologic/Lymphatic: No Symptoms Immunological/Allergic: No Symptoms Objective Exam General Appearance: no apparent distress Neurologic Exam: alert, oriented x 3, cooperative Skin Exam: normal color Eye Exam: PERRL Ears, Nose, Throat Exam: normal ENT inspection Neck Exam: normal inspection Respiratory Exam: normal breath sounds, lungs clear Cardiovascular Exam: regular rate/rhythm, normal heart sounds Gastrointestinal/Abdomen Exam: soft, normal bowel sounds Extremity Exam: limited range of motion (right hip) Back Exam: normal inspection Pelvic Exam: deferred Rectal Exam: deferred Objective Data Vital Signs: Vital Signs - 24 hr Temp Pulse Resp BP BP Pulse Ox 05/05/24 04:00 97.7 F 70 20 156/72 94 L 05/05/24 00:00 97.0 F 71 18 129/65 93 L 05/04/24 20:00 98 F 78 18 165/76 95 05/04/24 14:00 78 18 119/72 95 05/04/24 13:45 95 05/04/24 13:30 113/59 95 05/04/24 13:20 89 L 05/04/24 13:10 91 L 05/04/24 13:03 93 L 05/04/24 12:31 142/57 97 05/04/24 12:30 97 05/04/24 12:20 94 L 05/04/24 12:19 96 05/04/24 11:30 136/60 05/04/24 11:11 96.7 F 72 18 131/69 95 05/04/24 11:10 131/69 91 L Pain Assessment - Last Documented Pain Intensity [Right Hip] 9 Pain Intensity 10 Pain Scale Used 0-10 Pain Scale Intake and Output: Intake & Output 05/02/24 05/03/24 05/04/24 05/05/24 11:59 11:59 11:59 11:59 Intake Total 1564 Output Total 850 Balance 714 Weight 102 kg 91.2 kg Lab Results: Lab Results-Last 24 Hours 05/04/24 05/04/24 05/04/24 Range/Units 12:57 12:57 12:57 WBC 7.3 (3.98-10.04) x10^3/uL RBC 4.55 (3.93-5.22) x10^6/uL Hgb 14.3 (11.2-15.7) g/dL Hct 41.1 (34.1-44.9) % MCV 90.3 (79.4-94.8) fL MCH 31.4 (25.6-32.2) pg MCHC 34.8 (32.2-35.5) g/dL RDW 12.2 (11.7-14.4) % Plt Count 209 (182-369) x10^3/uL MPV 9.2 L (9.4-12.3) fL Gran % 81.6 H (34.0-71.1) % Immature Gran % (Auto) 0.7 H (0.001-0.429) % Nucleat RBC Rel Count 0.0 (0.00-0.2) % Eos # (Auto) 0.04 (0.04-0.36) x10^3/uL Immature Gran # (Auto) 0.05 H (0.001-0.031) x10^3u/L Absolute Lymphs (auto) 0.80 L (1.18-3.74) x10^3/uL Absolute Monos (auto) 0.43 (0.24-0.86) x10^3/uL Absolute Nucleated RBC 0.00 (0.00-0.012) x10^3u/L Lymphocytes % 10.9 L (19.3-51.7) % Monocytes % 5.9 (4.7-12.5) % Eosinophils % 0.5 L (0.7-5.8) % Basophils % 0.4 (0.1-1.2) % Absolute Granulocytes 5.99 (1.56-6.13) x10^3/uL Basophils # 0.03 (0.01-0.08) x10^3/uL PT 10.7 (9.4-12.5) SECONDS INR 0.98 (0.8-3.0) Sodium 135 (135-145) mmol/L Potassium 4.2 (3.5-5.1) mmol/L Chloride 98 (98-107) mmol/L Carbon Dioxide 23 (22-30) mmol/L Anion Gap 18.2 H (5-15) MEQ/L BUN 15 (7-17) mg/dL Creatinine 0.45 L (0.52-1.04) mg/dL Estimated GFR 104.7 ML/MIN Glucose 331 H (74-106) mg/dL POC Glucometer (74 to 106) mg/dL Calcium 9.6 (8.4-10.2) mg/dL Total Bilirubin 0.80 (0.2-1.3) mg/dL AST 37 H (14-36) U/L ALT 38 H (0-35) U/L Alkaline Phosphatase 102 (38-126) U/L Serum Total Protein 7.5 (6.3-8.2) g/dL Albumin 4.7 (3.5-5.0) g/dL Prealbumin (17.6-36.0) mg/dL 05/04/24 05/04/24 05/04/24 Range/Units 12:57 16:45 21:07 WBC (3.98-10.04) x10^3/uL RBC (3.93-5.22) x10^6/uL Hgb (11.2-15.7) g/dL Hct (34.1-44.9) % MCV (79.4-94.8) fL MCH (25.6-32.2) pg MCHC (32.2-35.5) g/dL RDW (11.7-14.4) % Plt Count (182-369) x10^3/uL MPV (9.4-12.3) fL Gran % (34.0-71.1) % Immature Gran % (Auto) (0.001-0.429) % Nucleat RBC Rel Count (0.00-0.2) % Eos # (Auto) (0.04-0.36) x10^3/uL Immature Gran # (Auto) (0.001-0.031) x10^3u/L Absolute Lymphs (auto) (1.18-3.74) x10^3/uL Absolute Monos (auto) (0.24-0.86) x10^3/uL Absolute Nucleated RBC (0.00-0.012) x10^3u/L Lymphocytes % (19.3-51.7) % Monocytes % (4.7-12.5) % Eosinophils % (0.7-5.8) % Basophils % (0.1-1.2) % Absolute Granulocytes (1.56-6.13) x10^3/uL Basophils # (0.01-0.08) x10^3/uL PT (9.4-12.5) SECONDS INR (0.8-3.0) Sodium (135-145) mmol/L Potassium (3.5-5.1) mmol/L Chloride (98-107) mmol/L Carbon Dioxide (22-30) mmol/L Anion Gap (5-15) MEQ/L BUN (7-17) mg/dL Creatinine (0.52-1.04) mg/dL Estimated GFR ML/MIN Glucose (74-106) mg/dL POC Glucometer 328 H 276 H (74 to 106) mg/dL Calcium (8.4-10.2) mg/dL Total Bilirubin (0.2-1.3) mg/dL AST (14-36) U/L ALT (0-35) U/L Alkaline Phosphatase (38-126) U/L Serum Total Protein (6.3-8.2) g/dL Albumin (3.5-5.0) g/dL Prealbumin 25.69 (17.6-36.0) mg/dL Radiology Exams: Radiology Procedures Category Date Time Status CHEST 1 VIEW (PORTABLE) Stat Exams 05/04/24 13:23 Completed FEMUR Stat Exams 05/04/24 11:38 Completed HIP UNI (2V) INCL PEL IF DONE Stat Exams 05/04/24 11:38 Completed Assessment/Plan (1) Closed right hip fracture Current Visit: Yes Status: Acute Assessment & Plan: -Hip and femur xray reviewed demonstrating comminuted right intertrochanteric acute fracture with displaced lesser trochanter fracture fragment -Dr. Sosa - ortho consulted - plans for surgery 05/05/24 -NPO after midnight -Pain control -PT after surgery 05/05: -CMP/CBC reviewed -continue pain control -PT after surgery -Patient requesting OP PT on discharge Code(s): S72.001A - FRACTURE OF UNSP PART OF NECK OF RIGHT FEMUR, INIT (2) Type 2 diabetes mellitus Current Visit: Yes Status: Acute Assessment & Plan: -Patient currently NPO for surgery - ADA diet after surgery -SSI -A1C at 8.61 (3) HLD (hyperlipidemia) Current Visit: Yes Status: Acute Assessment & Plan: -continue home statin Code(s): E78.5 - HYPERLIPIDEMIA, UNSPECIFIED (4) Hypertension Current Visit: No Status: Acute Assessment & Plan: -BP stable - continue home meds VTE: hold for surgery PPI: protonix Dispo 1-2 days Code(s): S72.001A - FRACTURE OF UNSP PART OF NECK OF RIGHT FEMUR, INIT (2) Type 2 diabetes mellitus Current Visit: Yes Status: Acute (3) HLD (hyperlipidemia) Current Visit: Yes Status: Acute Code(s): E78.5 - HYPERLIPIDEMIA, UNSPECIFIED (4) Hypertension Current Visit: No Status: Acute Code(s): I10 - ESSENTIAL (PRIMARY) HYPERTENSION
[2024-05-05 05:15] LABS: Absolute Neutrophil Ct (ANC) 6.23 x10^3/uL (1.56-6.13); BASOPHIL % 0.3 % (0.1-1.2); Basophil (Absolute #) 0.02 x10^3/uL (0.01-0.08); Eosinophil % 0.1 % (0.7-5.8); Eosinophil (Absolute #) 0.01 x10^3/uL (0.04-0.36); Hemoglobin 13.3 g/dL (11.2-15.7); IMMATURE GRAN # 0.02 x10^3u/L (0.001-0.031); IMMATURE GRAN % 0.3 % (0.001-0.429); Lymphocyte (Absolute #) 1.09 x10^3/uL (1.18-3.74); Lymphocytes % 13.7 % (19.3-51.7); Mean Cell Volume 89.9 fL (79.4-94.8); Mean Corpuscular Hemoglobin 30.6 pg (25.6-32.2); Mean Corpuscular Hgb Concent. 34.1 g/dL (32.2-35.5); Mean Platelet Volume 9.7 fL (9.4-12.3); Monocyte (Absolute #) 0.59 x10^3/uL (0.24-0.86); Monocytes % 7.4 % (4.7-12.5); Neutrophil % 78.2 % (34.0-71.1); Platelet Count 222 x10^3/uL (182-369); Red Blood Count 4.34 x10^6/uL (3.93-5.22); Red Cell Distribution Width 12.3 % (11.7-14.4)
[2024-05-05 05:29] LABS: ALBUMIN 4.4 g/dL (3.5-5.0); ANION GAP 16.2 MEQ/L (5-15); Calcium 9.3 mg/dL (8.4-10.2); Creatinine 1 0.42 mg/dL (0.52-1.04); EST GLOMERULAR FILTRATION RATE 106.5 ML/MIN; Potassium 4.1 mmol/L (3.5-5.1); Total Protein 7.2 g/dL (6.3-8.2)
[2024-05-05] MEDS ORDERED: CEFAZOLIN 2 GM/100 ML NaCl 2 GM/100 ML IVPB IV SCH (10:45)
[2024-05-05] MEDS: SYNTHROID 50 MCG PO SCH (11:18)
[2024-05-05] MEDS: Protonix 40MG Tablet PO SCH (11:18)
[2024-05-05] MEDS: Lopressor 25MG Tab PO SCH (11:18)
[2024-05-05] MEDS: MEDICATION ON HOLD MC SCH (11:23)
--- NOTE | 2024-05-05 11:28 | CONS ---
DETAILS OF EVALUATION: The patient was seen in exam and chart was reviewed. The patient is a 68-year-old female who fell at home today landing on her right hip. Was seen in the emergency room and noted to have a displaced intertrochanteric fracture of the right hip. Orthopedic consultation was requested and patient was admitted to internal medicine today. PAST MEDICAL HISTORY: She has a significant medical history which is positive for coronary artery disease, hypertension, diabetes, and hypercholesterolemia. PAST SURGICAL HISTORY: Significant for coronary bypass graft. The patient was seen and examined. Her chart was reviewed. PHYSICAL EXAMINATION: VITAL SIGNS: The patient is afebrile. Blood pressure is 120/72 with a pulse of 78, respirations are 18, O2 saturation is 95%. MUSCULOSKELETAL: The patient has a shortened, externally rotated right lower extremity. CMS is intact to the right lower extremity. There is pain to palpation over the right hip with any motion of the right hip. Pulses are +2/4 to dorsalis pedis and posterior tibial. Motor function and sensory function is intact. DIAGNOSTIC DATA: Hemoglobin is 14.3 with a hematocrit of 41.1. PT 10.7/INR 0.098. X-rays show an intertrochanteric fracture of the right hip with some displacement. IMPRESSION: Intertrochanteric fracture, right hip. RECOMMENDATIONS AND PLAN: An informed consent was given and signed. The patient understands the inherent risk, benefits, complications and alternatives, as well as no guarantees to outcome. Patient will be scheduled for an intramedullary nailing of the right hip tomorrow. Preoperative orders were written.
[2024-05-05] MEDS ORDERED: SUBLIMAZE 100 MCG/2 ML ONE ×3 (11:49→13:48)
[2024-05-05] MEDS ORDERED: Zofran 4 MG/2 ML VIAL ONE (12:30)
[2024-05-05] MEDS ORDERED: ROCURONIUM BROMIDE IV ONE (12:30)
[2024-05-05] MEDS ORDERED: propofoL IV ONE (12:30)
[2024-05-05] MEDS ORDERED: dexAMETHasone sodium phosphate ONE (12:30)
[2024-05-05] MEDS ORDERED: BRIDION 200MG/2ML IV ONE (13:05)
--- NOTE | 2024-05-05 13:33 | XRAY ---
Indication: Right hip nail. Intraoperative fluoroscopy provided for 2 minutes 31 seconds. 19 digital spot images submitted for interpretation ultimately demonstrates gamma nail and intramedullary junior fixating right intratrochanteric fracture. Correlate with intraoperative findings/report.
[2024-05-05] MEDS ORDERED: Hydromorphone 1 mg/ml Injection ONE ×2 (13:48→14:17)
--- NOTE | 2024-05-05 14:47 | XRAY ---
Two minutes and 31 seconds of fluoroscopy was used in surgery for a right hip nail.
[2024-05-05] MEDS: Zetia 10 MG PO SCH (16:46)
[2024-05-05] MEDS: LASIX 20 MG PO SCH (16:46)
[2024-05-05] MEDS: ZOCOR 20MG PO SCH (16:46)
[2024-05-05] MEDS: Glucophage 850 MG PO SCH (17:09)
[2024-05-05] MEDS: Sodium Chloride 0.9% 1000 ML 1,000 ML IV SCH (17:25)
[2024-05-05] MEDS: Advair Hfa 115/21 Common canister IH SCH (18:37)
[2024-05-05] MEDS: CEFAZOLIN 2 GM/100 ML NaCl 2 GM/100 ML IVPB IV SCH (20:23)
[2024-05-05] MEDS: NORCO 5/325 MG PO PRN (22:32)
--- NOTE | 2024-05-06 04:59 | PCM.NOTE ---
Date and Time: 05/06/24 0458 Subjective Assessment: is a 68 year old female with a pmhx of HTN, HLD, CAD (s/p bypass 5 years ago), DMII, and hypothyroid who presented to ED 05/04/24 for evaluation of hip pain after a fall at home. Patient states she was scraping ice off of her car when she slipped on ice and fell to her right side. No LOC. No trauma to her head. She describes her right hip pain as shooting/stabbing and rates the pain 5/10 on numerical pain scale. Pain is localized to the right hip. Denies fever,cough, sob, cp, abdominal pain, MERRITT, dizziness, N/V/D. Upon arrival to ED, vitals stable. HIP and femur xray showing demonstrates comminuted right intertrochanteric acute fracture with displaced lesser trochanter fracture fragment. CXR with no acute findings. Labs remarkable for hyperglycemia and mildly elevated LFTs. Patient was given ativan and demoral in ED. Dr. Sosa consulted in ED - plans for surgical intervention 05/05/24. 05/05/24: Met with patient bedside. Surgery planned today. Pain is controlled on current pain regimen. Would like OP PT on discharge. No other complaints this morning. 05/06/24: Met with patient bedside. S/Pi ntramedullary nailing of the right hip. Endorses pain to right hip 5/10 on numerical pain scale. Patient requiring 3L of oxygen. States she is not short of breath or cough. No chest pain. Will obtain CXR today. - Review of Systems Constitutional: No Symptoms Eyes: No Symptoms Ears, Nose, & Throat: No Symptoms Respiratory: No Symptoms Cardiac: No Symptoms Abdominal/Gastrointestinal: No Symptoms Genitourinary Symptoms: No Symptoms Musculoskeletal: No Symptoms Skin: No Symptoms Neurological: No Symptoms Psychological: No Symptoms Endocrine: No Symptoms Hematologic/Lymphatic: No Symptoms Immunological/Allergic: No Symptoms Objective Exam General Appearance: no apparent distress Neurologic Exam: alert, oriented x 3, cooperative Skin Exam: normal color Wound Assessment: Skin/Wound Assessment Wound/Incision Assessment Start: 05/04/24 15:30 Text: Status: Active Freq: Q6H Protocol: Document 05/06/24 04:00 LB (Rec: 05/06/24 04:32 LB [id number]) Wound/Incision Assessment RIGHT LATERAL HIP Wound Assessment Shift Assessment Wound Type Incision Wound Stage Non Pressure Wound Dressing Status Dry & Intact Drainage Amount None Drainage Odor None/Absent Packing Type Gauze Pads Primary Dressing Gauze Pads Secondary Dressing tegaderm Comment 3 INCISION SITES, GAUZE COVERED WITH TEGADERM, CLEAN DRY AND INTACT. Wound Photo Photo Taken No Eye Exam: PERRL Ears, Nose, Throat Exam: normal ENT inspection Neck Exam: normal inspection Respiratory Exam: normal breath sounds, lungs clear Cardiovascular Exam: regular rate/rhythm, normal heart sounds Gastrointestinal/Abdomen Exam: soft, normal bowel sounds Extremity Exam: normal inspection Back Exam: normal inspection Pelvic Exam: deferred Rectal Exam: deferred Objective Data Vital Signs: Vital Signs - 24 hr Temp Pulse Resp BP Pulse Ox 05/06/24 04:00 20 90 L 05/06/24 02:24 90 L 05/06/24 01:01 20 05/06/24 00:00 98.3 F 74 20 118/66 96 05/05/24 23:25 95 05/05/24 22:45 92 L 05/05/24 22:37 96 05/05/24 21:01 17 05/05/24 20:00 96 05/05/24 18:57 93 L 05/05/24 18:40 81 20 97 05/05/24 16:00 97.6 F 80 20 154/88 97 05/05/24 15:56 73 16 93 L 05/05/24 12:00 98.0 F 73 20 163/81 92 L 05/05/24 10:18 97.7 F 77 22 173/85 94 L 05/05/24 08:00 97.7 F 77 22 173/85 94 L Pain Assessment - Last Documented Pain Intensity [Right Hip] 9 Pain Intensity 4 Pain Scale Used 0-10 Pain Scale Intake and Output: Intake & Output 05/03/24 05/04/24 05/05/24 05/06/24 11:59 11:59 11:59 11:59 Intake Total 1564 960 Output Total 1325 300 Balance 239 660 Weight 102 kg 92.7 kg Lab Results: Lab Results-Last 24 Hours 05/05/24 05/05/24 05/05/24 Range/Units 04:40 04:40 04:40 WBC 8.0 (3.98-10.04) x10^3/uL RBC 4.34 (3.93-5.22) x10^6/uL Hgb 13.3 (11.2-15.7) g/dL Hct 39.0 (34.1-44.9) % MCV 89.9 (79.4-94.8) fL MCH 30.6 (25.6-32.2) pg MCHC 34.1 (32.2-35.5) g/dL RDW 12.3 (11.7-14.4) % Plt Count 222 (182-369) x10^3/uL MPV 9.7 (9.4-12.3) fL Gran % 78.2 H (34.0-71.1) % Immature Gran % (Auto) 0.3 (0.001-0.429) % Nucleat RBC Rel Count 0.0 (0.00-0.2) % Eos # (Auto) 0.01 L (0.04-0.36) x10^3/uL Immature Gran # (Auto) 0.02 (0.001-0.031) x10^3u/L Absolute Lymphs (auto) 1.09 L (1.18-3.74) x10^3/uL Absolute Monos (auto) 0.59 (0.24-0.86) x10^3/uL Absolute Nucleated RBC 0.00 (0.00-0.012) x10^3u/L Lymphocytes % 13.7 L (19.3-51.7) % Monocytes % 7.4 (4.7-12.5) % Eosinophils % 0.1 L (0.7-5.8) % Basophils % 0.3 (0.1-1.2) % Absolute Granulocytes 6.23 H (1.56-6.13) x10^3/uL Basophils # 0.02 (0.01-0.08) x10^3/uL Sodium 134 L (135-145) mmol/L Potassium 4.1 (3.5-5.1) mmol/L Chloride 98 (98-107) mmol/L Carbon Dioxide 24 (22-30) mmol/L Anion Gap 16.2 H (5-15) MEQ/L BUN 12 (7-17) mg/dL Creatinine 0.42 L (0.52-1.04) mg/dL Estimated GFR 106.5 ML/MIN Glucose 252 H (74-106) mg/dL POC Glucometer (74 to 106) mg/dL Hemoglobin A1c 8.61 H (4.5-6.0) % Calcium 9.3 (8.4-10.2) mg/dL Total Bilirubin 1.00 (0.2-1.3) mg/dL AST 31 (14-36) U/L ALT 32 (0-35) U/L Alkaline Phosphatase 85 (38-126) U/L Serum Total Protein 7.2 (6.3-8.2) g/dL Albumin 4.4 (3.5-5.0) g/dL 05/05/24 05/05/24 05/05/24 Range/Units 07:41 11:13 13:59 WBC (3.98-10.04) x10^3/uL RBC (3.93-5.22) x10^6/uL Hgb (11.2-15.7) g/dL Hct (34.1-44.9) % MCV (79.4-94.8) fL MCH (25.6-32.2) pg MCHC (32.2-35.5) g/dL RDW (11.7-14.4) % Plt Count (182-369) x10^3/uL MPV (9.4-12.3) fL Gran % (34.0-71.1) % Immature Gran % (Auto) (0.001-0.429) % Nucleat RBC Rel Count (0.00-0.2) % Eos # (Auto) (0.04-0.36) x10^3/uL Immature Gran # (Auto) (0.001-0.031) x10^3u/L Absolute Lymphs (auto) (1.18-3.74) x10^3/uL Absolute Monos (auto) (0.24-0.86) x10^3/uL Absolute Nucleated RBC (0.00-0.012) x10^3u/L Lymphocytes % (19.3-51.7) % Monocytes % (4.7-12.5) % Eosinophils % (0.7-5.8) % Basophils % (0.1-1.2) % Absolute Granulocytes (1.56-6.13) x10^3/uL Basophils # (0.01-0.08) x10^3/uL Sodium (135-145) mmol/L Potassium (3.5-5.1) mmol/L Chloride (98-107) mmol/L Carbon Dioxide (22-30) mmol/L Anion Gap (5-15) MEQ/L BUN (7-17) mg/dL Creatinine (0.52-1.04) mg/dL Estimated GFR ML/MIN Glucose (74-106) mg/dL POC Glucometer 210 H 270 H 234 H (74 to 106) mg/dL Hemoglobin A1c (4.5-6.0) % Calcium (8.4-10.2) mg/dL Total Bilirubin (0.2-1.3) mg/dL AST (14-36) U/L ALT (0-35) U/L Alkaline Phosphatase (38-126) U/L Serum Total Protein (6.3-8.2) g/dL Albumin (3.5-5.0) g/dL 05/05/24 05/05/24 Range/Units 16:37 21:47 WBC (3.98-10.04) x10^3/uL RBC (3.93-5.22) x10^6/uL Hgb (11.2-15.7) g/dL Hct (34.1-44.9) % MCV (79.4-94.8) fL MCH (25.6-32.2) pg MCHC (32.2-35.5) g/dL RDW (11.7-14.4) % Plt Count (182-369) x10^3/uL MPV (9.4-12.3) fL Gran % (34.0-71.1) % Immature Gran % (Auto) (0.001-0.429) % Nucleat RBC Rel Count (0.00-0.2) % Eos # (Auto) (0.04-0.36) x10^3/uL Immature Gran # (Auto) (0.001-0.031) x10^3u/L Absolute Lymphs (auto) (1.18-3.74) x10^3/uL Absolute Monos (auto) (0.24-0.86) x10^3/uL Absolute Nucleated RBC (0.00-0.012) x10^3u/L Lymphocytes % (19.3-51.7) % Monocytes % (4.7-12.5) % Eosinophils % (0.7-5.8) % Basophils % (0.1-1.2) % Absolute Granulocytes (1.56-6.13) x10^3/uL Basophils # (0.01-0.08) x10^3/uL Sodium (135-145) mmol/L Potassium (3.5-5.1) mmol/L Chloride (98-107) mmol/L Carbon Dioxide (22-30) mmol/L Anion Gap (5-15) MEQ/L BUN (7-17) mg/dL Creatinine (0.52-1.04) mg/dL Estimated GFR ML/MIN Glucose (74-106) mg/dL POC Glucometer 279 H 270 H (74 to 106) mg/dL Hemoglobin A1c (4.5-6.0) % Calcium (8.4-10.2) mg/dL Total Bilirubin (0.2-1.3) mg/dL AST (14-36) U/L ALT (0-35) U/L Alkaline Phosphatase (38-126) U/L Serum Total Protein (6.3-8.2) g/dL Albumin (3.5-5.0) g/dL Radiology Exams: Radiology Procedures Category Date Time Status CHEST 1 VIEW (PORTABLE) Stat Exams 05/04/24 13:23 Completed FEMUR Stat Exams 05/04/24 11:38 Completed FLUOROSCOPY UP TO 1 HR Routine Exams 05/05/24 06:58 Completed HIP UNI (2V) INCL PEL IF DONE Routine Exams 05/05/24 06:58 Completed HIP UNI (2V) INCL PEL IF DONE Stat Exams 05/04/24 11:38 Completed Multi-Disciplinary Progress Notes: Multi-Disciplinary Progress Notes 05/05/24 17:16 Physical Therapy Note by Jocelyn(Kit#[id number])Shebly SPOKE W/ CRISTIANE ESPINOSA THIS P.M. RE: ACTIVITY AND MOBILITY. PT. ON 5 L O2 AND NOT RESPONSIVE ENOUGH TO TRANSFER TODAY. WILL EVAL FOR P.T. IN THE A.M. AND PROVIDE MOBILITY RECOMMENDATIONS AT THAT TIME. Initialized on 05/05/24 17:16 - END OF NOTE Assessment/Plan (1) Closed right hip fracture Current Visit: Yes Status: Acute Assessment & Plan: -Hip and femur xray reviewed demonstrating comminuted right intertrochanteric acute fracture with displaced lesser trochanter fracture fragment -Dr. Sosa - ortho consulted - plans for surgery 05/05/24 -NPO after midnight -Pain control -PT after surgery 05/05: -CMP/CBC reviewed -continue pain control -PT after surgery -Patient requesting OP PT on discharge 05/06: -Pain control - PT eval - pt is wanting rehab stay -CM looking into this Code(s): S72.001A - FRACTURE OF UNSP PART OF NECK OF RIGHT FEMUR, INIT (2) Type 2 diabetes mellitus Current Visit: Yes Status: Acute Assessment & Plan: -Patient currently NPO for surgery - ADA diet after surgery -SSI -A1C at 8.61 (3) HLD (hyperlipidemia) Current Visit: Yes Status: Acute Assessment & Plan: -continue home statin Code(s): E78.5 - HYPERLIPIDEMIA, UNSPECIFIED (4) Hypertension Current Visit: No Status: Acute Assessment & Plan: -BP stable - continue home meds VTE: hold for surgery PPI: protonix Dispo 1-2 days Code(s): S72.001A - FRACTURE OF UNSP PART OF NECK OF RIGHT FEMUR, INIT (2) Type 2 diabetes mellitus Current Visit: Yes Status: Acute (3) HLD (hyperlipidemia) Current Visit: Yes Status: Acute Code(s): E78.5 - HYPERLIPIDEMIA, UNSPECIFIED (4) Hypertension Current Visit: No Status: Acute Code(s): I10 - ESSENTIAL (PRIMARY) HYPERTENSION
[2024-05-06 05:29] LABS: Absolute Neutrophil Ct (ANC) 5.26 x10^3/uL (1.56-6.13); BASOPHIL % 0.3 % (0.1-1.2); Basophil (Absolute #) 0.02 x10^3/uL (0.01-0.08); Eosinophil % 0.1 % (0.7-5.8); Eosinophil (Absolute #) 0.01 x10^3/uL (0.04-0.36); Hematocrit 33.8 % (34.1-44.9); Hemoglobin 11.6 g/dL (11.2-15.7); IMMATURE GRAN # 0.02 x10^3u/L (0.001-0.031); IMMATURE GRAN % 0.3 % (0.001-0.429); Lymphocyte (Absolute #) 1.42 x10^3/uL (1.18-3.74); Lymphocytes % 18.7 % (19.3-51.7); Mean Cell Volume 91.4 fL (79.4-94.8); Mean Corpuscular Hemoglobin 31.4 pg (25.6-32.2); Mean Corpuscular Hgb Concent. 34.3 g/dL (32.2-35.5); Mean Platelet Volume 9.6 fL (9.4-12.3); Monocyte (Absolute #) 0.86 x10^3/uL (0.24-0.86); Monocytes % 11.3 % (4.7-12.5); Neutrophil % 69.3 % (34.0-71.1); Platelet Count 202 x10^3/uL (182-369); Red Cell Distribution Width 12.2 % (11.7-14.4); White Blood Count 7.6 x10^3/uL (3.98-10.04)
[2024-05-06] MEDS ORDERED: AMARYL 4 MG PO SCH (08:00)
[2024-05-06] MEDS: TYLENOL 325 MG PO PRN (08:12)
[2024-05-06] MEDS: PLAVIX Tablet PO SCH (09:05)
--- NOTE | 2024-05-06 12:24 | OP ---
SURGERY DATE/TIME: 05/05/2024 [id number] PREOPERATIVE DIAGNOSIS: Displaced intertrochanteric fracture of the right hip. POSTOPERATIVE DIAGNOSIS: Displaced intertrochanteric fracture of the right hip. PROCEDURE: Intramedullary trochanteric femoral nailing, right hip, utilizing the DePuy instrumentation, a 125 degree x 13 mm x 180 mm nail, a 10.5 mm x 100 mm lag screw, and a 5.0 x 38 mm cross locking screw. SURGEON: Oswaldo Soas II, DO. ANESTHESIA: General. DESCRIPTION OF PROCEDURE AND FINDINGS: The patient was identified. Informed consent was obtained. The patient was taken to the operative suite and given a general anesthetic, placed in the supine position on the fracture table after an appropriate level of anesthesia had been obtained. At this point, the patient was then appropriately positioned in the fracture table. The fracture was reduced by distraction, slight internal rotation, and adduction. An excellent reduction was noted on the AP and lateral images of the C-arm image intensifier. The hip was then prepped and draped in the usual sterile fashion. A standard time-out was taken. Small stab wound incision was carried out from the tip of the greater trochanter proximally for a distance of about 3 to 4 cm. Skin was incised and dissection was carried out to the fascia which was split. The curved cannulated awl was placed against the tip of the greater trochanter just lateral to the crest. The guide pin was then placed. Reaming was accomplished distally to a size 13 mm and 15 mm proximally. At this point, the IM nail was inserted and fully seated. The guide pin was removed. Small stab wound was accomplished laterally for position of the replacement of the lag screw, which was then placed being slightly inferior to the equator and slightly posterior to the equator on the lateral view and inferior to the equator on the AP view. Guide pin was placed and measured. The step drill was utilized to drill for the lag screw, which was drilled to 105 mm depth. The lag screw was then placed and fully seated. The set screw was then placed and backed off a quarter turn. At this point, distal cross locking was accomplished after making a small stab wound incision. Guides were placed against the lateral cortex of the femur, drilling across both cortices. It was then measured and deemed that a 38 mm cross locking screw was the appropriate size. This was then inserted and fully seated. At this point, the entire construct was viewed on both the AP and lateral images and noted to have an excellent reduction of the fracture fragment with the internal fixation in good position. At this point, the wounds were irrigated. The proximal wound was closed with #1 Vicryl and sarina. Small stab wounds were closed with sarina. Adaptic, 4 x 4's, and a sterile dressing applied. The patient was transferred to the bed and taken to the recovery room in satisfactory condition, having tolerated the procedure well.
--- NOTE | 2024-05-06 12:35 | XRAY ---
Indication: Short of breath. Comparison: May 04, 2024 Portable chest unchanged again demonstrating left mid to lower lung subsegmental atelectasis/scarring, borderline cardiomegaly with CABG, osteopenia, and mild multilevel thoracic degenerative spondylosis. No new/acute abnormalities.
[2024-05-06 12:39] LABS: ALBUMIN 3.9 g/dL (3.5-5.0); ANION GAP 15.2 MEQ/L (5-15); BILIRUBIN,TOTAL 0.9 mg/dL (0.2-1.3); Calcium 8.9 mg/dL (8.4-10.2); Creatinine 1 0.5 mg/dL (0.52-1.04); EST GLOMERULAR FILTRATION RATE 102.1 ML/MIN; Total Protein 6.6 g/dL (6.3-8.2)
[2024-05-06] MEDS: Docusate Sodium 100 MG PO PRN (17:02)
[2024-05-07 05:15] LABS: Absolute Neutrophil Ct (ANC) 4.06 x10^3/uL (1.56-6.13); BASOPHIL % 0.3 % (0.1-1.2); Basophil (Absolute #) 0.02 x10^3/uL (0.01-0.08); Eosinophil % 1.3 % (0.7-5.8); Eosinophil (Absolute #) 0.08 x10^3/uL (0.04-0.36); Hematocrit 30.5 % (34.1-44.9); Hemoglobin 10.7 g/dL (11.2-15.7); IMMATURE GRAN # 0.02 x10^3u/L (0.001-0.031); IMMATURE GRAN % 0.3 % (0.001-0.429); Lymphocyte (Absolute #) 1.32 x10^3/uL (1.18-3.74); Lymphocytes % 21.1 % (19.3-51.7); Mean Cell Volume 90.8 fL (79.4-94.8); Mean Corpuscular Hemoglobin 31.8 pg (25.6-32.2); Mean Corpuscular Hgb Concent. 35.1 g/dL (32.2-35.5); Mean Platelet Volume 9.5 fL (9.4-12.3); Monocyte (Absolute #) 0.75 x10^3/uL (0.24-0.86); Platelet Count 184 x10^3/uL (182-369); Red Blood Count 3.36 x10^6/uL (3.93-5.22); Red Cell Distribution Width 12.5 % (11.7-14.4); White Blood Count 6.3 x10^3/uL (3.98-10.04)
[2024-05-07 05:30] LABS: ALBUMIN 3.9 g/dL (3.5-5.0); ANION GAP 12.5 MEQ/L (5-15); BILIRUBIN,TOTAL 0.9 mg/dL (0.2-1.3); Calcium 8.8 mg/dL (8.4-10.2); Creatinine 1 0.47 mg/dL (0.52-1.04); EST GLOMERULAR FILTRATION RATE 103.6 ML/MIN; Potassium 3.6 mmol/L (3.5-5.1); Total Protein 6.6 g/dL (6.3-8.2)
[2024-05-07] MEDS: TYLENOL EXTRA STRENGTH 500 MG PO PRN (07:47)
[2024-05-07 10:02] VITALS: BP 144/70; PULSE 81; RESP 20; TEMP 97.3; O2SAT 95
--- NOTE | 2024-05-07 10:52 | PCM.DS ---
Discharge Summary Date of Admission: 05/04/24 14:55 Date of Discharge: 05/07/24 Admitting Physician: HAFSA KEN MD Consults: Consults on Case 05/04/24 15:00 Consult Ortho ROUTINE Primary Care Provider: ZAYNAB SANCHEZ Allergies Allergies adhesive tape Allergy (Verified 05/04/24 11:12) [facility] Summary - Hospital Course Hospital Course: Ms. Otero is a 68-year-old female with a medical history of hypertension, hyperlipidemia, coronary artery disease (status post bypass surgery five years ago), type 2 diabetes mellitus, and hypothyroidism. She presented to the ED on 05/04/24 for evaluation of right hip pain after a fall at home. She slipped on ice while scraping it off her car and fell to her right side. She described her right hip pain as shooting/stabbing, rating it 5/10 on the pain scale. There was no loss of consciousness or trauma to her head, and she denied fever, cough, shortness of breath, chest pain, abdominal pain, headache, dizziness, nausea, vomiting, or diarrhea. X-rays revealed a comminuted right intertrochanteric acute fracture with a displaced lesser trochanter fracture fragment. Her labs showed hyperglycemia and mildly elevated liver function tests. She was given Ativan and Demerol in the ED for pain control. Dr. Sosa was consulted, and surgery was planned for 05/05/24. On 05/05/24, the patient underwent intramedullary nailing of the right hip. Her pain was well-controlled, and no other complaints were noted. She was advised to follow up with outpatient physical therapy upon discharge. On 05/06/24, she reported pain to the right hip at 2/10 on the pain scale. She required 3L of oxygen but was not short of breath or coughing. A chest X-ray showed left mid to lower lung subsegmental atelectasis and scarring. The patient is now stable, with her pain well-controlled and no further complications. She is ready for discharge to [place] for rehabilitation, where she will continue her recovery. She will follow up with outpatient physical therapy and continue to monitor her progress. - Vitals & Intake/Output Vital Signs: Vital Signs Temperature 97.3 F 05/07/24 08:00 Pulse Rate 81 05/07/24 08:00 Respiratory Rate 20 05/07/24 08:00 Blood Pressure 144/70 05/07/24 08:00 O2 Sat by Pulse Oximetry 95 05/07/24 08:00 Intake & Output: Intake & Output 05/04/24 05/05/24 05/06/24 05/07/24 11:59 11:59 11:59 11:59 Intake Total 1564 1440 1980 Output Total 1325 1500 1000 Balance 239 -60 980 Weight 102 kg 92.7 kg 92.5 kg 92.5 kg - Lab Result Diagrams: 05/07/24 05:08 05/07/24 05:08 Lab Results-Last 24 Hrs: Lab Results-Last 24 Hours 05/06/24 05/06/24 05/06/24 Range/Units 05:16 11:39 15:51 WBC (3.98-10.04) x10^3/uL RBC (3.93-5.22) x10^6/uL Hgb (11.2-15.7) g/dL Hct (34.1-44.9) % MCV (79.4-94.8) fL MCH (25.6-32.2) pg MCHC (32.2-35.5) g/dL RDW (11.7-14.4) % Plt Count (182-369) x10^3/uL MPV (9.4-12.3) fL Gran % (34.0-71.1) % Immature Gran % (Auto) (0.001-0.429) % Nucleat RBC Rel Count (0.00-0.2) % Eos # (Auto) (0.04-0.36) x10^3/uL Immature Gran # (Auto) (0.001-0.031) x10^3u/L Absolute Lymphs (auto) (1.18-3.74) x10^3/uL Absolute Monos (auto) (0.24-0.86) x10^3/uL Absolute Nucleated RBC (0.00-0.012) x10^3u/L Lymphocytes % (19.3-51.7) % Monocytes % (4.7-12.5) % Eosinophils % (0.7-5.8) % Basophils % (0.1-1.2) % Absolute Granulocytes (1.56-6.13) x10^3/uL Basophils # (0.01-0.08) x10^3/uL Sodium 135 (135-145) mmol/L Potassium 4.0 (3.5-5.1) mmol/L Chloride 99 (98-107) mmol/L Carbon Dioxide 25 (22-30) mmol/L Anion Gap 15.2 H (5-15) MEQ/L BUN 11 (7-17) mg/dL Creatinine 0.50 L (0.52-1.04) mg/dL Estimated GFR 102.1 ML/MIN Glucose 203 H (74-106) mg/dL POC Glucometer 249 H 265 H (74 to 106) mg/dL Calcium 8.9 (8.4-10.2) mg/dL Total Bilirubin 0.90 (0.2-1.3) mg/dL AST 31 (14-36) U/L ALT 24 (0-35) U/L Alkaline Phosphatase 78 (38-126) U/L Serum Total Protein 6.6 (6.3-8.2) g/dL Albumin 3.9 (3.5-5.0) g/dL 05/06/24 05/07/24 05/07/24 Range/Units 23:13 05:08 05:08 WBC 6.3 (3.98-10.04) x10^3/uL RBC 3.36 L (3.93-5.22) x10^6/uL Hgb 10.7 L (11.2-15.7) g/dL Hct 30.5 L (34.1-44.9) % MCV 90.8 (79.4-94.8) fL MCH 31.8 (25.6-32.2) pg MCHC 35.1 (32.2-35.5) g/dL RDW 12.5 (11.7-14.4) % Plt Count 184 (182-369) x10^3/uL MPV 9.5 (9.4-12.3) fL Gran % 65.0 (34.0-71.1) % Immature Gran % (Auto) 0.3 (0.001-0.429) % Nucleat RBC Rel Count 0.0 (0.00-0.2) % Eos # (Auto) 0.08 (0.04-0.36) x10^3/uL Immature Gran # (Auto) 0.02 (0.001-0.031) x10^3u/L Absolute Lymphs (auto) 1.32 (1.18-3.74) x10^3/uL Absolute Monos (auto) 0.75 (0.24-0.86) x10^3/uL Absolute Nucleated RBC 0.00 (0.00-0.012) x10^3u/L Lymphocytes % 21.1 (19.3-51.7) % Monocytes % 12.0 (4.7-12.5) % Eosinophils % 1.3 (0.7-5.8) % Basophils % 0.3 (0.1-1.2) % Absolute Granulocytes 4.06 (1.56-6.13) x10^3/uL Basophils # 0.02 (0.01-0.08) x10^3/uL Sodium 134 L (135-145) mmol/L Potassium 3.6 (3.5-5.1) mmol/L Chloride 98 (98-107) mmol/L Carbon Dioxide 28 (22-30) mmol/L Anion Gap 12.5 (5-15) MEQ/L BUN 13 (7-17) mg/dL Creatinine 0.47 L (0.52-1.04) mg/dL Estimated GFR 103.6 ML/MIN Glucose 258 H (74-106) mg/dL POC Glucometer 271 H (74 to 106) mg/dL Calcium 8.8 (8.4-10.2) mg/dL Total Bilirubin 0.90 (0.2-1.3) mg/dL AST 28 (14-36) U/L ALT 21 (0-35) U/L Alkaline Phosphatase 74 (38-126) U/L Serum Total Protein 6.6 (6.3-8.2) g/dL Albumin 3.9 (3.5-5.0) g/dL 05/07/24 Range/Units 07:23 WBC (3.98-10.04) x10^3/uL RBC (3.93-5.22) x10^6/uL Hgb (11.2-15.7) g/dL Hct (34.1-44.9) % MCV (79.4-94.8) fL MCH (25.6-32.2) pg MCHC (32.2-35.5) g/dL RDW (11.7-14.4) % Plt Count (182-369) x10^3/uL MPV (9.4-12.3) fL Gran % (34.0-71.1) % Immature Gran % (Auto) (0.001-0.429) % Nucleat RBC Rel Count (0.00-0.2) % Eos # (Auto) (0.04-0.36) x10^3/uL Immature Gran # (Auto) (0.001-0.031) x10^3u/L Absolute Lymphs (auto) (1.18-3.74) x10^3/uL Absolute Monos (auto) (0.24-0.86) x10^3/uL Absolute Nucleated RBC (0.00-0.012) x10^3u/L Lymphocytes % (19.3-51.7) % Monocytes % (4.7-12.5) % Eosinophils % (0.7-5.8) % Basophils % (0.1-1.2) % Absolute Granulocytes (1.56-6.13) x10^3/uL Basophils # (0.01-0.08) x10^3/uL Sodium (135-145) mmol/L Potassium (3.5-5.1) mmol/L Chloride (98-107) mmol/L Carbon Dioxide (22-30) mmol/L Anion Gap (5-15) MEQ/L BUN (7-17) mg/dL Creatinine (0.52-1.04) mg/dL Estimated GFR ML/MIN Glucose (74-106) mg/dL POC Glucometer 279 H (74 to 106) mg/dL Calcium (8.4-10.2) mg/dL Total Bilirubin (0.2-1.3) mg/dL AST (14-36) U/L ALT (0-35) U/L Alkaline Phosphatase (38-126) U/L Serum Total Protein (6.3-8.2) g/dL Albumin (3.5-5.0) g/dL Micro Results-Entire Visit: Accuchecks Date 05/07/24 Date 05/07/24 Date 05/06/24 Time 23:00 Time 11:40 - Radiology Exams Ordered Rad Exams-Entire Visit: Radiology Procedures Category Date Time Status CHEST 1 VIEW (PORTABLE) Stat Exams 05/06/24 12:10 Completed - Procedures and Test Procedures and Tests throughout Hospitalization: Therapy Orders & Screens 05/05/24 15:30 PT Eval & Treat ( Order) ONCE Reason for Eval:: Post Op Intramullary Nailing Right Hip Diagnosis: Right hip fracture Incentive Spirometry [id number] Comment: Diagnosis: Right hip fracture 05/05/24 15:53 Oxygen Oxymask LPM 5 lpm Comment: Diagnosis: Right hip fracture 05/05/24 15:55 Respiratory Therapy Assessment DAILY Comment: Diagnosis: Right hip fracture Discharge Exam General Appearance: no apparent distress, alert Neurologic Exam: alert, oriented x 3, cooperative, normal mood/affect, nml cerebellar function, sensation nml, No motor deficits Eye Exam: PERRL, EOMI, eyes nml inspection Ears, Nose, Throat Exam: normal ENT inspection, pharynx normal, moist mucous membranes Neck Exam: normal inspection, non-tender, supple, full range of motion Respiratory Exam: normal breath sounds, lungs clear, No respiratory distress Cardiovascular Exam: regular rate/rhythm, normal heart sounds Gastrointestinal/Abdomen Exam: soft, No tenderness, No mass Pelvic Exam: deferred Rectal Exam: deferred Back Exam: normal inspection, normal range of motion, No CVA tenderness, No vertebral tenderness Extremity Exam: normal inspection, normal range of motion Skin Exam: normal color, warm, dry Wound Assessment: Skin/Wound Assessment Wound/Incision Assessment Start: 05/04/24 15:30 Text: Status: Active Freq: Q6H Protocol: Document 05/07/24 07:57 [facility] (Rec: 05/07/24 07:58 [facility] [id number]) Wound/Incision Assessment RIGHT LATERAL HIP Wound Assessment Shift Assessment Wound Type Incision Wound Stage Non Pressure Wound Dressing Status Dry & Intact Drainage Amount None Drainage Odor None/Absent Packing Type Gauze Pads Primary Dressing Gauze Pads Secondary Dressing tegaderm Comment 3 Incision sites, covered with gauze and tegaderm, drsg remain C/D/I. Unable to access wound. Wound Photo Photo Taken No Final Diagnosis/Problem List - Final Discharge Diagnosis/Problem (1) Closed right hip fracture Current Visit: Yes Status: Acute Assessment & Plan: -Hip and femur xray reviewed demonstrating comminuted right intertrochanteric acute fracture with displaced lesser trochanter fracture fragment -Dr. Sosa - ortho consulted - surgery 05/05/24 - Ortho note reviewed and agree with plan of care - Narcotic Pain control - PT eval - OP rehab at D/C Code(s): S72.001A - FRACTURE OF UNSP PART OF NECK OF RIGHT FEMUR, INIT (2) HLD (hyperlipidemia) Current Visit: Yes Status: Chronic Assessment & Plan: -continue home statin Code(s): E78.5 - HYPERLIPIDEMIA, UNSPECIFIED (3) Type 2 diabetes mellitus Current Visit: Yes Status: Chronic Assessment & Plan: - ADA diet -SSI -A1C at 8.61- uncontrolled (4) Hypertension Current Visit: No Status: Chronic Assessment & Plan: -BP stable - continue home meds Code(s): I10 - ESSENTIAL (PRIMARY) HYPERTENSION - Discharge Discharge Date: 05/07/24 (Rehab) Disposition: DC TO [facility] Condition: Stable Prescriptions: New Docusate Sodium 100 mg [Docusate Sodium 100 MG] 100 mg PO BID PRN PRN 10 Days #20 cap PRN Reason: Constipation Acetaminophen 500 mg [Tylenol Extra Strength 500 mg] 1 tab PO Q6H PRN PRN 10 Days #40 tablet PRN Reason: PAIN 1-3 OR FEVER >100.4 Continue clonazePAM [Clonazepam] 0.5 mg PO BIDPRN PRN PRN Reason: Anxiety Levothyroxine Sodium [Euthyrox] 50 mcg PO 0600 Potassium Chloride Tab* [Klor Con] 10 meq PO BID Furosemide 20 mg [Lasix 20 mg] 20 mg PO 0600 Metoprolol Tartrate 25 mg [Lopressor 25MG Tab] 25 mg PO HS Budesonide/Formoterol Fumarate [Budesonide-Formoterol 160-4.5] 1 puff IH DAILY Ezetimibe 10 mg [Zetia 10 MG] 10 mg PO DAILY Atorvastatin Calcium [Lipitor 40Mg] 40 mg PO HS Glimepiride 4 mg PO DAILY Metformin HCl 850 mg [Glucophage 850 MG] 850 mg PO BID Clopidogrel Bisulfate [PLAVIX Tablet] 75 mg PO DAILY #0 Additional Instructions: CARE HOME ORDERS: ADMIT TO [facility]P [facility]ARE FACILITY FOLLOW UP WITH DR. SOSA OFFICE IN 2 WEEKS NON WEIGHT BEARING TO TOE TOUCH BAND AIDS TO INCISION SITES UPON 1999 ADA CONSISTANT CARB DIET ACCUCHECKS AC AND HS PT/OT EVAL AND TREAT: SEE WEIGHT BEARING RESTRICTIONS ABOVE OXYGEN AT 3L/NC- WEAN TOLERATED (PATIENT DOES NOT WEAR AT HOME) SEE ATTACHED MED LIST Follow up with: ZAYNAB SANCHEZ [Primary Care Provider] - 05/14/24 1:15 pm DAVID SOSA DO [ACTIVE STAFF] - 05/21/24 1:15 pm
== END 2024-05-07 11:54 | DRG 481 ==
LOC: ED 11:05 → MED SURG 14:55
PROVIDERS: ADMIT Internal Medicine; ATTEND Internal Medicine
PROC: 0QS606Z Reposition Right Upper Femur with Intramedullary Internal Fixation Device, Open Approach (ICD-10-PCS; principal; 2024-05-05)
DX: S72.141A Displaced intertrochanteric fracture of right femur, initial encounter for closed fracture (principal); Z59.811 Housing instability, housed, with risk of homelessness; E78.5 Hyperlipidemia, unspecified; E11.9 Type 2 diabetes mellitus without complications; I10 Essential (primary) hypertension; W19.XXXA Unspecified fall, initial encounter; I25.10 Atherosclerotic heart disease of native coronary artery without angina pectoris; I25.2 Old myocardial infarction; Z95.0 Presence of cardiac pacemaker; Z79.01 Long term (current) use of anticoagulants; Z79.899 Other long term (current) drug therapy
CPT/HCPCS: 27248; 36415; 51702; 71045; 73502; 73552; 76000; 80053; 82947; 83036; 84134; 85025; 85610; 93005; 94640; 94762; 96374; 96375; 97161; 97530; 99285; Q3014; 99211; 99284; C1713; J0690; J1100; J1171; J1790; J1817; J2060; J2175; J2405; J2704; J3010; A9270-GY